=== PATIENT | female | born 1985 | race Caucasian/White ===

== ENCOUNTER 2020-03-23 15:41 | Emergency (ER) | payer MEDICAID ==
[~2020-03-23] VITALS: Ht 167.6 cm; Wt 100.0 kg
[2020-03-23] MEDS ORDERED: ONDANSETRON PF 4 MG/2 ML VIAL. IVP ONE (16:15)
[2020-03-23] MEDS ORDERED: fentaNYL PF VIAL 100 MCG/2 ML VIAL IVP ONE ×2 (16:15→18:30)
[2020-03-23] MEDS ORDERED: IV NORMAL SALINE 1000ML BAG 1,000 ML IV SCH (16:15)
--- NOTE | 2020-03-23 16:20 | PHYS DOC ---
General Adult EDM: Chief Complaint: ABDOMINAL PAIN HPI: HPI: Patient is a 34 year old female who presents with 2 days ago began having bilateral lower abdominal "sharp tearing type pain". She states that she was taking Tylenol for the pain. She rates an 8 out of 10 states is constant. She states an hour ago she got up and began having vaginal bleeding of which she states she felt a gush of blood but the bleeding slowed down and she states she is not bleeding heavily. She rates her pain an 8 out of 10. She states that she does have low bilateral back pain that is aching also. Patient states she has had 3 C-sections, tubal ligation. She states she has not been to a thread grinder tool in quite some time. She states she also has endometriosis. States she is not due for her menstrual period until April 03. Review of Systems: Review of Systems: Constitutional: Denies fever or chills. [] Eyes: Denies change in visual acuity. [] HENT: Denies nasal congestion or sore throat. [] Respiratory: Denies cough or shortness of breath. [] Cardiovascular: Denies chest pain or edema. [] GI: + abdominal pain, +nausea, +vomiting, denies bloody stools or diarrhea. [] : Denies dysuria.+ Vaginal bleeding [] Musculoskeletal: + Bilateral lower back pain or joint pain. [] Integument: Denies rash. [] Neurologic: Denies headache, focal weakness or sensory changes. [] Endocrine: Denies polyuria or polydipsia. [] Lymphatic: Denies swollen glands. [] Psychiatric: Denies depression or anxiety. [] Heart Score: Risk Factors: Risk Factors: DM, Current or recent (<one month) smoker, HTN, HLP, family history of CAD, obesity. Risk Scores: Score 0 - 3: 2.5% MACE over next 6 weeks - Discharge Home Score 4 - 6: 20.3% MACE over next 6 weeks - Admit for Clinical Observation Score 7 - 10: 72.7% MACE over next 6 weeks - Early Invasive Strategies Current Medications: Current Medications Medications (Trade) Dose Ordered Sig/Lexii Start Time Stop Time Status Last Admin Dose Admin Fentanyl Citrate (Fentanyl 2ml Vial) 50 mcg 1X ONCE 03/23/20 16:15 03/23/20 16:16 Ondansetron HCl (Zofran) 4 mg 1X ONCE 03/23/20 16:15 03/23/20 16:16 Sodium Chloride 1,000 ml @ 1,000 mls/hr Q1H 03/23/20 16:15 03/23/20 17:14 Allergies: Allergies: Allergies Coded Allergies Type Severity Reaction Last Updated Verified No Known Drug Allergies 03/23/20 No Physical Exam: PE: Constitutional: Well developed, well nourished, no acute distress, non-toxic appearance. [] HENT: Normocephalic, atraumatic, bilateral external ears normal, oropharynx moist, no oral exudates, nose normal. [] Eyes: PERRLA, EOMI, conjunctiva normal, no discharge. [] Neck: Normal range of motion, no tenderness, supple, no stridor. [] Cardiovascular:Heart rate regular rhythm, no murmur [] Lungs & Thorax: Bilateral breath sounds clear to auscultation [] Abdomen: Bowel sounds normal, soft, bilateral lower tenderness, no masses, no pulsatile masses. [] Skin: Warm, dry, no erythema, no rash. [] Back: No tenderness, no CVA tenderness. [] Extremities: No tenderness, no cyanosis, no clubbing, ROM intact, no edema. [] Neurologic: Alert and oriented X 3, normal motor function, normal sensory function, no focal deficits noted. [] Psychologic: Affect normal, judgement normal, mood normal. [] EKG: EKG: [] Radiology/Procedures: Radiology/Procedures: [] Impression: [facility] [address] [place] [address] IMAGING REPORT Signed PATIENT: ZACH RUIZ ACCOUNT: [id number] : 1985 LOCATION: ER AGE: 34 SEX: F EXAM STATUS: REG ER ORD. PHYSICIAN: SARITA GOLDBERG APRN REASON: vomiting, sharp lower abd pain, tenderness lower PROCEDURE: CT ABD PELV W/ IV CONTRST ONLY INDICATION: Reason: vomiting, sharp lower abd pain, tenderness lower / Spl. Instructions: INJ 75ML OMNI 300 / History: . COMPARISON: July 2012 TECHNIQUE: Axial CT images obtained through the abdomen and pelvis with contrast. One or more of the following individualized dose reduction techniques were utilized for this examination: 1. Automated exposure control; 2. Adjustment of the mA and/or kV according to patient size; 3. Use of iterative reconstruction technique. FINDINGS: The abdominal aorta is not aneurysmal. No intrahepatic bile duct dilation. No peripancreatic fluid collection. Spleen unremarkable. Left adrenal nodule measuring up to 22 mm. Right adrenal nodule measuring up to 25 mm. No hydronephrosis. High density at the right renal pelvis could be from nonobstructive stone. The urinary bladder is decompressed with some prominence the wall but limited assessment secondary to decompression. Uterus is visualized. Colonic diverticulosis. Wall thickening of the sigmoid colon with adjacent edema to the fat. No periappendiceal inflammatory changes. No dilated loops of bowel suggest obstruction. There is some degenerative changes the spine. IMPRESSION: * Wall thickening and inflammatory changes at the sigmoid colon which can be seen with diverticulitis. * Bilateral adrenal nodules are identified and not well characterized on this exam. If more complete characterization is desired either CT or MRI adrenal protocol could further assess. Electronically signed by: Leny Vasquez MD (03/23/2020 5:28 PM) [id number] DICTATED and SIGNED BY: LENY VASQUEZ MD DATE: 03/23/20 [id number] [facility] [address] [place], [place] [id number] IMAGING REPORT Signed PATIENT: ZACH RUIZ ACCOUNT: [id number] : 1985 LOCATION: ER AGE: 34 SEX: F EXAM STATUS: REG ER ORD. PHYSICIAN: SARITA GOLDBERG APRN REASON: pelvic pain, vaginal bleeding PROCEDURE: PELVIS W/TV EXAM: Pelvic sonogram. HISTORY: Pain. Vaginal bleeding. TECHNIQUE: Sonographic imaging of the pelvis was performed. COMPARISON: None. FINDINGS: The uterus is normal in size. The endometrial stripe is normal in thickness. The ovaries are unremarkable. There is no pelvic free fluid. There are prominent air-filled loops of bowel within the pelvis. IMPRESSION: Prominent air-filled loops of bowel within the pelvis. Otherwise, unremarkable pelvic sonogram. Electronically signed by: January Mcguire MD (03/23/2020 6:42 PM) [facility] DICTATED and SIGNED BY: JANUARY MCGUIRE MD DATE: 03/23/20 [id number] 0 Course & Med Decision Making: Course & Med Decision Making Pertinent Labs and Imaging studies reviewed. (See chart for details) See HPI. Bilateral lower abdominal tenderness with palpation. Patient states she feels bloated. Abdomen is soft. Slightly distended. No CVA tenderness. Vital signs within normal notes. Patient denies diarrhea, chest pain, shortness of air, dizziness, headache, focal weakness, numbness or tingling, vision changes, syncope. She denies any concern for sexually transmitted disease. She states she has been keeping water down but had been vomiting for last couple days and has not eaten anything. Patient is p.o. challenge successfully. IMPRESSION: * Wall thickening and inflammatory changes at the sigmoid colon which can be seen with diverticulitis. * Bilateral adrenal nodules are identified and not well characterized on this exam. If more complete characterization is desired either CT or MRI adrenal protocol could further assess. Pelvic ultrasound shows no acute findings. Patient is tolerating p.o. She is afebrile. Patient is stable. Patient's urine is dirty. The ciprofloxacin will cover UTI if present. Being the patient is stable and in no acute distress and she is tolerating p.o. I think that it is appropriate that patient can go home and follow-up as an outpatient. Patient is given dose of Flagyl and ciprofloxacin in the ED. She will be sent home on Cipro and Flagyl and pain and nausea medicine. [] [place] Disclaimer: Dragrafiq Disclaimer: This electronic medical record was generated, in whole or in part, using a voice recognition dictation system. Departure Departure Impression: Primary Impression: Diverticulitis Additional Impression: Vaginal bleeding Disposition: DC HOME SELF CARE/HOMELESS Condition: STABLE Referrals: NON,STAFF (PCP) CATE GONG Jr, MD, SCOTT S MD Patient Instructions: Diverticulitis, Nausea and Vomiting Additional Instructions: Follow-up with a GI doctor I have referred you too, Dr Hitchcock. Also follow-up with a thread grinder tool if needed and we have also referred you to a thread grinder tool Dr Gong. Take medications as prescribed and with food. Do not drink any alcohol with the metronidazole as it will make you very sick to your stomach. If you are unable to hold down fluids or food or the medication return to the emergency room. Scripts Hydrocodone/Apap 5-325 (NORCO 5-325 TABLET) 1 Each Tablet 1 TAB PO PRN Q6HRS PRN for PAIN, #10 TAB 0 Refills Prov: SARITA GOLDBERG [employer] 03/23/20 Metronidazole (FLAGYL) 500 Mg Tablet 1 TAB PO BID, #14 TAB Prov: SARITA GOLDBERG [employer] 03/23/20 Ciprofloxacin Hcl (CIPRO) 500 Mg Tablet 1 TAB PO BID for 7 Days, #14 TAB 0 Refills Prov: SARITA GOLDBERG [employer] 03/23/20 Ondansetron (ONDANSETRON ODT) 4 Mg Tab.rapdis 1 TAB PO PRN Q6-8HRS, #24 TAB Prov: SARITA GOLDBERG [employer]ER 03/23/20 SARITA GOLDBERG APRN Mar 23, 2020 16:20
[2020-03-23 16:27] LABS: BASO # 0.1 x10^3/uL (0.0-0.2); BASO % 1 % (0-3); EOS # 0.3 x10^3/uL (0.0-0.7); EOS % 2 % (0-3); HEMATOCRIT 41.3 % (36.0-47.0); HEMOGLOBIN 13.8 g/dL (12.0-15.5); LYMPH # 3.3 x10^3/uL (1.0-4.8); LYMPH % 20 % (24-48); MEAN CORPUSCULAR HEMOGLOBIN 28 pg (25-35); MEAN CORPUSCULAR HGB CONC 34 g/dL (31-37); MEAN CORPUSCULAR VOLUME 85 fL (79-100); MONO # 1.4 x10^3/uL (0.0-1.1); MONO % 8 % (0-9); NEUT # 11.3 x10^3/uL (1.8-7.7); NEUT % 69 % (31-73); PLATELET COUNT 353 x10^3/uL (140-400); RED BLOOD COUNT 4.86 x10^6/uL (3.50-5.40); RED CELL DISTRIBUTION WIDTH 14.1 % (11.5-14.5); WHITE BLOOD COUNT 16.3 x10^3/uL (4.0-11.0)
[2020-03-23 16:34] LABS: CALCIUM 9.7 mg/dL (8.5-10.1); CREATININE 0.7 mg/dL (0.6-1.0); GFR 95.2; POTASSIUM 4.3 mmol/L (3.5-5.1)
[2020-03-23 16:40] LABS: ALBUMIN 3.6 g/dL (3.4-5.0); ALBUMIN/GLOBULIN RATIO 0.9 (1.0-1.7); TOTAL BILIRUBIN 0.4 mg/dL (0.2-1.0); TOTAL PROTEIN 7.8 g/dL (6.4-8.2)
[2020-03-23] MEDS ORDERED: CONTRAST GIVEN. MC PRN (16:45)
[2020-03-23] MEDS ORDERED: IOHEXOL 300 MG/ML 100ML VIAL. IV ONE (16:45)
--- NOTE | 2020-03-23 17:31 | RAD ---
INDICATION: Reason: vomiting, sharp lower abd pain, tenderness lower / Spl. Instructions: INJ 75ML OMNI 300 / History: . COMPARISON: July 2012 TECHNIQUE: Axial CT images obtained through the abdomen and pelvis with contrast. One or more of the following individualized dose reduction techniques were utilized for this examination: 1. Automated exposure control; 2. Adjustment of the mA and/or kV according to patient size; 3. Use of iterative reconstruction technique. FINDINGS: The abdominal aorta is not aneurysmal. No intrahepatic bile duct dilation. No peripancreatic fluid collection. Spleen unremarkable. Left adrenal nodule measuring up to 22 mm. Right adrenal nodule measuring up to 25 mm. No hydronephrosis. High density at the right renal pelvis could be from nonobstructive stone. The urinary bladder is decompressed with some prominence the wall but limited assessment secondary to decompression. Uterus is visualized. Colonic diverticulosis. Wall thickening of the sigmoid colon with adjacent edema to the fat. No periappendiceal inflammatory changes. No dilated loops of bowel suggest obstruction. There is some degenerative changes the spine. IMPRESSION: * Wall thickening and inflammatory changes at the sigmoid colon which can be seen with diverticulitis. * Bilateral adrenal nodules are identified and not well characterized on this exam. If more complete characterization is desired either CT or MRI adrenal protocol could further assess. Electronically signed by: Maciel Chun MD (03/23/2020 5:28 PM) [id number]
[2020-03-23] MEDS ORDERED: CIPROFLOXACIN 400MG PREMIX 200 ML IV ONE (17:45)
[2020-03-23 18:20] LABS: BILIRUBIN,URINE SMALL (NEG); CLARITY,URINE CLOUDY; NITRITE,URINE NEGATIVE (NEG); PH,URINE 5.5 (<5.0-8.0); PROTEIN,URINE 30 mg/dL (NEG-TRACE)
[2020-03-23 18:30] LABS: COLOR,URINE DK YELLOW
[2020-03-23 18:32] LABS: BACTERIA,URINE MODERATE /HPF (0-FEW)
[2020-03-23 18:33] LABS: RBC,URINE OCC /HPF (0-2)
[2020-03-23 18:40] LABS: BARBITURATES NEG (NEG); BENZODIAZEPINES NEG (NEG); CANNABINOIDS NEG (NEG); COCAINE NEG (NEG); METHADONE NEG (NEG); OPIATES NEG (NEG); PHENCYCLIDINE NEG (NEG)
--- NOTE | 2020-03-23 18:44 | RAD ---
EXAM: Pelvic sonogram. HISTORY: Pain. Vaginal bleeding. TECHNIQUE: Sonographic imaging of the pelvis was performed. COMPARISON: None. FINDINGS: The uterus is normal in size. The endometrial stripe is normal in thickness. The ovaries are unremarkable. There is no pelvic free fluid. There are prominent air-filled loops of bowel within the pelvis. IMPRESSION: Prominent air-filled loops of bowel within the pelvis. Otherwise, unremarkable pelvic sonogram. Electronically signed by: January Pepe MD (03/23/2020 6:42 PM) [facility]
[2020-03-23 18:46] LABS: AMPHETAMINE/METHAMPHETAMINE NEG (NEG)
[2020-03-23] MEDS ORDERED: IV NORMAL SALINE 1000ML BAG 1,000 ML IV ONE (19:00)
[2020-03-23] MEDS ORDERED: CIPR500T94 PO (19:32)
[2020-03-23] MEDS ORDERED: ONDA4TAB12 PO (19:32)
[2020-03-23] MEDS ORDERED: METR500T PO (19:32)
[2020-03-23] MEDS ORDERED: HYDR-3164 PO (19:34)
[2020-03-23 20:33] VITALS: BP 112/68
== END 2020-03-23 20:55 | disposition home or self-care (01) ==
LOC: ER 15:41
DX: K57.32 Diverticulitis of large intestine without perforation or abscess without bleeding (principal); N93.9 Abnormal uterine and vaginal bleeding, unspecified; R10.31 Right lower quadrant pain; R10.32 Left lower quadrant pain; R11.2 Nausea with vomiting, unspecified
CPT/HCPCS: 36415; 74177; 76830; 76856; 80053; 80307; 81001; 81025; 83605; 83690; 85025; 87086; 96361; 96365; 96366; 96368; 96375; 96376; 99285; J0744; J2405; J3010; J3490; J7030; Q9967

== ENCOUNTER 2020-03-30 11:15 | Emergency (ER) | payer MEDICAID ==
[~2020-03-30] VITALS: Ht 167.6 cm; Wt 97.0 kg
[~2020-03-30 11:15] MED LIST: CIPR500T94 PO; HYDR-3164 PO; METR500T PO; ONDA4TAB12 PO
[2020-03-30] MEDS ORDERED: CONTRAST GIVEN. MC PRN (12:15)
--- NOTE | 2020-03-30 12:16 | PHYS DOC ---
Past Medical History Past Medical History: Diverticulitis, Other Additional Past Medical Histor: ENDOMETRIOSIS Past Surgical History: , Tubal ligation Smoking Status: Current Every Day Smoker Alcohol Use: None General Adult EDM: Chief Complaint: FEVER HPI: HPI: Patient is a 34 year old female presents to the emergency room for reevaluation of left lower quadrant abdominal pain. Patient was seen in this emergency room 1 week ago and diagnosed with diverticulitis. She is not having any diarrhea, states unsure when her last bowel movement was. She is nauseated with no vomiting. States this morning had a fever of 103 degrees. She has finished her antibiotics of Cipro and Flagyl. She states increased abdominal pain. States intermittently feeling lightheaded and unwell. She took her hydrocodone early this morning. Review of Systems: Review of Systems: Constitutional: Reports fever and chills. [] Eyes: Denies change in visual acuity. [] HENT: Denies nasal congestion or sore throat. [] Respiratory: Denies cough or shortness of breath. [] Cardiovascular: Denies chest pain or edema. [] GI: Reports abdominal pain, nausea, denies vomiting, bloody stools or diarrhea. [] : Denies dysuria. [] Musculoskeletal: Denies back pain or joint pain. [] Integument: Denies rash. Reports pruritic areas on skin [] Neurologic: Denies headache, focal weakness or sensory changes. [] Endocrine: Denies polyuria or polydipsia. [] Lymphatic: Denies swollen glands. [] Psychiatric: Denies depression or anxiety. [] Heart Score: Risk Factors: Risk Factors: DM, Current or recent (<one month) smoker, HTN, HLP, family history of CAD, obesity. Risk Scores: Score 0 - 3: 2.5% MACE over next 6 weeks - Discharge Home Score 4 - 6: 20.3% MACE over next 6 weeks - Admit for Clinical Observation Score 7 - 10: 72.7% MACE over next 6 weeks - Early Invasive Strategies Current Medications: Current Medications Medications (Trade) Dose Ordered Sig/Lexii Start Time Stop Time Status Last Admin Dose Admin Info (CONTRAST GIVEN -- Rx MONITORING) 1 each PRN DAILY PRN 03/30/20 12:15 04/01/20 12:14 Iohexol (Omnipaque 300 Mg/ml) 75 ml 1X ONCE 03/30/20 12:15 12/9/20 12:16 Morphine Sulfate (Morphine Sulfate) 4 mg PRN Q15MIN PRN 03/30/20 12:00 03/31/20 11:59 Sodium Chloride 1,000 ml @ 1,000 mls/hr Q1H 03/30/20 12:00 03/30/20 12:59 Allergies: Allergies: Allergies Coded Allergies Type Severity Reaction Last Updated Verified No Known Drug Allergies 03/23/20 No Physical Exam: PE: Constitutional: Well developed, well nourished, no acute distress, non-toxic appearance. [] HENT: Normocephalic, atraumatic, bilateral external ears normal, oropharynx moist, no oral exudates, nose normal. [] Eyes: PERRLA, EOMI, conjunctiva normal, no discharge. [] Neck: Normal range of motion, no tenderness, supple, no stridor. [] Cardiovascular:Heart rate regular rhythm, no murmur [] Lungs & Thorax: Bilateral breath sounds clear to auscultation [] Abdomen: Bowel sounds normal, soft, no tenderness, no masses, no pulsatile masses. [] Skin: Warm, dry, no erythema, no rash. [] Back: No tenderness, no CVA tenderness. [] Extremities: No tenderness, no cyanosis, no clubbing, ROM intact, no edema. [] Neurologic: Alert and oriented X 3, normal motor function, normal sensory function, no focal deficits noted. [] Psychologic: Affect normal, judgement normal, mood normal. [] Current Patient Data: Labs: Laboratory Tests Test 03/30/20 12:02 POC Urine HCG, Qualitative Hcg negative (Negative) Vital Signs: Vital Signs Date Time Temp Pulse Resp B/P (MAP) Pulse Ox O2 Delivery O2 Flow Rate FiO2 03/30/20 11:50 99.0 90 18 122/80 (94) 98 Room Air 99.0 EKG: EKG: [] Radiology/Procedures: Radiology/Procedures: []REASON: FEVER, INCR PAIN, RECENT DX DIVERTICULITIS PROCEDURE: CT ABD PELV W/ IV CONTRST ONLY Examination: CT ABD PELV W/ IV CONTRST ONLY History: Reason: FEVER, INCR PAIN, RECENT DX DIVERTICULITIS / Spl. Instructions: [id number] 75ml / History: Comparison/Correlation: 03/23/2020 CT abdomen and pelvis with contrast Findings: Axial images of the abdomen and pelvis were obtained following IV contrast. Sagittal and coronal reformatted images were provided. Visualized lung bases are clear. Liver, spleen, pancreas, and kidneys are normal. Gallbladder fossa is unremarkable. Bilateral adrenal gland nodules are low-attenuation and similar to previous exam likely representing benign adenomatous involvement. No extraluminal gas. Appendix is normal. No bowel obstruction. Diverticulosis is present. Inflammatory findings about the distal sigmoid colon have almost completely resolved. No loculated collections. No acute bony process. Bilateral adnexal follicles which are probably physiologic are again seen. Impression: Significant decrease in diverticulitis or other inflammatory process about the distal sigmoid colon. No loculated collection or extraluminal gas. No new inflammatory process or findings of perforation. Bilateral adrenal gland nodules are stable, representing benign adenomas. MRI to be considered for more conclusive assessment by nonemergent basis if longer term stability is otherwise unknown. PQRS Compliance Statement: One or more of the following individualized dose reduction techniques were utilized for this examination: 1. Automated exposure control 2. Adjustment of the mA and/or kV according to patient size 3. Use of iterative reconstruction technique Electronically signed by: Gilberto Araujo MD (03/30/2020 12:54 PM) [id number] Course & Med Decision Making: Course & Med Decision Making Pertinent Labs and Imaging studies reviewed. (See chart for details) [] Vital signs stable, patient afebrile, nontoxic in appearance. No leukocytosis, labs within normal limits, CT indicates marked resolution of div erticulitis without evidence of perforation or acute pathology, on reevaluation, pain is better, patient tolerated p.o. fluids as well as eating some crackers without nausea or vomiting. She states does have pain medication as well as Zofran still at home. She will advance her diet slowly, starting with clear fluids when she gets home. She has already made a follow-up appointment with GI, this appointment is in April. She requested Covid testing since she had a fever earlier this morning, she is aware these test results are pending at time of discharge and she should quarantine until results received. Return to emergency room for new or worsening symptoms. Angelica Disclaimer: Angelica Disclaimer: This electronic medical record was generated, in whole or in part, using a voice recognition dictation system. Departure Departure Impression: Primary Impression: Vomiting Qualified Codes: R11.2 - Nausea with vomiting, unspecified Additional Impression: Abdominal pain Qualified Codes: R10.32 - Left lower quadrant pain Condition: IMPROVED Referrals: NO PCP (PCP) Patient Instructions: Diverticulosis Additional Instructions: You have been tested for or diagnosed with COVID-19. It is an infection caused by a new type of coronavirus. COVID-19 will cause cold-like or mild flu symptoms in most. It can cause more severe symptoms like problems breathing in some. There is no treatment for COVID-19. The body will clear the infection over time. Self-care will help to ease discomfort. Steps to Take: Self-Care Rest as needed. Healthy habits may help you feel better. Steps include: Choose healthy foods including fruits and vegetables. Drink water throughout the day. Get plenty of sleep each night. If you smoke, try to quit. It may ease breathing. Avoid alcohol. Keep Others Healthy The virus can spread to others. Droplets are released every time you sneeze or cough. The droplets can get into the mouth, nose, or eyes of people near you and lead to infection. To lower the chances of spreading COVID-19 to others: Stay at home until your doctor has said it is safe to leave. If you tested positive this will mean staying isolated until both of the following are true: At least 7 days have passed since the start of illness. You are free of fever for at least 72 hours without the use of medicine. During this time: - Avoid public areas, events, or transportation. Do not return to work or school until your doctor has said it is safe to do so. - Call ahead if you need to go to a medical center. Let them know you may have COVID-19. It will help them guide you where to go. They may also ask you to wear a facemask when you come to the office. - If you call for emergency medical services, let them know you may have COVID- 19. While at home: - Try to avoid close contact with others. Stay about 6 feet away. - If possible, spend most of your time in a separate room from others. - Use a face mask if you will be in close contact with others such as sharing a room or vehicle. - Have someone wipe down common surfaces in the home. Use household mule tender every day on areas like doorknobs, counters, or sinks. - Cough or sneeze into a tissue. Throw the tissue away right after use. If a tissue is not available, cough or sneeze into your elbow. - Wash your hands often. Wash them after sneezing or coughing. Use soap and water and wash for at least 20 seconds. Alcohol based hand connie cleaner can be used if soap and water is not available. - Do not prepare food for others. Avoid sharing personal items like forks, spoons, or toothbrushes. - Avoid close contact with pets while you are sick. There is no evidence of the virus passing to pets. This is a safety step until more is known about this virus. Isolation can be frustrating. Social interaction can help. Keep in touch with friends and family through phone and tech options. You can still interact with others in your home, just keep a safe distance of about 6 feet. Follow-up: Your doctors office will check in with you to see if there are any changes in your health. You may be asked to keep track of symptoms to share with them. They will also let you know when you are clear to be in public again. Problems to Look Out For: Contact your doctor if your recovery is not going as you expect. Get emergency care if you have problems such as: - Trouble breathing - Nonstop chest pain or pressure - Changes in awareness, confusion, or problems waking - Lips or face have bluish color - Worsening of symptoms If you think you have an emergency, call for emergency medical services right aw ay. As taken from [facility] DULCE COPE APRN Mar 30, 2020 12:16
[2020-03-30 12:17] LABS: BASO # 0.1 x10^3/uL (0.0-0.2); BASO % 1 % (0-3); EOS # 0.3 x10^3/uL (0.0-0.7); EOS % 3 % (0-3); HEMATOCRIT 39.7 % (36.0-47.0); HEMOGLOBIN 13.2 g/dL (12.0-15.5); LYMPH # 3.4 x10^3/uL (1.0-4.8); LYMPH % 35 % (24-48); MEAN CORPUSCULAR HEMOGLOBIN 29 pg (25-35); MEAN CORPUSCULAR HGB CONC 33 g/dL (31-37); MEAN CORPUSCULAR VOLUME 86 fL (79-100); MONO # 0.8 x10^3/uL (0.0-1.1); MONO % 8 % (0-9); NEUT % 53 % (31-73); PLATELET COUNT 365 x10^3/uL (140-400); RED BLOOD COUNT 4.64 x10^6/uL (3.50-5.40); RED CELL DISTRIBUTION WIDTH 14.2 % (11.5-14.5); WHITE BLOOD COUNT 9.6 x10^3/uL (4.0-11.0)
[2020-03-30 12:18] LABS: BILIRUBIN,URINE NEGATIVE (NEG); CLARITY,URINE CLEAR; COLOR,URINE YELLOW; NITRITE,URINE NEGATIVE (NEG); PROTEIN,URINE NEGATIVE (NEG-TRACE); UROBILINOGEN,URINE 0.2 mg/dL (0.2 mg/dL)
[2020-03-30] MEDS: IOHEXOL 300 MG/ML 100ML VIAL. IV ONE (12:22)
[2020-03-30 12:26] LABS: CALCIUM 8.6 mg/dL (8.5-10.1); CREATININE 0.7 mg/dL (0.6-1.0); GFR 95.2; POTASSIUM 4.1 mmol/L (3.5-5.1)
[2020-03-30 12:32] LABS: ALBUMIN 3.5 g/dL (3.4-5.0); ALBUMIN/GLOBULIN RATIO 1.1 (1.0-1.7); TOTAL BILIRUBIN 0.1 mg/dL (0.2-1.0); TOTAL PROTEIN 6.8 g/dL (6.4-8.2)
[2020-03-30 12:34] LABS: BACTERIA,URINE FEW /HPF (0-FEW); RBC,URINE OCC /HPF (0-2)
[2020-03-30] MEDS: IV NORMAL SALINE 1000ML BAG 1,000 ML IV SCH (12:41)
[2020-03-30] MEDS: MORPHINE SULFATE 4 MG/ML VIAL. IV/SQ PRN (12:41)
--- NOTE | 2020-03-30 12:57 | RAD ---
Examination: CT ABD PELV W/ IV CONTRST ONLY History: Reason: FEVER, INCR PAIN, RECENT DX DIVERTICULITIS / Spl. Instructions: [id number] 75ml / History: Comparison/Correlation: 03/23/2020 CT abdomen and pelvis with contrast Findings: Axial images of the abdomen and pelvis were obtained following IV contrast. Sagittal and coronal reformatted images were provided. Visualized lung bases are clear. Liver, spleen, pancreas, and kidneys are normal. Gallbladder fossa is unremarkable. Bilateral adrenal gland nodules are low-attenuation and similar to previous exam likely representing benign adenomatous involvement. No extraluminal gas. Appendix is normal. No bowel obstruction. Diverticulosis is present. Inflammatory findings about the distal sigmoid colon have almost completely resolved. No loculated collections. No acute bony process. Bilateral adnexal follicles which are probably physiologic are again seen. Impression: Significant decrease in diverticulitis or other inflammatory process about the distal sigmoid colon. No loculated collection or extraluminal gas. No new inflammatory process or findings of perforation. Bilateral adrenal gland nodules are stable, representing benign adenomas. MRI to be considered for more conclusive assessment by nonemergent basis if longer term stability is otherwise unknown. PQRS Compliance Statement: One or more of the following individualized dose reduction techniques were utilized for this examination: 1. Automated exposure control 2. Adjustment of the mA and/or kV according to patient size 3. Use of iterative reconstruction technique Electronically signed by: Gilberto Araujo MD (03/30/2020 12:54 PM) [id number]
[2020-03-30 14:23] VITALS: BP 124/66
== END 2020-03-30 14:35 | disposition home or self-care (01) ==
LOC: ER 11:15
DX: R10.32 Left lower quadrant pain (principal); R11.2 Nausea with vomiting, unspecified; Z20.828 Contact with and (suspected) exposure to other viral communicable diseases; F17.200 Nicotine dependence, unspecified, uncomplicated; Z98.51 Tubal ligation status
CPT/HCPCS: 36415; 74177; 80053; 81001; 81025; 83690; 85025; 93005; 96361; 96374; 99285; C9803; J2270; J7030; Q9967; U0003

== ENCOUNTER → 2020-04-01 | Outpatient (CLI) | payer MEDICAID, OTHER ==
[2020-03-30 14:23] VITALS: BP 124/66
[2020-04-01 11:03] LABS: BASO # 0.1 x10^3/uL (0.0-0.2); BASO % 1 % (0-3); EOS # 0.2 x10^3/uL (0.0-0.7); EOS % 3 % (0-3); HEMATOCRIT 39.3 % (36.0-47.0); HEMOGLOBIN 13.2 g/dL (12.0-15.5); LYMPH # 2.5 x10^3/uL (1.0-4.8); LYMPH % 28 % (24-48); MEAN CORPUSCULAR HEMOGLOBIN 29 pg (25-35); MEAN CORPUSCULAR HGB CONC 34 g/dL (31-37); MEAN CORPUSCULAR VOLUME 85 fL (79-100); MONO # 0.7 x10^3/uL (0.0-1.1); MONO % 8 % (0-9); NEUT # 5.4 x10^3/uL (1.8-7.7); NEUT % 61 % (31-73); PLATELET COUNT 361 x10^3/uL (140-400); RED BLOOD COUNT 4.61 x10^6/uL (3.50-5.40); RED CELL DISTRIBUTION WIDTH 13.9 % (11.5-14.5)
[2020-04-01 11:36] LABS: FREE T4 1.05 ng/dL (0.76-1.46); THYROID STIM HORMONE (TSH) 1.539 uIU/mL (0.358-3.74)
== END ==
LOC: LAB 10:31
PROVIDERS: ATTEND Obstetrics & Gynecology
DX: N92.0 Excessive and frequent menstruation with regular cycle (principal); N94.6 Dysmenorrhea, unspecified
CPT/HCPCS: 36415; 84146; 84439; 84443; 85025

== ENCOUNTER 2020-04-20 08:48 | Emergency (ER) | payer OTHER ==
[~2020-04-20] VITALS: Ht 167.6 cm; Wt 95.0 kg
[2020-04-20 09:01] VITALS: BP 159/67
[2020-04-20] MEDS ORDERED: NEOM10DR32 LEFT EAR (09:42)
--- NOTE | 2020-04-20 09:43 | ED.ADGEN ---
Past Medical History Past Medical History: Diverticulitis, Other Additional Past Medical Histor: ENDOMETRIOSIS Past Surgical History: , Tubal ligation Smoking Status: Current Every Day Smoker Alcohol Use: None General Adult EDM: Chief Complaint: EARACHE/EAR PAIN HPI: HPI: Patient is a 34 year old female who presents emergency department with complaints of left ear pain with yellow and blood-streaked drainage for the last few days. Patient denies any fever, cough, shortness of breath, sore throat, body aches, fatigue, rash, nausea, vomiting, diarrhea, or abdominal pain. Patient reports that she is having difficulty hearing out of her left ear. She denies any injury. Patient denies any routine use of airbags, she does not routinely put things in her ear. She currently rates her pain a 10 out of 10 on the pain scale, she denies any alleviating factors. Pain is worse with touch. Review of Systems: Review of Systems: Complete ROS is negative unless otherwise noted in HPI. Allergies: Allergies: Allergies Coded Allergies Type Severity Reaction Last Updated Verified No Known Drug Allergies 03/23/20 No Physical Exam: PE: See Above Constitutional: Well developed, well nourished, no acute distress, non-toxic appearance. [] HENT: Normocephalic, atraumatic, right external ear normal, bilateral TMs normal, nose normal; left external ear canal is swollen, red, warm, and tender to touch, concerning for otitis externa, no mastoid TTP or erythema Eyes: PERRLA, EOMI, conjunctiva normal, no discharge. [] Neck: Normal range of motion, no stridor; left anterior cervical chain enlargement, without tenderness Cardiovascular:Heart rate regular rhythm Lungs & Thorax: Respirations even and unlabored, no retractions, no respiratory distress Skin: Warm, dry, no erythema, no rash. [] Extremities: No cyanosis, ROM intact, no edema. [] Neurologic: Alert and oriented X 3, no focal deficits noted. [] Psychologic: Affect normal, judgement normal, mood normal. [] Current Patient Data: Vital Signs: Vital Signs Date Time Temp Pulse Resp B/P (MAP) Pulse Ox O2 Delivery O2 Flow Rate FiO2 04/20/20 09:01 99.5 80 18 159/67 (97) 96 Room Air 99.5 EKG: EKG: [] Heart Score: Risk Factors: Risk Factors: DM, Current or recent (<one month) smoker, HTN, HLP, family history of CAD, obesity. Risk Scores: Score 0 - 3: 2.5% MACE over next 6 weeks - Discharge Home Score 4 - 6: 20.3% MACE over next 6 weeks - Admit for Clinical Observation Score 7 - 10: 72.7% MACE over next 6 weeks - Early Invasive Strategies Radiology/Procedures: Radiology/Procedures: [] Course & Med Decision Making: Course & Med Decision Making Pertinent Labs and Imaging studies reviewed. (See chart for details) Attestation; I was personally available to the midlevel provider for consul tation with respect to patient care. All documentation, lab results and imaging have been reviewed and I am in agreement with the developed plan provided by the midlevel practitioner. Angelica Disclaimer: Angelica Disclaimer: This electronic medical record was generated, in whole or in part, using a voice recognition dictation system. Departure Departure Impression: Primary Impression: Diffuse otitis externa, left ear Disposition: 01 DC HOME SELF CARE/HOMELESS Condition: STABLE Referrals: NO PCP (PCP) Patient Instructions: Otitis Externa, [id number] Additional Instructions: Fill the prescription and use it as directed. You may take Tylenol or ibuprofen as needed for pain. Follow-up with your primary care doctor in 1 to 2 days for reevaluation, return to the ER if symptoms worsen or fever develops. Scripts Neomycin/Polymyxin B Sulf/Hc ([id number]-UT EAR SUSP) 10 Ml Drops.susp 4 DROP LEFT EAR TID for 7 Days, #10 ML 0 Refills Prov: NANCY CULP APRN 04/20/20 Problem Qualifiers Primary Impression: Diffuse otitis externa, left ear Chronicity: acute Qualified Codes: H60.312 - Diffuse otitis externa, left ear NANCY CULP APRN Apr 20, 2020 09:43 NASIM HOLLY DO Apr 20, 2020 16:00
== END 2020-04-20 09:45 | disposition home or self-care (01) ==
LOC: ER 08:48
DX: H60.312 Diffuse otitis externa, left ear (principal); F17.200 Nicotine dependence, unspecified, uncomplicated
CPT/HCPCS: 99283

== ENCOUNTER → 2020-05-09 | Outpatient (CLI) | payer MEDICAID, OTHER ==
[2020-04-20 09:01] VITALS: BP 159/67
[~2020-05-09] MED LIST changes: +ASPI-886 PO; +BUPR100T7 PO; +CEPH500T PO; +DOCU-109 PO; +GABA300C18 PO; +HYDR-2761 PO; +IBUP-1007 PO; +MAGN296S68 PO; +METF500T16 PO; +NEOM10DR32 LEFT EAR; +ORPH100T PO; +OXYC1TAB15 PO; +POLY17PO29 PO
== END ==
LOC: LAB 10:36
PROVIDERS: ATTEND Obstetrics & Gynecology
DX: Z01.812 Encounter for preprocedural laboratory examination (principal); N94.6 Dysmenorrhea, unspecified; Z20.828 Contact with and (suspected) exposure to other viral communicable diseases
CPT/HCPCS: U0003

== ENCOUNTER 2020-05-12 05:46 | Observation (INO) | payer MEDICAID ==
[~2020-05-12] VITALS: Ht 167.6 cm; Wt 99.0 kg
[2020-05-12] VITALS (14 sets, daily range): BP systolic 100–122; BP diastolic 46–76
[~2020-05-12 05:46] MED LIST changes: -ASPI-886 PO; -BUPR100T7 PO; -CEPH500T PO; -DOCU-109 PO; -GABA300C18 PO; -HYDR-2761 PO; -IBUP-1007 PO; -MAGN296S68 PO; -METF500T16 PO; -ORPH100T PO; -OXYC1TAB15 PO; -POLY17PO29 PO
[2020-05-12] MEDS: IV RINGERS,LACTATED 1000ML 1,000 ML IV SCH ×3 (06:28→11:08)
[2020-05-12] MEDS ORDERED: PROPOFOL 10 MG/ML (20ML) VIAL. IV ONE (06:36)
[2020-05-12] MEDS ORDERED: DEXAMETHASONE SOD PHOS 4 MG/ML VIAL ONE (06:37)
[2020-05-12] MEDS ORDERED: ONDANSETRON PF 4 MG/2 ML VIAL. ONE (06:37)
[2020-05-12] MEDS ORDERED: ROCURONIUM 50 MG/5 ML VIAL. ONE ×2 (06:37→07:55)
[2020-05-12] MEDS ORDERED: LIDOCAINE 2% PF 5 ML VIAL. ONE (06:37)
[2020-05-12] MEDS ORDERED: PROCHLORPERAZINE 10 MG/2 ML VIAL. IV PRN ×2 (07:00→09:30)
[2020-05-12] MEDS ORDERED: HYDROmorphone 2 MG/ML VIAL IV PRN (07:00)
[2020-05-12] MEDS ORDERED: fentaNYL PF VIAL 100 MCG/2 ML VIAL IV PRN (07:00)
[2020-05-12] MEDS ORDERED: ONDANSETRON PF 4 MG/2 ML VIAL. IV PRN ×2 (07:00→09:30)
[2020-05-12 07:15] LABS: BASO # 0.1 x10^3/uL (0.0-0.2); BASO % 1 % (0-3); EOS # 0.3 x10^3/uL (0.0-0.7); EOS % 4 % (0-3); HEMATOCRIT 37.5 % (36.0-47.0); HEMOGLOBIN 12.7 g/dL (12.0-15.5); LYMPH # 2.4 x10^3/uL (1.0-4.8); LYMPH % 28 % (24-48); MEAN CORPUSCULAR HEMOGLOBIN 29 pg (25-35); MEAN CORPUSCULAR HGB CONC 34 g/dL (31-37); MEAN CORPUSCULAR VOLUME 85 fL (79-100); MONO # 0.8 x10^3/uL (0.0-1.1); MONO % 9 % (0-9); NEUT # 5.2 x10^3/uL (1.8-7.7); NEUT % 59 % (31-73); PLATELET COUNT 320 x10^3/uL (140-400); RED CELL DISTRIBUTION WIDTH 14.3 % (11.5-14.5); WHITE BLOOD COUNT 8.8 x10^3/uL (4.0-11.0)
[2020-05-12] MEDS ORDERED: SURGICEL HEMOSTAT 4X8 EACH. ONE (07:34)
[2020-05-12] MEDS ORDERED: INDIGOTINDISULFONATE SODIUM 40 MG/5 ML AMPUL. ONE (07:34)
[2020-05-12] MEDS ORDERED: ESTROGENS, CONJ VAGINAL CREAM 30GM TUBE. ONE (07:34)
[2020-05-12] MEDS ORDERED: BUPIVACAINE-EPI 0.25% 30 ML VIAL KIT. ONE (07:35)
[2020-05-12] MEDS ORDERED: LIDOCAINE 2%/EPI 1:100,000 20 ML VIAL. ONE ×2 (07:35→07:57)
[2020-05-12] MEDS ORDERED: MIDAZOLAM HCL/PF 2 MG/2 ML VIAL. ONE (07:38)
[2020-05-12] MEDS ORDERED: SEVOFLURANE 61 TO 120 MINUTES. IH ONE (07:38)
[2020-05-12] MEDS ORDERED: fentaNYL PF VIAL 100 MCG/2 ML VIAL ONE ×2 (07:39→09:51)
[2020-05-12] MEDS ORDERED: ceFAZolin SODIUM IV Push 1 GM VIAL. IVP PRN (08:00)
[2020-05-12] MEDS ORDERED: ALBUTEROL SULFATE 8GM INHALER. INH ONE (08:36)
[2020-05-12] MEDS ORDERED: GLYCOPYRROLATE 1 MG/5 ML VIAL. ONE (08:52)
[2020-05-12] MEDS ORDERED: KETOROLAC 30 MG/ML VIAL. ONE (08:52)
[2020-05-12] MEDS ORDERED: NEOSTIGMINE 10 MG/10 ML VIAL. ONE (08:52)
--- NOTE | 2020-05-12 09:21 | PDOC ---
BRIEF OPERATIVE NOTE Date: May 12, 2020 Pre-Op Diagnosis 1. Menorrhagia 2. Dysmenorrhea 3. Dyspareunia Post-Op Diagnosis Same Procedure Performed [facility] Surgeon Dr. Gong Truck Cleaner Elevator Operator: Darvin Anesthesia Type: General Blood Loss 50 ml Specimens Obtained cervix and uterus Findings enlarged uterus, nml fallopian tubes and ovaries ba. Complications none Operative Note see dictation CATE GONG Jr, MD May 12, 2020 09:21
--- NOTE | 2020-05-12 09:29 | OP ---
DATE OF SURGERY: 05/12/2020 PREOPERATIVE DIAGNOSES: 1. Menorrhagia. 2. Dysmenorrhea. 3. Dyspareunia. POSTOPERATIVE DIAGNOSES: 1. Menorrhagia. 2. Dysmenorrhea. 3. Dyspareunia. PROCEDURE: LAVH. SURGEON: Cate Gong MD BOW MAKER CUSTOM: Darvin. ANESTHESIA: GETA. ESTIMATED BLOOD LOSS: 50 mL. COMPLICATIONS: None. FINDINGS: Enlarged uterus, normal fallopian tubes and ovaries bilaterally. SUMMARY: A 34-year-old with long history of menorrhagia, dysmenorrhea, and dyspareunia, unresponsive to medical treatment, requiring surgical management. The patient was counseled on risks, benefits and expectations of LAVH and voiced clear understanding to proceed. DESCRIPTION OF PROCEDURE: The patient was taken to surgery suite and placed in dorsal lithotomy position. She was prepped with Betadine for vaginal prep and ChloraPrep for abdominal prep. After adequate anesthesia, bivalve speculum was placed vaginally. Anterior lip of the cervix grasped with single tooth tenaculum. The uterine acorn manipulator was then placed. The bivalve speculum was removed. Attention was now placed on abdomen. Small transverse skin incision was made just below the umbilicus with the scalpel. Veress needle was then placed through the infraumbilical incision site. The abdomen was allowed to insufflate up to 1-1/2 liters CO2 gas. The Veress needle was then removed. A 5 mm trocar was placed. Scope was positioned. The uterus was enlarged. There were a few adhesions in the pelvic cul-de-sac. The fallopian tubes and ovaries appeared normal bilaterally. Two additional incisions made in the left lower quadrant, which 5 mm trocars were placed. With aid of graspers and EnSeal device, the right round ligament was coagulated and dissected. The right utero-ovarian pedicle was coagulated and dissected. The right broad ligament was coagulated and dissected down to the uterine artery. Same process took place with left adnexa. Bladder flap was created using sharp dissection with the EnSeal device and hydrodissection. The pedicles all hemostatic. We then proceeded vaginally. Weighted speculum and curved Lamoni placed vaginally. The single tooth tenaculum and uterine acorn manipulator were removed. Shaila clamps were placed on the anterior and posterior lip of the cervix. The cervix was then injected with 2% lidocaine with epinephrine in circumferential manner. Bovie cautery was utilized to circumscribe the cervix. The vaginal mucosa was dissected away from the lower uterine segment using blunt dissection with a moist Ray-Rhoda. Parametrial tissue and cardinal ligaments were clamped bilaterally, cut, and suture ligated. The posterior cul-de-sac was then entered sharply using curved Wilde scissors. Long weighted speculum were placed. Uterosacral ligaments were clamped bilaterally, cut, and suture ligated. Anterior cul-de-sac was entered bluntly. One additional pedicle was taken on the right side of the uterus, which was clamped, cut, and suture ligated. The cervix and uterus were then removed in their entirety. A modified Ott's culdoplasty incorporating the uterosacral ligaments bilaterally was performed using 0 Vicryl suture. The remainder of the vaginal cuff was reapproximated using 2-0 Vicryl suture in [id number] manner. Moist vaginal packing was placed. Attention was once again placed on abdomen. The abdomen was once again insufflated with 1-1/2 liters CO2 gas. The scope was positioned. The posterior vaginal cuff was visualized and was hemostatic and was verified with suction irrigation. Small amount of normal saline was left in posterior cul-de-sac. The trocars were then removed under direct visualization. Abdomen was allowed to deflate as much as possible along with mechanical manipulation. The three skin incisions were reapproximated using 4-0 Vicryl suture in subcuticular manner. A 0.25% Marcaine with epinephrine was injected at each incision site. The patient tolerated the procedure well and was taken to recovery room in stable condition. Sponge and needle count correct x 3. CATE GONG MD DR: RADHA/concepcion JOB#: [id number] / [id number]
[2020-05-12] MEDS ORDERED: ZOLPIDEM 5 MG TABLET. PO PRN (09:30)
[2020-05-12] MEDS ORDERED: SIMETHICONE 80 MG TAB.CHEW PO PRN (09:30)
[2020-05-12] MEDS ORDERED: KETOROLAC 30 MG/ML VIAL. IV PRN (09:30)
[2020-05-12] MEDS ORDERED: CALCIUM CARBONATE 500 MG TAB.CHEW PO PRN (09:30)
[2020-05-12] MEDS ORDERED: OPIUM/BELLADONNA 30/16.2MG SUPP.RECT. PR PRN (09:30)
[2020-05-12] MEDS ORDERED: diphenhydrAMINE HCL 25 MG CAPSULE PO PRN (09:30)
[2020-05-12] MEDS ORDERED: DEXTROSE 50% 25 GM / 50ML DISP.SYRIN. IV PRN (09:30)
[2020-05-12] MEDS ORDERED: 0.9 % SODIUM CHLORIDE 10 ML DISP.SYRIN. IV PRN (09:30)
[2020-05-12] MEDS ORDERED: diphenhydrAMINE 50 MG/ML VIAL IV PRN (09:30)
[2020-05-12] MEDS ORDERED: PROCHLORPERAZINE 10 MG/2 ML VIAL. ONE (09:50)
[2020-05-12] MEDS ORDERED: MORPHINE SULFATE 2 MG/ML VIAL. ONE (09:51)
[2020-05-12] MEDS: fentaNYL PF VIAL 100 MCG/2 ML VIAL IV PRN ×2 (09:55→10:53)
[2020-05-12] MEDS: MORPHINE SULFATE 2 MG/ML VIAL. IV PRN ×2 (09:55→10:54)
[2020-05-12] MEDS: oxyCODONE/APAP 5/325 1 TAB TABLET PO PRN ×3 (12:11→21:29)
[2020-05-12] MEDS: GABAPENTIN 300 MG CAPSULE. PO SCH ×2 (16:45→21:29)
[2020-05-12] MEDS ORDERED: ONDANSETRON ODT 4 MG TAB.RAPDIS. PO PRN (18:45)
[2020-05-13] MEDS: oxyCODONE/APAP 5/325 1 TAB TABLET PO PRN ×4 (01:33→14:18)
[2020-05-13 02:57] VITALS: BP 109/47
[2020-05-13] MEDS: GABAPENTIN 300 MG CAPSULE. PO SCH ×2 (06:09→14:16)
[2020-05-13 06:50] LABS: BASO # 0.1 x10^3/uL (0.0-0.2); BASO % 1 % (0-3); EOS # 0.1 x10^3/uL (0.0-0.7); EOS % 1 % (0-3); HEMATOCRIT 33.7 % (36.0-47.0); HEMOGLOBIN 11.1 g/dL (12.0-15.5); LYMPH # 2.8 x10^3/uL (1.0-4.8); LYMPH % 21 % (24-48); MEAN CORPUSCULAR HEMOGLOBIN 28 pg (25-35); MEAN CORPUSCULAR HGB CONC 33 g/dL (31-37); MEAN CORPUSCULAR VOLUME 86 fL (79-100); MONO # 1.1 x10^3/uL (0.0-1.1); MONO % 9 % (0-9); NEUT % 69 % (31-73); PLATELET COUNT 287 x10^3/uL (140-400); RED BLOOD COUNT 3.91 x10^6/uL (3.50-5.40); RED CELL DISTRIBUTION WIDTH 14.1 % (11.5-14.5); WHITE BLOOD COUNT 13.1 x10^3/uL (4.0-11.0)
[2020-05-13 07:00] VITALS: BP 103/71
[2020-05-13 09:45] VITALS: BP 126/58
--- NOTE | 2020-05-13 10:00 | NUR ---
Patient krause to be removed POD#1 per doctor order as well as her vaginal packing. At 0700 krause removed without any complications noted and around 0715 her vaginal packing was removed with only a small amount of blood present throughout the packing. Packing came out all in one piece. Telfa islands on her lap sites each had some small bloody drainage noted and were removed. Lap sites to the right and lower abdomen both covered back up with some steri strips but lap site near belly button left ASSURANCE SENIOR. Around 0945 patient was transferred to the toilet to try to void. About half way to the toilet she stated she was dizzy and felt as though the room was spinning. She was steady on her feet still and was able to make it to the toilet. She voided 200 mls with some slight burning noted post krause removal this AM. Dizziness started to go away so we were able to walk back to her bed but she complained of dizziness with that as well. Vital signs assessed once in bed and stable at that time. After about five minutes the dizziness went away. Headache now present. Will continue to monitor.
[2020-05-13 10:14] VITALS: BP 101/41
--- NOTE | 2020-05-13 15:38 | PDOC ---
SURGICAL PROGRESS NOTE DATE: 05/13/20 TIME: 15:37 Subjective Pt. feeling well. No complaints. Vital Signs Vital Signs Date Time Temp Pulse Resp B/P (MAP) Pulse Ox O2 Delivery O2 Flow Rate FiO2 05/13/20 14:18 95 Room Air 05/13/20 10:14 98.8 85 18 101/41 (61) 98.8 05/12/20 16:46 2.0 I&O Intake and Output 05/13/20 07:00 Intake Total 4900 ml Output Total 2215 ml Balance 2685 ml Intake Oral 1900 ml IV Total 3000 ml Output Urine Total 1925 ml Emesis 240 ml Estimated Blood Loss 50 ml General: Alert, Oriented X3, Cooperative HEENT: Atraumatic Lungs: Clear to auscultation Heart: Normal S1 Abdomen: Normal bowel sounds, Soft, No masses, Other (mild tenderness) Neuro: Normal gait Psych/Mental Status: Mental status NL Labs Laboratory Tests Test 05/12/20 06:00 05/12/20 06:16 05/13/20 06:26 White Blood Count 8.8 x10^3/uL (4.0-11.0) 13.1 x10^3/uL (4.0-11.0) Red Blood Count 4.40 x10^6/uL (3.50-5.40) 3.91 x10^6/uL (3.50-5.40) Hemoglobin 12.7 g/dL (12.0-15.5) 11.1 g/dL (12.0-15.5) Hematocrit 37.5 % (36.0-47.0) 33.7 % (36.0-47.0) Mean Corpuscular Volume 85 fL (79-100) 86 fL (79-100) Mean Corpuscular Hemoglobin 29 pg (25-35) 28 pg (25-35) Mean Corpuscular Hemoglobin Concent 34 g/dL (31-37) 33 g/dL (31-37) Red Cell Distribution Width 14.3 % (11.5-14.5) 14.1 % (11.5-14.5) Platelet Count 320 x10^3/uL (140-400) 287 x10^3/uL (140-400) Neutrophils (%) (Auto) 59 % (31-73) 69 % (31-73) Lymphocytes (%) (Auto) 28 % (24-48) 21 % (24-48) Monocytes (%) (Auto) 9 % (0-9) 9 % (0-9) Eosinophils (%) (Auto) 4 % (0-3) 1 % (0-3) Basophils (%) (Auto) 1 % (0-3) 1 % (0-3) Neutrophils # (Auto) 5.2 x10^3/uL (1.8-7.7) 9.0 x10^3/uL (1.8-7.7) Lymphocytes # (Auto) 2.4 x10^3/uL (1.0-4.8) 2.8 x10^3/uL (1.0-4.8) Monocytes # (Auto) 0.8 x10^3/uL (0.0-1.1) 1.1 x10^3/uL (0.0-1.1) Eosinophils # (Auto) 0.3 x10^3/uL (0.0-0.7) 0.1 x10^3/uL (0.0-0.7) Basophils # (Auto) 0.1 x10^3/uL (0.0-0.2) 0.1 x10^3/uL (0.0-0.2) Bedside Urine HCG, Qualitative Hcg negative (Negative) Laboratory Tests Test 05/13/20 06:26 White Blood Count 13.1 x10^3/uL (4.0-11.0) Red Blood Count 3.91 x10^6/uL (3.50-5.40) Hemoglobin 11.1 g/dL (12.0-15.5) Hematocrit 33.7 % (36.0-47.0) Mean Corpuscular Volume 86 fL (79-100) Mean Corpuscular Hemoglobin 28 pg (25-35) Mean Corpuscular Hemoglobin Concent 33 g/dL (31-37) Red Cell Distribution Width 14.1 % (11.5-14.5) Platelet Count 287 x10^3/uL (140-400) Neutrophils (%) (Auto) 69 % (31-73) Lymphocytes (%) (Auto) 21 % (24-48) Monocytes (%) (Auto) 9 % (0-9) Eosinophils (%) (Auto) 1 % (0-3) Basophils (%) (Auto) 1 % (0-3) Neutrophils # (Auto) 9.0 x10^3/uL (1.8-7.7) Lymphocytes # (Auto) 2.8 x10^3/uL (1.0-4.8) Monocytes # (Auto) 1.1 x10^3/uL (0.0-1.1) Eosinophils # (Auto) 0.1 x10^3/uL (0.0-0.7) Basophils # (Auto) 0.1 x10^3/uL (0.0-0.2) Assessment/Plan A: POD#1 s/p LAVH P: D/c home. Justicifation of Admission Dx: Justifications for Admission: Justification of Admission Dx: Yes CATE YOUNG Jr, MD May 13, 2020 15:38
[2020-05-13] MEDS ORDERED: DOCU-109 PO (15:40)
[2020-05-13] MEDS ORDERED: OXYC1TAB15 PO (15:40)
[2020-05-13] MEDS ORDERED: GABA300C18 PO (15:40)
--- NOTE | 2020-05-13 15:41 | DISCH ---
DISCHARGE INSTRUCTIONS Condition on Discharge Condition on Discharge: Stable Activity After Discharge Activity Instructions for Disc: Activity as tolerated Lifting Instructions after Dis: No heavy lifting Driving Instructions after Dis: No driving for 2 weeks Diet after Discharge Diet after Discharge: Regular Contacting the DRElissa after DC Call your doctor for: Concerns you may have Follow-Up Follow up with: Dr. Gong in 2 weeks CATE GONG Jr, MD May 13, 2020 15:41
[2020-05-13 16:15] VITALS: BP 118/80
--- NOTE | 2020-05-13 17:54 | NUR ---
Patient left with her son around 1630. Discharge education given to the patient by this nurse and the doctor prior to discharge. Steri strips over incisions are CDI with one fully DEMOLITIONIST. Patient voiding appropriately post krause removal. No more complaints of dizziness were present at discharge with doctor aware of earlier episode. Vital signs stable. No IV present. Scripts given to patient for percocet, gabapentin, and colace. No concerns noted at discharge.
== END 2020-05-13 16:30 | disposition home or self-care (01) ==
LOC: SURG 05:46 → 3 NORTH 09:21
PROVIDERS: ADMIT Obstetrics & Gynecology; ATTEND Obstetrics & Gynecology
DX: N92.0 Excessive and frequent menstruation with regular cycle (principal); N94.6 Dysmenorrhea, unspecified; N94.10 Unspecified dyspareunia; Z79.899 Other long term (current) drug therapy
CPT/HCPCS: 36415; 58550; 81025; 85025; 86850; 86900; 86901; 87086; G0378; G0379; J0690; J0780; J1100; J1885; J2250; J2270; J2405; J2704; J2710; J3010; J3490; J7120; 88307

== ENCOUNTER 2020-05-19 16:19 | Emergency (ER) | payer MEDICAID ==
[~2020-05-19] VITALS: Ht 167.6 cm; Wt 100.0 kg
[~2020-05-19 16:19] MED LIST changes: +DOCU-109 PO; +GABA300C18 PO; +OXYC1TAB15 PO
--- NOTE | 2020-05-19 17:07 | RAD ---
INDICATION: Reason: n/v. post hysterectomy, constipation Pain LLQ / Spl. Instructions: / History: COMPARISON: March 30, 2020 IMPRESSION: Abdomen: 3 views of the chest and abdomen obtained. Cardiac silhouette is near the upper limits of no rmal in size. No definite focal airspace consolidation. Air scattered throughout the large and small bowel in a grossly nonobstructive pattern. Electronically signed by: Maciel Chun MD (05/19/2020 5:05 PM) [id number]
[2020-05-19 17:36] LABS: BILIRUBIN,URINE NEGATIVE (NEG); CLARITY,URINE CLEAR; COLOR,URINE YELLOW; NITRITE,URINE NEGATIVE (NEG); PH,URINE 5.5 (<5.0-8.0); PROTEIN,URINE NEGATIVE (NEG-TRACE); UROBILINOGEN,URINE 0.2 mg/dL (0.2 mg/dL)
[2020-05-19 17:42] LABS: BACTERIA,URINE FEW /HPF (0-FEW)
[2020-05-19 17:43] LABS: RBC,URINE 0 /HPF (0-2)
--- NOTE | 2020-05-19 17:43 | PHYS DOC ---
Past Medical History Past Medical History: Diverticulitis, Other Additional Past Medical Histor: ENDOMETRIOSIS Past Surgical History: , Hysterectomy, Tubal ligation Smoking Status: Current Every Day Smoker Alcohol Use: None General Adult EDM: Chief Complaint: NAUSEA/VOMITING/DIARRHA HPI: HPI: Patient is a 34 year old female who presents to the ED today stating she had a hysterectomy on last week, was released from the hospital on Saturday. She states she has not had a bowel movement since last week when she had a hysterectomy. She states currently she is having some difficulties voiding. Is also complaining of nausea and vomiting. Denies any fever. She st ates she was on oxycodone for pain as well as gabapentin. Denies any fever. Reports abdominal bloating/distention. Review of Systems: Review of Systems: Constitutional: Denies fever or chills. [] Eyes: Denies change in visual acuity. [] HENT: Denies nasal congestion or sore throat. [] Respiratory: Denies cough or shortness of breath. [] Cardiovascular: Denies chest pain or edema. [] GI: Reports abdominal distention, constipation, nausea vomiting. Bloody stools or diarrhea. [] : Reports difficulty voiding. Denies dysuria. [] Musculoskeletal: Denies back pain or joint pain. [] Integument: Denies rash. [] Neurologic: Denies headache, focal weakness or sensory changes. [] Psychiatric: Denies depression or anxiety. [] Heart Score: Risk Factors: Risk Factors: DM, Current or recent (<one month) smoker, HTN, HLP, family histo ry of CAD, obesity. Risk Scores: Score 0 - 3: 2.5% MACE over next 6 weeks - Discharge Home Score 4 - 6: 20.3% MACE over next 6 weeks - Admit for Clinical Observation Score 7 - 10: 72.7% MACE over next 6 weeks - Early Invasive Strategies Allergies: Allergies: Allergies Coded Allergies Type Severity Reaction Last Updated Verified No Known Drug Allergies 05/12/20 No Physical Exam: PE: Constitutional: Well developed, well nourished, no acute distress, non-toxic appearance. [] HENT: Normocephalic, atraumatic, bilateral external ears normal, oropharynx moist, no oral exudates, nose normal. [] Eyes: PERRLA, EOMI, conjunctiva normal, no discharge. [] Neck: Normal range of motion, no tenderness, supple, no stridor. [] Cardiovascular:Heart rate regular rhythm, no murmur [] Lungs & Thorax: Bilateral breath sounds clear to auscultation [] Abdomen: Abdominal incisions noted consistent with laparoscopic hysterectomy, no signs of infection on incision site. Bowel sounds normal, soft, no tenderness, no masses, no pulsatile masses. [] Skin: Warm, dry, no erythema, no rash. [] Back: No tenderness, no CVA tenderness. [] Extremities: No tenderness, no cyanosis, no clubbing, ROM intact, no edema. [] Neurologic: Alert and oriented X 3, normal motor function, normal sensory function, no focal deficits noted. [] Psychologic: Affect normal, judgement normal, mood normal. [] Current Patient Data: Vital Signs: Vital Signs Date Time Temp Pulse Resp B/P (MAP) Pulse Ox O2 Delivery O2 Flow Rate FiO2 05/19/20 16:31 98.5 96 20 137/85 (102) 98 Room Air 98.5 EKG: EKG: [] Radiology/Procedures: Radiology/Procedures: []PROCEDURE: ACUTE ABDOMEN SERIES INDICATION: Reason: n/v. post hysterectomy, constipation Pain LLQ / Spl. Instructions: / History: COMPARISON: March 30, 2020 IMPRESSION: Abdomen: 3 views of the chest and abdomen obtained. Cardiac silhouette is near the upper limits of normal in size. No definite focal airspace consolidation. Air scattered throughout the large and small bowel in a grossly nonobstructive pattern. Electronically signed by: Leny Vasquez MD (05/19/2020 5:05 PM) [id number] DICTATED and SIGNED BY: LENY VASQUEZ MD DATE: 05/19/20 [id number] 0 Course & Med Decision Making: Course & Med Decision Making Pertinent Labs and Imaging studies reviewed. (See chart for details) This is a 34-year-old female patient presenting to the ED today reporting she had a hysterectomy on last week and currently has not had a bowel movement for 1 week. Complaining of nausea and vomiting as well as difficulty voiding. She was on oxycodone for pain which she ran out. Patient was able to void in the ED. urine noted for small amount of leukocytes and many squamous cell epithelium. Acute abdominal series noted for air scattered around the colon. I spoke with Dr. Gong. D/c to home with constipation management protocol. He did get Dulcolax and mag citrate in the ED. Angelica Disclaimer: Angelica Disclaimer: This electronic medical record was generated, in whole or in part, using a voice recognition dictation system. Departure Departure Impression: Primary Impression: Constipation Qualified Codes: K59.03 - Drug induced constipation Additional Impression: Nausea and vomiting Qualified Codes: R11.2 - Nausea with vomiting, unspecified Disposition: 01 DC HOME SELF CARE/HOMELESS Condition: STABLE Referrals: NO PCP (PCP) CATE GONG Jr, MD follow up as scheduled Patient Instructions: Constipation, Adult Additional Instructions: You were evaluated in the emergency room and noted to be constipated. We encourage you to increase your dietary fiber intake and water intake. Avoid taking pain pills, they tend to make people constipated. Take a stool softener twice a day. Take MiraLAX once a day. Please take magnesium citrate 1 more bottle when you get home and any time you feel constipated. If you do not have a bowel movement by midnight perform an enema. Follow-up with your WINDOW SHADE ESTIMATOR as scheduled Scripts Polyethylene Glycol 3350 (MIRALAX) 17 Gm Powd.pack 1 PACKET PO DAILY PRN for CONSTIPATION, #30 PACKET 0 Refills dissolve in water Prov: CARA PATEL APRN 05/19/20 CARA PATEL APRN May 19, 2020 17:43
[2020-05-19] MEDS ORDERED: BISACODYL 5 MG TABLET.DR. PO STA (18:02)
[2020-05-19] MEDS ORDERED: MAGNESIUM CITRATE 296 ML SOLUTION. PO ONE (18:15)
[2020-05-19] MEDS ORDERED: ONDANSETRON ODT 4 MG TAB.RAPDIS. PO ONE (18:15)
[2020-05-19] MEDS ORDERED: POLY17PO29 PO (18:23)
[2020-05-19 18:28] VITALS: BP 121/67
== END 2020-05-19 18:49 | disposition home or self-care (01) ==
LOC: ER 16:19
DX: K59.03 Drug induced constipation (principal); R11.2 Nausea with vomiting, unspecified; R14.0 Abdominal distension (gaseous); F17.200 Nicotine dependence, unspecified, uncomplicated; Z90.710 Acquired absence of both cervix and uterus; Z98.51 Tubal ligation status; Z98.890 Other specified postprocedural states
CPT/HCPCS: 74022; 81001; 87086; 99284

== ENCOUNTER 2020-06-08 13:25 | Emergency (ER) | payer MEDICAID ==
[~2020-06-08] VITALS: Ht 167.6 cm; Wt 90.9 kg
[~2020-06-08 13:25] MED LIST changes: +POLY17PO29 PO
[2020-06-08] MEDS ORDERED: MORPHINE SULFATE 2 MG/ML VIAL. IV/SQ PRN (14:15)
[2020-06-08] MEDS ORDERED: ASPIRIN 325 MG TABLET PO ONE (14:15)
[2020-06-08 14:28] LABS: BARBITURATES NEG (NEG); BENZODIAZEPINES NEG (NEG); CANNABINOIDS NEG (NEG); COCAINE NEG (NEG); METHADONE NEG (NEG); OPIATES NEG (NEG); PHENCYCLIDINE NEG (NEG)
[2020-06-08 14:29] LABS: BILIRUBIN,URINE NEGATIVE (NEG); CLARITY,URINE CLEAR; COLOR,URINE YELLOW; NITRITE,URINE NEGATIVE (NEG); PH,URINE 6.5 (<5.0-8.0); PROTEIN,URINE NEGATIVE (NEG-TRACE); UROBILINOGEN,URINE 0.2 mg/dL (0.2 mg/dL)
[2020-06-08 14:35] LABS: AMPHETAMINE/METHAMPHETAMINE NEG (NEG)
[2020-06-08] MEDS: NITROGLYCERIN SUBLINGUAL 0.4 MG BOTTLE OF 25. SL PRN ×3 (14:37→14:55)
[2020-06-08 14:41] LABS: BASO # 0.1 x10^3/uL (0.0-0.2); BASO % 1 % (0-3); EOS # 0.4 x10^3/uL (0.0-0.7); EOS % 4 % (0-3); LYMPH # 2.9 x10^3/uL (1.0-4.8); LYMPH % 28 % (24-48); MEAN CORPUSCULAR HEMOGLOBIN 28 pg (25-35); MEAN CORPUSCULAR HGB CONC 33 g/dL (31-37); MEAN CORPUSCULAR VOLUME 85 fL (79-100); MONO % 10 % (0-9); NEUT % 58 % (31-73); PLATELET COUNT 297 x10^3/uL (140-400); RED BLOOD COUNT 4.58 x10^6/uL (3.50-5.40); RED CELL DISTRIBUTION WIDTH 14.3 % (11.5-14.5); WHITE BLOOD COUNT 10.5 x10^3/uL (4.0-11.0)
[2020-06-08 14:52] LABS: BACTERIA,URINE MODERATE /HPF (0-FEW)
[2020-06-08 14:52] LABS: CALCIUM 9.5 mg/dL (8.5-10.1); CREATININE 0.6 mg/dL (0.6-1.0); GFR 113.8; POTASSIUM 4.5 mmol/L (3.5-5.1)
--- NOTE | 2020-06-08 14:54 | RAD ---
PROCEDURE: XR ABDOMEN COMP ACUTE STUDY DATE: 06/08/2020 CLINICAL INDICATION / HISTORY: Reason: chest pain / Spl. Instructions: / History: . TECHNIQUE: Upright PA chest, supine and upright films of the abdomen were obtained. COMPARISON: Abdominal x-ray of 05/17/2020 FINDINGS: AP view the chest reveals the lungs to be clear. Cardiac and mediastinal silhouette are u nremarkable. No free air is identified below the diaphragms. Supine and decubitus views of the abdo men reveal no dilated loops of bowel or air-fluid levels. Moderate stool in the large bowel is incide ntally noted. No organomegaly is present. No destructive osseous lesions. IMPRESSION: No radiographic evidence for bowel obstruction. Moderate stool in the large bowel could r eflect constipation in the appropriate clinical context. Electronically signed by: Maine Choudhary MD (06/08/2020 2:51 PM) [id number]
[2020-06-08 14:58] LABS: ALBUMIN 3.4 g/dL (3.4-5.0); MAGNESIUM 1.9 mg/dL (1.8-2.4); TOTAL BILIRUBIN 0.1 mg/dL (0.2-1.0); TOTAL PROTEIN 6.9 g/dL (6.4-8.2)
[2020-06-08 15:23] LABS: PROTHROMBIN TIME PATIENT 12.8 SEC (11.7-14.0)
[2020-06-08 15:27] LABS: D-DIMER < 0.27 ug/mlFEU (0.00-0.50)
[2020-06-08] MEDS ORDERED: CEPH500T PO (16:04)
[2020-06-08] MEDS ORDERED: POLY17PO29 PO (16:04)
[2020-06-08] MEDS ORDERED: MAGN296S68 PO (16:04)
--- NOTE | 2020-06-08 16:04 | PHYS DOC ---
Past Medical History Past Medical History: Diverticulitis, Other Additional Past Medical Histor: ENDOMETRIOSIS Past Surgical History: , Hysterectomy, Tubal ligation Smoking Status: Current Every Day Smoker Alcohol Use: Occasionally General Adult EDM: Chief Complaint: CHEST PAIN HPI: HPI: Patient is a 34 year old female patient with no significant medical history presenting today complaining of 7 out of 10 generalized chest pain that began last night. Patient describes the pain as burning throughout her chest going to her neck and arms. She states she has been taking Tums for this pain with no relief. Denies any shortness of breath. Denies any fever coughing or congestion. States pain is worse after certain meals. Denies anything specifically relieving the pain. Review of Systems: Review of Systems: Constitutional: Denies fever or chills. [] Eyes: Denies change in visual acuity. [] HENT: Denies nasal congestion or sore throat. [] Respiratory: Denies cough or shortness of breath. [] Cardiovascular: Reports chest pain GI: Denies abdominal pain, nausea, vomiting, bloody stools or diarrhea. [] : Denies dysuria. [] Musculoskeletal: Denies back pain or joint pain. [] Integument: Denies rash. [] Neurologic: Denies headache, focal weakness or sensory changes. [] Psychiatric: Denies depression or anxiety. [] Heart Score: HEART Score for Chest Pain: HEART Score for Chest Pain Response (Comments) Value History Slighlty/Non-Suspicious 0 ECG Normal 0 Age < 45 0 Risk Factors No Risk Factors 0 Troponin < Normal Limit 0 Total 0 Risk Factors: Risk Factors: DM, Current or recent (<one month) smoker, HTN, HLP, family history of CAD, obesity. Risk Scores: Score 0 - 3: 2.5% MACE over next 6 weeks - Discharge Home Score 4 - 6: 20.3% MACE over next 6 weeks - Admit for Clinical Observation Score 7 - 10: 72.7% MACE over next 6 weeks - Early Invasive Strategies Current Medications: Current Medications Medications (Trade) Dose Ordered Sig/Leixi Start Time Stop Time Status Last Admin Dose Admin Aspirin (Mamta Aspirin) 325 mg 1X ONCE 06/08/20 14:15 06/08/20 14:16 DC 06/08/20 14:38 325 MG Morphine Sulfate (Morphine Sulfate) 2 mg PRN Q15MIN PRN 06/08/20 14:15 2/18/21 14:14 06/08/20 14:39 2 MG Nitroglycerin (Nitrostat) 0.4 mg PRN Q5MIN PRN 06/08/20 14:15 06/09/20 14:14 06/08/20 14:55 0.4 MG Allergies: Allergies: Allergies Coded Allergies Type Severity Reaction Last Updated Verified No Known Drug Allergies 05/12/20 No Physical Exam: PE: Constitutional: Well developed, well nourished, no acute distress, non-toxic appearance. [] HENT: Normocephalic, atraumatic, bilateral external ears normal, oropharynx moist, no oral exudates, nose normal. [] Eyes: PERRLA, EOMI, conjunctiva normal, no discharge. [] Neck: Normal range of motion, no tenderness, supple, no stridor. [] Cardiovascular:Heart rate regular rhythm, no murmur [] Lungs & Thorax: Bilateral breath sounds clear to auscultation [] Abdomen: Bowel sounds normal, soft, no tenderness, no masses, no pulsatile masses. [] Skin: Warm, dry, no erythema, no rash. [] Back: No tenderness, no CVA tenderness. [] Extremities: No tenderness, no cyanosis, no clubbing, ROM intact, no edema. [] Neurologic: Alert and oriented X 3, normal motor function, normal sensory function, no focal deficits noted. [] Psychologic: Affect normal, judgement normal, mood normal. [] Current Patient Data: Labs: Laboratory Tests Test 06/08/20 14:07 06/08/20 14:15 06/08/20 15:03 Urine Collection Type Unknown Urine Color Yellow Urine Clarity Clear Urine pH 6.5 (<5.0-8.0) Urine Specific Coleman 1.025 (1.000-1.030) Urine Protein Negative mg/dL (NEG-TRACE) Urine Glucose (UA) Negative mg/dL (NEG) Urine Ketones (Stick) Negative mg/dL (NEG) Urine Blood Small (NEG) Urine Nitrite Negative (NEG) Urine Bilirubin Negative (NEG) Urine Urobilinogen Dipstick 0.2 mg/dL (0.2 mg/dL) Urine Leukocyte Esterase Moderate (NEG) Urine RBC 1-2 /HPF (0-2) Urine WBC 1-4 /HPF (0-4) Urine Squamous Epithelial Cells Many /LPF Urine Bacteria Moderate /HPF (0-FEW) Urine Mucus Slight /LPF Urine Opiates Screen Neg (NEG) Urine Methadone Screen Neg (NEG) Urine Barbiturates Neg (NEG) Urine Phencyclidine Screen Neg (NEG) Urine Amphetamine/Methamphetamine Neg (NEG) Urine Benzodiazepines Screen Neg (NEG) Urine Cocaine Screen Neg (NEG) Urine Cannabinoids Screen Neg (NEG) Urine Ethyl Alcohol Neg (NEG) White Blood Count 10.5 x10^3/uL (4.0-11.0) Red Blood Count 4.58 x10^6/uL (3.50-5.40) Hemoglobin 13.0 g/dL (12.0-15.5) Hematocrit 39.0 % (36.0-47.0) Mean Corpuscular Volume 85 fL (79-100) Mean Corpuscular Hemoglobin 28 pg (25-35) Mean Corpuscular Hemoglobin Concent 33 g/dL (31-37) Red Cell Distribution Width 14.3 % (11.5-14.5) Platelet Count 297 x10^3/uL (140-400) Neutrophils (%) (Auto) 58 % (31-73) Lymphocytes (%) (Auto) 28 % (24-48) Monocytes (%) (Auto) 10 % (0-9) H Eosinophils (%) (Auto) 4 % (0-3) H Basophils (%) (Auto) 1 % (0-3) Neutrophils # (Auto) 6.0 x10^3/uL (1.8-7.7) Lymphocytes # (Auto) 2.9 x10^3/uL (1.0-4.8) Monocytes # (Auto) 1.0 x10^3/uL (0.0-1.1) Eosinophils # (Auto) 0.4 x10^3/uL (0.0-0.7) Basophils # (Auto) 0.1 x10^3/uL (0.0-0.2) Sodium Level 141 mmol/L (136-145) Potassium Level 4.5 mmol/L (3.5-5.1) Chloride Level 104 mmol/L (98-107) Carbon Dioxide Level 27 mmol/L (21-32) Anion Gap 10 (6-14) Blood Urea Nitrogen 10 mg/dL (7-20) Creatinine 0.6 mg/dL (0.6-1.0) Estimated GFR (Cockcroft-Gault) 113.8 BUN/Creatinine Ratio 17 (6-20) Glucose Level 81 mg/dL (70-99) Calcium Level 9.5 mg/dL (8.5-10.1) Magnesium Level 1.9 mg/dL (1.8-2.4) Total Bilirubin 0.1 mg/dL (0.2-1.0) L Aspartate Amino Transferase (AST) 16 U/L (15-37) Alanine Aminotransferase (ALT) 35 U/L (14-59) Alkaline Phosphatase 115 U/L (46-116) Troponin I Quantitative < 0.017 ng/mL (0.000-0.055) RY-Kmj-L-Type Natriuretic Peptide 17 pg/mL (0-124) Total Protein 6.9 g/dL (6.4-8.2) Albumin 3.4 g/dL (3.4-5.0) Albumin/Globulin Ratio 1.0 (1.0-1.7) Lipase 117 U/L (73-393) Prothrombin Time 12.8 SEC (11.7-14.0) Prothrombin Time INR 1.0 (0.8-1.1) D-Dimer (Ujdith) < 0.27 ug/mlFEU Laboratory Tests 06/08/20 14:15 Laboratory Tests 06/08/20 14:15 Vital Signs: Vital Signs Date Time Temp Pulse Resp B/P (MAP) Pulse Ox O2 Delivery O2 Flow Rate FiO2 06/08/20 14:55 97 134/59 06/08/20 14:39 18 99 Room Air 06/08/20 14:04 98.4 98.4 EKG: EK interpreted by Dr. Barajas sinus rhythm HR 98 no STEMI[] Radiology/Procedures: Radiology/Procedures: []PROCEDURE: ACUTE ABDOMEN SERIES PROCEDURE: XR ABDOMEN COMP ACUTE STUDY DATE: 06/08/2020 CLINICAL INDICATION / HISTORY: Reason: chest pain / Spl. Instructions: / History: . TECHNIQUE: Upright PA chest, supine and upright films of the abdomen were obtained. COMPARISON: Abdominal x-ray of 05/17/2020 FINDINGS: AP view the chest reveals the lungs to be clear. Cardiac and mediastinal silhouette are unremarkable. No free air is identified below the diaphragms. Supine and decubitus views of the abdomen reveal no dilated loops of bowel or air-fluid levels. Moderate stool in the large bowel is incidentally noted. No organomegaly is present. No destructive osseous lesions. IMPRESSION: No radiographic evidence for bowel obstruction. Moderate stool in the large bowel could reflect constipation in the appropriate clinical context. Electronically signed by: Tsering Choudhary MD (06/08/2020 2:51 PM) [id number] DICTATED and SIGNED BY: TSERING CHOUDHARY MD DATE: 06/08/20 [id number] 0 Course & Med Decision Making: Course & Med Decision Making Pertinent Labs and Imaging studies reviewed. (See chart for details) This a 34-year-old female patient presenting to the ED today complaining of chest pain, EKG is negative, troponin is normal, CBC CMP with no acute findings, acute abdominal series noted for moderate constipation. UA noted for large amount of leukocytes. Discharged on cephalexin. Discussed ways of managing con stipation including OTC medications as well as dietary changes. Angelica Disclaimer: Angelica Disclaimer: This electronic medical record was generated, in whole or in part, using a voice recognition dictation system. Departure Departure Impression: Primary Impression: Constipation Qualified Codes: K59.00 - Constipation, unspecified Additional Impressions: UTI (urinary tract infection) Qualified Codes: N39.0 - Urinary tract infection, site not specified Chest pain Qualified Codes: R07.9 - Chest pain, unspecified Disposition: 01 DC HOME SELF CARE/HOMELESS Condition: STABLE Referrals: NO PCP (PCP) follow up with your doctor in 1 week Patient Instructions: Chest Pain (Nonspecific), Constipation, Adult, Urinary Tract Infection Additional Instructions: You were evaluated in the emergency room and noted to be constipated. Please increase your dietary fiber intake as well as water intake. Please take MiraLAX every day. Please take magnesium citrate today. follow up with your doctor in1 week Scripts Polyethylene Glycol 3350 (MIRALAX) 17 Gm Powd.pack 1 PACKET PO DAILY for constipation, #30 PACKET 0 Refills dissolve in water Prov: CARA PATEL [employer] 06/08/20 Magnesium Citrate (MAGNESIUM CITRATE) 296 Ml Solution 296 ML PO ONCE, #296 ML Prov: JORDIACARA [employer] 06/08/20 Cephalexin (CEPHALEXIN) 500 Mg Tablet 1 TAB PO BID, #14 TAB Prov: CARA PATEL APRN 06/08/20 CARA PATEL APRN Jun 08, 2020 16:04
[2020-06-08 16:30] VITALS: BP 118/75
--- NOTE | 2020-06-09 03:08 | EKG ---
[facility] [address] [place] [address] Test Date: 2020-06-08 Test Time: 13:37:19 Pat Name: ZACH RUIZ Department: Room: Gender: F Book Editor: : 1985 Requested By: CARA PATEL Order Number: [id number] Reading MD: Measurements Intervals [place] Rate: 98 P: 15 GA: 152 QRS: 62 QRSD: 76 T: 33 QT: 316 QTc: 405 Interpretive Statements SINUS RHYTHM NORMAL ECG RI6.02 No previous ECG available for comparison
== END 2020-06-08 16:37 | disposition home or self-care (01) ==
LOC: ER 13:25
DX: N39.0 Urinary tract infection, site not specified (principal); K59.00 Constipation, unspecified; R07.89 Other chest pain; F17.200 Nicotine dependence, unspecified, uncomplicated; Z90.710 Acquired absence of both cervix and uterus; Z98.51 Tubal ligation status; Z98.890 Other specified postprocedural states
CPT/HCPCS: 36415; 74022; 80053; 80307; 81001; 83690; 83735; 83880; 84484; 85025; 85379; 85610; 87086; 93005; 96374; 99285; J2270

== ENCOUNTER 2020-07-01 13:27 | Emergency (ER) | payer MEDICAID ==
[~2020-07-01] VITALS: Ht 167.6 cm; Wt 102.7 kg
[~2020-07-01 13:27] MED LIST changes: +CEPH500T PO; +MAGN296S68 PO
[2020-07-01] MEDS: IV NORMAL SALINE 1000ML BAG 1,000 ML IV ONE (14:00)
[2020-07-01 14:13] LABS: BASO # 0.1 x10^3/uL (0.0-0.2); BASO % 1 % (0-3); EOS # 0.3 x10^3/uL (0.0-0.7); EOS % 3 % (0-3); HEMATOCRIT 40.5 % (36.0-47.0); HEMOGLOBIN 13.4 g/dL (12.0-15.5); LYMPH # 3.1 x10^3/uL (1.0-4.8); LYMPH % 28 % (24-48); MEAN CORPUSCULAR HEMOGLOBIN 28 pg (25-35); MEAN CORPUSCULAR HGB CONC 33 g/dL (31-37); MEAN CORPUSCULAR VOLUME 85 fL (79-100); MONO # 0.8 x10^3/uL (0.0-1.1); MONO % 7 % (0-9); NEUT # 6.9 x10^3/uL (1.8-7.7); NEUT % 62 % (31-73); PLATELET COUNT 302 x10^3/uL (140-400); RED BLOOD COUNT 4.76 x10^6/uL (3.50-5.40); RED CELL DISTRIBUTION WIDTH 14.7 % (11.5-14.5); WHITE BLOOD COUNT 11.2 x10^3/uL (4.0-11.0)
--- NOTE | 2020-07-01 14:13 | EKG ---
[facility] [address] [place] [address] Test Date: 2020-07-01 Test Time: 14:10:18 Pat Name: ZACH RUIZ Department: Room: Gender: F Center Lead Consultant: : 1985 Requested By: NANCY CULP Order Number: [id number] Reading MD: Measurements Intervals [place] Rate: 105 P: 12 HI: 150 QRS: 62 QRSD: 70 T: 33 QT: 304 QTc: 405 Interpretive Statements SINUS TACHYCARDIA OTHERWISE NORMAL ECG RI6.01 No previous ECG available for comparison
[2020-07-01] MEDS: ONDANSETRON PF 4 MG/2 ML VIAL. IV ONE (14:18)
[2020-07-01 14:22] LABS: CALCIUM 8.9 mg/dL (8.5-10.1); CREATININE 0.6 mg/dL (0.6-1.0); GFR 113.8; POTASSIUM 3.9 mmol/L (3.5-5.1)
[2020-07-01 14:30] LABS: ALBUMIN 3.5 g/dL (3.4-5.0); ALBUMIN/GLOBULIN RATIO 0.9 (1.0-1.7); MAGNESIUM 1.9 mg/dL (1.8-2.4); TOTAL BILIRUBIN 0.2 mg/dL (0.2-1.0); TOTAL PROTEIN 7.4 g/dL (6.4-8.2)
[2020-07-01 14:32] LABS: BILIRUBIN,URINE NEGATIVE (NEG); CLARITY,URINE CLEAR; COLOR,URINE YELLOW; NITRITE,URINE NEGATIVE (NEG); PH,URINE 5.5 (<5.0-8.0); PROTEIN,URINE NEGATIVE (NEG-TRACE); UROBILINOGEN,URINE 0.2 mg/dL (0.2 mg/dL)
[2020-07-01 14:38] LABS: CREATINE KINASE 42 U/L (26-192)
[2020-07-01] MEDS: IOHEXOL 350 MG/ML 100 ML VIAL. IV ONE (14:42)
[2020-07-01 14:44] LABS: BACTERIA,URINE FEW /HPF (0-FEW)
[2020-07-01] MEDS ORDERED: CONTRAST GIVEN. MC PRN (14:45)
--- NOTE | 2020-07-01 15:01 | RAD ---
EXAM: CT angiography of the chest, abdomen and pelvis with intravenous contrast. HISTORY: Chest pain. Lower abdominal pain. TECHNIQUE: Computed tomographic images of the chest, abdomen and pelvis were obtained following the a dministration of intravenous contrast according to angiography protocol. Multiplanar reformatting was performed and three dimensional maximum intensity projection images were obtained. *One or more of the following individualized dose reduction techniques were utilized for this examina tion: 1. Automated exposure control. 2. Adjustment of the mA and/or kV according to patient size. 3. Use of iterative reconstruction technique. COMPARISON: 03/30/2020. FINDINGS: Chest: Evaluation for distal pulmonary emboli is limited due to suboptimal contrast opacifi cation of the distal pulmonary arteries and mild respiratory motion. No convincing embolism is seen. The heart is normal in size. The aorta is normal in caliber. There is no aortic dissection. There are prominent bilateral hilar lymph nodes. These are nonspecific. There is no pneumothorax or pleural ef fusion. There is a 3 mm nodule along the right minor pleural fissure, likely a benign fissural lymph node. There is minimal posterior dependent and lower lobe atelectasis. There is no infiltrate. Abdomen and pelvis: No hepatic lesion is seen. The gallbladder, pancreas and stomach are unremarkable . There are bilateral adrenal nodules, measuring 2.4 cm on the right and 1.8 cm and 2.1 cm on the lef t. There is a splenule adjacent to an otherwise unremarkable spleen. The kidneys are unremarkable. Th ere is no appendicitis. There is no bowel obstruction. There is segmental colonic wall thickening lik leslie due to relative underdistention or the sequela of prior inflammation. There is no significant julian rounding pericolonic stranding to suggest acute colitis. There is sigmoid diverticulosis. The bladder is unremarkable. The uterus is absent. There is a 1.7 cm dominant follicle or follicular cyst within the right ovary. The right ovary is positioned adjacent to the appendix within the right lower quadr ant. There is also a 1.2 cm dominant left ovarian follicle. There is no suspicious osseous lesion. IMPRESSION: 1. No evidence of pulmonary embolism. Evaluation of the distal pulmonary arteries is suboptimal. Ther e is no alternative acute thoracic finding. 2. Colonic diverticulosis. 3. Mild colonic wall thickening likely due to underdistention or the sequela of prior inflammation. T here is no convincing acute colitis. 4. Bilateral adrenal nodules, the largest of which measures 2.4 cm on the right. The attenuation of t hese nodules is slightly greater than expected for adrenal adenomas. Adrenal protocol CT or MRI can b e performed to confirm benignity. 5. 1.7 cm right and 1.2 cm left physiologic ovarian follicles/follicular cysts. Electronically signed by: January Pepe MD (07/01/2020 2:59 PM) [id number]
[2020-07-01 16:00] VITALS: BP 122/75
[2020-07-01] MEDS: KETOROLAC 30 MG/ML VIAL. IV ONE (16:00)
[2020-07-01] MEDS: PROCHLORPERAZINE 10 MG/2 ML VIAL. IV ONE (16:02)
[2020-07-01] MEDS: methylPREDNISolone SOD SUCC PF 125 MG/2 ML VIAL. IV ONE (16:05)
--- NOTE | 2020-07-01 16:25 | ED.ADGEN ---
Past Medical History Past Medical History: Diverticulitis, Other Additional Past Medical Histor: ENDOMETRIOSIS Past Surgical History: , Hysterectomy, Tubal ligation Smoking Status: Current Every Day Smoker Alcohol Use: Occasionally General Adult EDM: Chief Complaint: ALLERGIC REACTION HPI: HPI: Patient is a 34 year old female who presents the emergency department with concerns of a possible allergic reaction to the Levaquin that she has been taking for the last 5 days after being diagnosed with a urinary tract infection. Patient states she has been suffering from urinary tract infections ever since she had a vaginal hysterectomy by Dr. Gong on May 122020. She states she has taken multiple rounds of antibiotics since that time. Patient reports that 2 weeks ago she was seen at this ER for dizziness with position changes and frequent headaches. She states at that time she also had chest pain but never passed out. Today she presents to the ER because she suffered 2 syncopal episodes this morning. Patient reports that she stood up to get off the couch and passed out twice this morning. She states that the loss of consciousness was very short. She denies any current nausea, vomiting, or diarrhea. Patient states that she has lower abdominal pain bilaterally, she denies any irregular vaginal discharge, dysuria, hematuria, increased urinary frequency, low back pain, fever, cough, numbness, tingling, vision change just, or ear pain. She reports that she has had some shortness of breath with palpitations and intermittent chest tightness. She also complains of ringing in her left ear. She currently rates her abdominal discomfort 8 out of 10 on the pain scale, she denies any alleviating factors, pain is worse with palpation. Review of Systems: Review of Systems: Complete ROS is negative unless otherwise noted in HPI. Current Medications: Current Medications Medications (Trade) Dose Ordered Sig/Lexii Start Time Stop Time Status Last Admin Dose Admin Info (CONTRAST GIVEN -- Rx MONITORING) 1 each PRN DAILY PRN 07/01/20 14:45 07/01/20 16:42 DC Iohexol (Omnipaque 350 Mg/ml) 100 ml 1X ONCE 07/01/20 14:45 07/01/20 14:46 DC 07/01/20 14:42 100 ML Ketorolac Tromethamine (Toradol 30mg Vial) 30 mg 1X ONCE 07/01/20 16:00 07/01/20 16:01 DC Methylprednisolone Sodium Succinate (SOLU-Medrol 125MG VIAL) 125 mg 1X ONCE 07/01/20 16:00 07/01/20 16:01 DC 07/01/20 16:05 125 MG Ondansetron HCl (Zofran) 4 mg 1X ONCE 07/01/20 14:00 07/01/20 14:01 DC 07/01/20 14:18 4 MG Prochlorperazine Edisylate (Compazine) 10 mg 1X ONCE 07/01/20 16:00 07/01/20 16:01 DC 07/01/20 16:02 10 MG Sodium Chloride 1,000 ml @ 1,000 mls/hr 1X ONCE 07/01/20 14:00 07/01/20 14:59 DC 07/01/20 14:00 1,000 MLS/HR Allergies: Allergies: Allergies Coded Allergies Type Severity Reaction Last Updated Verified No Known Drug Allergies 05/12/20 No Physical Exam: PE: See Above Constitutional: Well developed, well nourished, no acute distress, non-toxic appearance. [] HENT: Normocephalic, atraumatic, bilateral external ears normal, nose normal. [] Eyes: PERRLA, EOMI, conjunctiva normal, no discharge, no nystagmus. [] Neck: Normal range of motion, no stridor. [] Cardiovascular:Heart rate regular tachycardic rhythm, no edema Lungs & Thorax: Respirations even and unlabored, no retractions, no respiratory distress Abdomen: soft, bilateral lower abdominal tenderness to palpation, no rebound tenderness, no guarding, no palpable mass, no pulsatile masses Back: No CVA tenderness, nontender palpation Skin: Warm, dry, no erythema, no rash. [] Extremities: No cyanosis, ROM intact, no edema. [] Neurologic: Alert and oriented X 3, normal motor, normal sensory, no focal deficits noted. [] Psychologic: Affect normal, judgement normal, mood normal. [] Current Patient Data: Labs: Laboratory Tests Test 07/01/20 14:00 07/01/20 14:15 White Blood Count 11.2 x10^3/uL (4.0-11.0) H Red Blood Count 4.76 x10^6/uL (3.50-5.40) Hemoglobin 13.4 g/dL (12.0-15.5) Hematocrit 40.5 % (36.0-47.0) Mean Corpuscular Volume 85 fL (79-100) Mean Corpuscular Hemoglobin 28 pg (25-35) Mean Corpuscular Hemoglobin Concent 33 g/dL (31-37) Red Cell Distribution Width 14.7 % (11.5-14.5) H Platelet Count 302 x10^3/uL (140-400) Neutrophils (%) (Auto) 62 % (31-73) Lymphocytes (%) (Auto) 28 % (24-48) Monocytes (%) (Auto) 7 % (0-9) Eosinophils (%) (Auto) 3 % (0-3) Basophils (%) (Auto) 1 % (0-3) Neutrophils # (Auto) 6.9 x10^3/uL (1.8-7.7) Lymphocytes # (Auto) 3.1 x10^3/uL (1.0-4.8) Monocytes # (Auto) 0.8 x10^3/uL (0.0-1.1) Eosinophils # (Auto) 0.3 x10^3/uL (0.0-0.7) Basophils # (Auto) 0.1 x10^3/uL (0.0-0.2) Sodium Level 137 mmol/L (136-145) Potassium Level 3.9 mmol/L (3.5-5.1) Chloride Level 102 mmol/L (98-107) Carbon Dioxide Level 23 mmol/L (21-32) Anion Gap 12 (6-14) Blood Urea Nitrogen 11 mg/dL (7-20) Creatinine 0.6 mg/dL (0.6-1.0) Estimated GFR (Cockcroft-Gault) 113.8 BUN/Creatinine Ratio 18 (6-20) Glucose Level 105 mg/dL (70-99) H Calcium Level 8.9 mg/dL (8.5-10.1) Magnesium Level 1.9 mg/dL (1.8-2.4) Total Bilirubin 0.2 mg/dL (0.2-1.0) Aspartate Amino Transferase (AST) 11 U/L (15-37) L Alanine Aminotransferase (ALT) 29 U/L (14-59) Alkaline Phosphatase 103 U/L (46-116) Creatine Kinase 42 U/L (26-192) Creatine Kinase MB (Mass) < 0.5 ng/mL (0.0-3.6) Creatine Kinase MB Relative Index % (0-4) Troponin I Quantitative < 0.017 ng/mL (0.000-0.055) MP-Yka-A-Type Natriuretic Peptide 43 pg/mL (0-124) Total Protein 7.4 g/dL (6.4-8.2) Albumin 3.5 g/dL (3.4-5.0) Albumin/Globulin Ratio 0.9 (1.0-1.7) L Lipase 93 U/L (73-393) Urine Collection Type Void Urine Color Yellow Urine Clarity Clear Urine pH 5.5 (<5.0-8.0) Urine Specific [place] 1.025 (1.000-1.030) Urine Protein Negative mg/dL (NEG-TRACE) Urine Glucose (UA) Negative mg/dL (NEG) Urine Ketones (Stick) Negative mg/dL (NEG) Urine Blood Moderate (NEG) Urine Nitrite Negative (NEG) Urine Bilirubin Negative (NEG) Urine Urobilinogen Dipstick 0.2 mg/dL (0.2 mg/dL) Urine Leukocyte Esterase Negative (NEG) Urine RBC 3-5 /HPF (0-2) Urine WBC 1-4 /HPF (0-4) Urine Squamous Epithelial Cells Many /LPF Urine Bacteria Few /HPF (0-FEW) Urine Mucus Marked /LPF Laboratory Tests 07/01/20 14:00 Laboratory Tests 07/01/20 14:00 Vital Signs: Vital Signs Date Time Temp Pulse Resp B/P (MAP) Pulse Ox O2 Delivery O2 Flow Rate FiO2 07/01/20 16:00 90 122/75 (91) 99 Room Air 07/01/20 13:37 98.1 20 98.1 EKG: EK-sinus tachycardia, rate of 105, otherwise unremarkable, no STEMI read by Dr. Hinton [] Heart Score: C/O Chest Pain: Yes HEART Score for Chest Pain: HEART Score for Chest Pain Response (Comments) Value History Slighlty/Non-Suspicious 0 ECG Normal 0 Age < 45 0 Risk Factors 1 or 2 Risk Factors 1 Troponin < Normal Limit 0 Total 1 Risk Factors: Risk Factors: family history of CAD, obesity. Risk Scores: Score 0 - 3: 2.5% MACE over next 6 weeks - Discharge Home Score 4 - 6: 20.3% MACE over next 6 weeks - Admit for Clinical Observation Score 7 - 10: 72.7% MACE over next 6 weeks - Early Invasive Strategies Radiology/Procedures: Radiology/Procedures: PROCEDURE: CT ANGIO CHEST W ABD PEL W/ EXAM: CT angiography of the chest, abdomen and pelvis with intravenous contrast. HISTORY: Chest pain. Lower abdominal pain. TECHNIQUE: Computed tomographic images of the chest, abdomen and pelvis were obtained following the administration of intravenous contrast according to angiography protocol. Multiplanar reformatting was performed and three dimensional maximum intensity projection images were obtained. *One or more of the following individualized dose reduction techniques were utilized for this examination: 1. Automated exposure control. 2. Adjustment of the mA and/or kV according to patient size. 3. Use of iterative reconstruction technique. COMPARISON: 03/30/2020. FINDINGS: Chest: Evaluation for distal pulmonary emboli is limited due to suboptimal contrast opacification of the distal pulmonary arteries and mild respiratory motion. No convincing embolism is seen. The heart is normal in size. The aorta is normal in caliber. There is no aortic dissection. There are prominent bilateral hilar lymph nodes. These are nonspecific. There is no pneumothorax or pleural effusion. There is a 3 mm nodule along the right minor pleural fissure, likely a benign fissural lymph node. There is minimal posterior dependent and lower lobe atelectasis. There is no infiltrate. Abdomen and pelvis: No hepatic lesion is seen. The gallbladder, pancreas and stomach are unremarkable. There are bilateral adrenal nodules, measuring 2.4 cm on the right and 1.8 cm and 2.1 cm on the left. There is a splenule adjacent to an otherwise unremarkable spleen. The kidneys are unremarkable. There is no appendicitis. There is no bowel obstruction. There is segmental colonic wall thickening likely due to relative underdistention or the sequela of prior inflammation. There is no significant surrounding pericolonic stranding to suggest acute colitis. There is sigmoid diverticulosis. The bladder is unremarkable. The uterus is absent. There is a 1.7 cm dominant follicle or follicular cyst within the right ovary. The right ovary is positioned adjacent to the appendix within the right lower quadrant. There is also a 1.2 cm dominant left ovarian follicle. There is no suspicious osseous lesion. IMPRESSION: 1. No evidence of pulmonary embolism. Evaluation of the distal pulmonary arteries is suboptimal. There is no alternative acute thoracic finding. 2. Colonic diverticulosis. 3. Mild colonic wall thickening likely due to underdistention or the sequela of prior inflammation. There is no convincing acute colitis. 4. Bilateral adrenal nodules, the largest of which measures 2.4 cm on the right. The attenuation of these nodules is slightly greater than expected for adrenal adenomas. Adrenal protocol CT or MRI can be performed to confirm benignity. 5. 1.7 cm right and 1.2 cm left physiologic ovarian follicles/follicular cysts. Electronically signed by: January Pepe MD (07/01/2020 2:59 PM) [id number][] Course & Med Decision Making: Course & Med Decision Making Pertinent Labs and Imaging studies reviewed. (See chart for details) 34-year-old female presents emergency department after having 2 syncopal episodes this morning, she reported concerns of it being an adverse reaction to Levaquin that she was taking for urinary tract infection. [place] head CT rule was applied, was unnecessary to CT the patient's head for head trauma as does not meet any exclusion criteria CT of the patient's chest, abdomen, and pelvis did not reveal any acute findings, there is no evidence of a pulmonary embolism, or diverticulitis, there is no convincing evidence of colitis. CBC revealed elevated white blood cell count of 11.2 otherwise unremarkable; CMP revealed glucose of 100, otherwise unremarkable, patient's CK index and troponin were not elevated; UA showed few bacteria and 1-4 white blood cells, no nitrites I discussed the results with the patient I encouraged her to finish taking the Levaquin as prescribed, increase clear fluids. She was provided with head injury precautions and encouraged to follow them as instructed. Patient to take Tylenol ibuprofen as needed for pain, follow-up with her primary care doctor next week return to the ER if symptoms worsen. Patient verbalized an understanding of home care, medications, follow-up, and return to ED instructions and was in agreement with the plan of care. Angelica Disclaimer: Angelica Disclaimer: This electronic medical record was generated, in whole or in part, using a voice recognition dictation system. Departure Departure Impression: Primary Impression: Syncopal episodes Additional Impressions: Chest pain of uncertain etiology Palpitations Closed head injury with brief loss of consciousness Disposition: 01 DC HOME SELF CARE/HOMELESS Condition: STABLE Referrals: CURTIS MORRIS MD (PCP) Patient Instructions: Chest Pain (Nonspecific), [id number], Head Injury, Adult, [id number], Syncope, [id number] Additional Instructions: Tylenol or ibuprofen as needed for pain. Follow the head injury precautions provided. Increase clear fluids, change positions slowly. Follow up with your primary care doctor in 1-2 days. Return to the ER if symptoms worsen or fever de velops.. Problem Qualifiers Primary Impression: Syncopal episodes Syncope type: unspecified Qualified Codes: R55 - Syncope and collapse NACNY CULP APRN Jul 01, 2020 16:25
== END 2020-07-01 16:26 | disposition home or self-care (01) ==
LOC: ER 13:27
DX: S06.9X9A Unspecified intracranial injury with loss of consciousness of unspecified duration, initial encounter (principal); R55 Syncope and collapse; R07.89 Other chest pain; R00.2 Palpitations; F17.200 Nicotine dependence, unspecified, uncomplicated; R10.31 Right lower quadrant pain; R10.32 Left lower quadrant pain; H93.12 Tinnitus, left ear; K57.30 Diverticulosis of large intestine without perforation or abscess without bleeding; N83.02 Follicular cyst of left ovary; N83.01 Follicular cyst of right ovary; X58.XXXA Exposure to other specified factors, initial encounter; Y93.89 Activity, other specified; Y92.89 Other specified places as the place of occurrence of the external cause; Y99.8 Other external cause status
CPT/HCPCS: 36415; 71275; 74177; 80053; 81001; 82553; 83690; 83735; 83880; 84484; 85025; 93005; 96361; 96374; 96375; 99285; J0780; J2405; J2930; J7030; Q9967

== ENCOUNTER 2020-07-21 10:59 | Emergency (ER) | payer MEDICAID ==
[~2020-07-21] VITALS: Ht 167.6 cm; Wt 93.6 kg
--- NOTE | 2020-07-21 11:39 | PHYS DOC ---
Past Medical History Past Medical History: Diverticulitis, Other Additional Past Medical Histor: ENDOMETRIOSIS Past Surgical History: , Hysterectomy, Tubal ligation Smoking Status: Current Every Day Smoker Alcohol Use: Occasionally General Adult EDM: Chief Complaint: EARACHE/EAR PAIN HPI: HPI: Patient is a 34 year old female who presents with states for the last couple of months she has had left ear infections and otitis externa. She states the last couple days her ear has been draining, swollen and tender and now she is having left-sided facial swelling and fever of 101. She states she took Tylenol this morning. Patient states that she was trying to get into an ENT but no one will take her insurance. She states that she has an appointment with her primary care on July 29. She states that she did vomit this morning but has not vomited since. She denies any other symptoms. She denies nasal congestion, cough, shortness of breath, chest pain, abdominal pain, diarrhea, constipation, headache, dizziness. She rates her pain an left ear aching 8 out of 10. Review of Systems: Review of Systems: Constitutional: + fever or chills. [] Eyes: Denies change in visual acuity. [] HENT: Denies nasal congestion or sore throat. + Left ear pain [] Respiratory: Denies cough or shortness of breath. [] Cardiovascular: Denies chest pain or edema. [] GI: Denies abdominal pain, nausea. +vomiting x1, denies bloody stools or diarrhea. [] : Denies dysuria. [] Musculoskeletal: Denies back pain or joint pain. [] Integument: Denies rash. [] Neurologic: Denies headache, focal weakness or sensory changes. [] Endocrine: Denies polyuria or polydipsia. [] Lymphatic: Denies swollen glands. [] Psychiatric: Denies depression or anxiety. [] Heart Score: C/O Chest Pain: No Risk Factors: Risk Factors: DM, Current or recent (<one month) smoker, HTN, HLP, family history of CAD, obesity. Risk Scores: Score 0 - 3: 2.5% MACE over next 6 weeks - Discharge Home Score 4 - 6: 20.3% MACE over next 6 weeks - Admit for Clinical Observation Score 7 - 10: 72.7% MACE over next 6 weeks - Early Invasive Strategies Allergies: Allergies: Allergies Coded Allergies Type Severity Reaction Last Updated Verified No Known Drug Allergies 05/12/20 No Physical Exam: PE: Constitutional: Well developed, well nourished, no acute distress, non-toxic appearance. [] HENT: Normocephalic, atraumatic, bilateral external ears normal, oropharynx moist, no oral exudates, nose normal. Tenderness to posterior auricle but there is no swelling or redness. Sandoval externa present. Cannot see membrane. [] Eyes: PERRLA, EOMI, conjunctiva normal, no discharge. [] Neck: Normal range of motion, no tenderness, supple, no stridor. [] Cardiovascular:Heart rate regular rhythm, no murmur [] Lungs & Thorax: Bilateral breath sounds clear to auscultation [] Abdomen: Bowel sounds normal, soft, no tenderness, no masses, no pulsatile masses. [] Skin: Warm, dry, no erythema, no rash. [] Back: No tenderness, no CVA tenderness. [] Extremities: No tenderness, no cyanosis, no clubbing, ROM intact, no edema. [] Neurologic: Alert and oriented X 3, normal motor function, normal sensory function, no focal deficits noted. [] Psychologic: Affect normal, judgement normal, mood normal. [] EKG: EKG: [] Radiology/Procedures: Radiology/Procedures: [] Impression: [facility] [address] [place], [place] [id number] IMAGING REPORT Signed PATIENT: ZACH RUIZ ACCOUNT: [id number] : 1985 LOCATION: ER AGE: 34 SEX: F EXAM STATUS: REG ER ORD. PHYSICIAN: SARITA GOLDBERG APRN REASON: OTITIS EXTERNA WITH FEVER AND POSTERIOR EAR TENDERNESS-L SIDED PROCEDURE: CT HEAD WO CONTRAST CT HEAD/BRAIN WO Clinical indications: Reason: OTITIS EXTERNA WITH FEVER AND POSTERIOR EAR TENDERNESS-LEFT SIDED COMPARISON: None available. Technique: Noncontrast axial cross sectional scanning of the head was performed. PQRS compliance Statement One or more of the following individualized dose reduction techniques were utilized for this study: 1. Automated exposure control 2. Adjustment of the mA and/or kV according to patient size 3. Use of iterative reconstruction technique Findings: No acute intracranial hemorrhage or midline shift or mass-effect or hydrocephalus or extra-axial fluid collection is seen. No focal hypodense area or sulci effacement is seen to indicate an acute infarct or edema radiographically. No skull fracture or pneumocephalus is seen. There is opacification of the left mastoid sinus including the epitympanic recess around the middle ear ossicles. There is opacification of the left external auditory canal. There is opacification of a solitary posterior left ethmoid air cell. Frontal sinuses are aplastic. The maxillary sinuses are not completely seen in this study. IMPRESSION: No acute intracranial abnormality is seen. Left mastoiditis and otitis media. The opacification of the epitympanic recess could be related to cholesteatoma as well. There is opacification of the left external auditory canal. Electronically signed by: Kath Mohr MD (07/21/2020 12:33 PM) [id number] DICTATED and SIGNED BY: KATH MOHR MD DATE: 07/21/20 [id number] 0 Course & Med Decision Making: Course & Med Decision Making Pertinent Labs and Imaging studies reviewed. (See chart for details) See HPI. Alert and oriented x4. Abdomen is soft and nontender. I am unable to see the tympanic membrane as her ear canal is very swollen and tender. There is white to yellowish drainage in the ear. She does have trace swelling to the left side of her face also. There is no cellulitis. She is currently afebrile and her vital signs are within normal limits. There is no auricle swelling or redness posteriorly but there is tenderness. She states her fever yesterday was 103.4. This is all concerning for mastoiditis. CT will be done. CT does show mastoiditis. I have spoken to our hospitalist who states that because the CT does look so bad that the patient really does need an ENT involved. We do not have ENT currently here. I have started a IV and some Zosyn with a 1 L bag of normal saline. I have spoken to the patient about this and she states to try to see if she can get transferred to . I have spoken to ENT Dr Freed and he has accepted the patient to go to the ED. [] Angelica Disclaimer: Angelica Disclaimer: This electronic medical record was generated, in whole or in part, using a voice recognition dictation system. Departure Departure Impression: Primary Impression: Mastoiditis of left side Additional Impression: Otitis externa Qualified Codes: H60.312 - Diffuse otitis externa, left ear Disposition: 05 DC/TRF OTHER TYPE INSTITUTI Condition: STABLE Referrals: CURTIS MORRIS MD (PCP) SARITA GOLDBERG APRN Jul 21, 2020 11:39
--- NOTE | 2020-07-21 12:36 | RAD ---
CT HEAD/BRAIN WO Clinical indications: Reason: OTITIS EXTERNA WITH FEVER AND POSTERIOR EAR TENDERNESS-LEFT SIDED COMPARISON: None available. Technique: Noncontrast axial cross sectional scanning of the head was performed. PQRS compliance Statement One or more of the following individualized dose reduction techniques were utilized for this study: 1. Automated exposure control 2. Adjustment of the mA and/or kV according to patient size 3. Use of iterative reconstruction technique Findings: No acute intracranial hemorrhage or midline shift or mass-effect or hydrocephalus or extra- axial fluid collection is seen. No focal hypodense area or sulci effacement is seen to indicate an ac marvin infarct or edema radiographically. No skull fracture or pneumocephalus is seen. There is opacifi cation of the left mastoid sinus including the epitympanic recess around the middle ear ossicles. The re is opacification of the left external auditory canal. There is opacification of a solitary posteri or left ethmoid air cell. Frontal sinuses are aplastic. The maxillary sinuses are not completely seen in this study. IMPRESSION: No acute intracranial abnormality is seen. Left mastoiditis and otitis media. The opacification of the epitympanic recess could be related to ch olesteatoma as well. There is opacification of the left external auditory canal. Electronically signed by: Papo Mohr MD (07/21/2020 12:33 PM) [id number]
[2020-07-21] MEDS ORDERED: IV NORMAL SALINE 1000ML BAG 1,000 ML IV ONE (13:15)
[2020-07-21] MEDS ORDERED: PIPERACILLIN/TAZOBACTAM 3.375 GM in IV NORMAL SALINE 50ML 50 ML IV ONE (13:15)
[2020-07-21] MEDS ORDERED: fentaNYL PF VIAL 100 MCG/2 ML VIAL IVP ONE ×3 (13:45→18:00)
[2020-07-21 13:51] LABS: BASO # 0.1 x10^3/uL (0.0-0.2); BASO % 1 % (0-3); EOS # 0.3 x10^3/uL (0.0-0.7); EOS % 3 % (0-3); HEMATOCRIT 38.6 % (36.0-47.0); HEMOGLOBIN 12.9 g/dL (12.0-15.5); LYMPH # 2.5 x10^3/uL (1.0-4.8); LYMPH % 24 % (24-48); MEAN CORPUSCULAR HEMOGLOBIN 28 pg (25-35); MEAN CORPUSCULAR HGB CONC 33 g/dL (31-37); MEAN CORPUSCULAR VOLUME 85 fL (79-100); MONO # 0.9 x10^3/uL (0.0-1.1); MONO % 8 % (0-9); NEUT # 6.6 x10^3/uL (1.8-7.7); NEUT % 64 % (31-73); PLATELET COUNT 314 x10^3/uL (140-400); RED BLOOD COUNT 4.52 x10^6/uL (3.50-5.40); RED CELL DISTRIBUTION WIDTH 14.3 % (11.5-14.5); WHITE BLOOD COUNT 10.2 x10^3/uL (4.0-11.0)
[2020-07-21 14:01] LABS: CALCIUM 8.9 mg/dL (8.5-10.1); CREATININE 0.8 mg/dL (0.6-1.0); GFR 81.6; POTASSIUM 4.2 mmol/L (3.5-5.1)
[2020-07-21 14:15] LABS: ALBUMIN 3.2 g/dL (3.4-5.0); ALBUMIN/GLOBULIN RATIO 0.8 (1.0-1.7); TOTAL BILIRUBIN 0.1 mg/dL (0.2-1.0); TOTAL PROTEIN 7.3 g/dL (6.4-8.2)
[2020-07-21 17:04] VITALS: BP 140/63
== END 2020-07-21 17:30 | disposition short-term general hospital (02) ==
LOC: ER 10:59
DX: H70.92 Unspecified mastoiditis, left ear (principal); F17.200 Nicotine dependence, unspecified, uncomplicated
CPT/HCPCS: 36415; 70450; 80053; 83605; 85025; 87040; 96365; 96375; 96376; 99285; J2543; J3010; J7030

== ENCOUNTER 2020-08-31 13:45 | Emergency (ER) | payer MEDICAID ==
[~2020-08-31] VITALS: Ht 167.6 cm; Wt 104.0 kg
[2020-08-31 14:58] VITALS: BP 125/72
[2020-08-31] MEDS ORDERED: IBUP-1007 PO (15:08)
[2020-08-31] MEDS ORDERED: HYDR-2761 PO (15:08)
[2020-08-31] MEDS ORDERED: ORPH100T PO (15:08)
--- NOTE | 2020-08-31 15:09 | PHYS DOC ---
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 She states that she strained her back during this. She denies any numbness or tingling, loss of bowel or bladder, focal weakness, abdominal pain, urinary symptoms, focal bony spinal tenderness. She rates her pain an aching 8 out of 10. Review of Systems: Review of Systems: Constitutional: Denies fever or chills. [] Eyes: Denies change in visual acuity. [] HENT: Denies nasal congestion or sore throat. [] Respiratory: Denies cough or shortness of breath. [] Cardiovascular: Denies chest pain or edema. [] GI: Denies abdominal pain, nausea, vomiting, bloody stools or diarrhea. [] : Denies dysuria. [] Musculoskeletal: +Right mid to lower back pain or denies joint pain. [] Integument: Denies rash. [] Neurologic: Denies headache, focal weakness or sensory changes. [] Endocrine: Denies polyuria or polydipsia. [] Lymphatic: Denies swollen glands. [] Psychiatric: Denies depression or anxiety. [] Heart Score: C/O Chest Pain: No Risk Factors: Risk Factors: DM, Current or recent (<one month) smoker, HTN, HLP, family history of CAD, obesity. Risk Scores: Score 0 - 3: 2.5% MACE over next 6 weeks - Discharge Home Score 4 - 6: 20.3% MACE over next 6 weeks - Admit for Clinical Observation Score 7 - 10: 72.7% MACE over next 6 weeks - Early Invasive Strategies Allergies: Allergies: Allergies Coded Allergies Type Severity Reaction Last Updated Verified No Known Drug Allergies 05/12/20 No Physical Exam: PE: Constitutional: Well developed, well nourished, no acute distress, non-toxic appearance. [] HENT: Normocephalic, atraumatic, bilateral external ears normal, oropharynx vick [address], no oral exudates, nose normal. [] Eyes: PERRLA, EOMI, conjunctiva normal, no discharge. [] Neck: Normal range of motion, no tenderness, supple, no stridor. [] Cardiovascular:Heart rate regular rhythm, no murmur [] Lungs & Thorax: Bilateral breath sounds clear to auscultation [] Abdomen: Bowel sounds normal, soft, no tenderness, no masses, no pulsatile masses. [] Skin: Warm, dry, no erythema, no rash. [] Back: Mid to lower right paraspinal tenderness, no CVA tenderness. [] Extremities: No tenderness, no cyanosis, no clubbing, ROM intact, no edema. [] Neurologic: Alert and oriented X 3, normal motor function, normal sensory function, no focal deficits noted. [] Psychologic: Affect normal, judgement normal, mood normal. [] Current Patient Data: Vital Signs: Vital Signs Date Time Temp Pulse Resp B/P (MAP) Pulse Ox O2 Delivery O2 Flow Rate FiO2 08/31/20 14:58 98.0 79 16 125/72 (89) 100 98.0 EKG: EKG: [] Radiology/Procedures: Radiology/Procedures: [] Course & Med Decision Making: Course & Med Decision Making Pertinent Labs and Imaging studies reviewed. (See chart for details) See HPI. Alert and oriented x4. Ambulatory with steady gait. Speaks in full clear sentences. Patient has right-sided mid to lower back paraspinal tenderness with palpation. There is no bruising or signs of injury. Patient has a hard time going from sitting to standing or bending. No focal weakness. No focal bony spinal tenderness. Skin is pink warm and dry. [] Dragon Disclaimer: Dragon Disclaimer: This electronic medical record was generated, in whole or in part, using a voice recognition dictation system. Departure Departure Impression: Primary Impression: Back pain Qualified Codes: M54.40 - Lumbago with sciatica, unspecified side Disposition: HOME / SELF CARE / HOMELESS Condition: STABLE Referrals: CURTIS MORRIS MD (PCP) Patient Instructions: Low Back Strain with [facility] Additional Instructions: Follow-up with primary care provider if needed. Use a heating pad. Rest. Take medication as prescribed and with food. Never this medication will make you sleepy do not drive, work or drink any alcohol on top of this medication. Scripts Ibuprofen (IBUPROFEN) 600 Mg Tablet 600 MG PO PRN Q6HRS PRN for INFLAMMATION, #26 TAB Prov: SARITA GOLDBERG RADIOISOTOPE TECHNOLOGIST 08/31/20 Hydrocodone Bit/Acetaminophen (HYDROCODONE-APAP 5-325 ) 1 Tab Tablet 1 TAB PO PRN Q6HRS PRN for PAIN, #10 TAB 0 Refills Prov: SARITA GOLDBERG RADIOISOTOPE TECHNOLOGIST 08/31/20 Orphenadrine Citrate (ORPHENADRINE CITRATE) 100 Mg Tablet.er 1 TAB PO BID, #14 TAB Prov: SARITA GOLDBERG RADIOISOTOPE TECHNOLOGIST 08/31/20 SARITA GOLDBERG APRN August 31, 2020 15:08
== END 2020-08-31 16:09 | disposition home or self-care (01) ==
LOC: ER 13:45
DX: M54.40 Lumbago with sciatica, unspecified side (principal); M54.6 Pain in thoracic spine; F17.200 Nicotine dependence, unspecified, uncomplicated; Z98.51 Tubal ligation status
CPT/HCPCS: 99283

== ENCOUNTER → 2020-09-06 | Outpatient (CLI) | payer MEDICAID ==
[2020-08-31 14:58] VITALS: BP 125/72
[~2020-09-06] MED LIST changes: +HYDR-2761 PO; +IBUP-1007 PO; +ORPH100T PO
--- NOTE | 2020-09-06 08:11 | RAD ---
EXAM: Bilateral screening mammogram. HISTORY: 35-year-old female with a strong family history of breast cancer presents for baseline mammo graphy. TECHNIQUE: Full-field digital craniocaudal and mediolateral oblique views of both breasts are obtaine d for evaluation. Computer aided detection was applied. COMPARISON: None. This is a baseline mammogram. BREAST PARENCHYMAL DENSITY: Level B - Scattered fibroglandular densities. FINDINGS: There is no suspicious mass, microcalcification or region of architectural distortion. IMPRESSION: BI-RADS Category 2: Benign finding(s). RECOMMENDATION: Annual mammography is recommended. If your mammogram demonstrates that you have dense breast tissue, which could hide abnormalities, and if you have other risk factors for breast cancer that have been identified, you might benefit from s upplemental screening tests that may be suggested by your ordering physician. Dense breast tissue, i n and of itself, is a relatively common condition. This information is not provided to cause undue c oncern, but rather to raise your awareness and to promote discussion with your physician regarding th e presence of other risk factors, in addition to dense breast tissue. A report of your mammography re sults will be sent to you and your physician. You should contact your physician if you have any ques tions or concerns regarding this report. Mammography is a sensitive method for finding small breast cancers, but it does not detect them all a nd is not a substitute for careful clinical examination. A negative mammogram does not negate a clin ically suspicious finding and should not result in delay in biopsying a clinically suspicious abnorma lity. PQRS compliance statement - Patient information was entered into a reminder system with a target due date for the next mammogram. "Our facility is accredited by the [employer] Mammography Program." Electronically signed by: January Pepe MD (09/06/2020 8:08 AM) [id number]
== END ==
LOC: MAMMO 09:25
PROVIDERS: ATTEND Family Medicine
DX: Z12.31 Encounter for screening mammogram for malignant neoplasm of breast (principal)
CPT/HCPCS: 77067

== ENCOUNTER 2020-09-26 16:06 | Observation (INO) | payer MEDICAID ==
[~2020-09-26] VITALS: Ht 167.6 cm; Wt 107.6 kg
[2020-09-26] MEDS ORDERED: IV NORMAL SALINE 1000ML BAG 1,000 ML IV ONE (16:45)
[2020-09-26] MEDS ORDERED: FAMOTIDINE 20 MG/2 ML VIAL IVP ONE (17:00)
[2020-09-26] MEDS ORDERED: ASPIRIN CHEWABLE 81 MG TABLET. PO ONE (17:00)
[2020-09-26] MEDS ORDERED: ONDANSETRON PF 4 MG/2 ML VIAL. IVP ONE (17:00)
--- NOTE | 2020-09-26 17:04 | PHYS DOC ---
Past Medical History Past Medical History: Diverticulitis, Other Additional Past Medical Histor: ENDOMETRIOSIS Past Surgical History: , Hysterectomy, Tubal ligation Smoking Status: Current Every Day Smoker Alcohol Use: None General Adult EDM: Chief Complaint: NEAR SYNCOPE HPI: HPI: Patient is a 35 year old female who presents with states on Saturday was leaving work when she said that her "heart felt funny and like it jumped up into her throat that she became dizzy with blurred vision and lightheaded and passed out". Patient states that it happened again once today when she is having right-sided chest tightness and a burning type pain and vomited 4 times. She states she has had one episode of her heart feeling funny. She states that she called her "primary care doctor who seemed to not care." She rates her chest discomfort at a 7 out of 10. She also states that at times when this happens she will get bilateral to temporal throbbing headache. She states the headache is only there for couple seconds and then goes away. She also states that she has tingling in her right shoulder. She states that her father in his 30s from heart disease. She has a history of Metformin, smoking, endometriosis, diverticulitis, hysterectomy, and a tubal ligation. Denies abdominal pain, fever, neck pain or stiffness, back pain, diarrhea, cough, anxiety or depression, focal weakness. Review of Systems: Review of Systems: Constitutional: Denies fever or chills. [] Eyes: Denies change in visual acuity. [] HENT: Denies nasal congestion or sore throat. [] Respiratory: Denies cough or shortness of breath. [] Cardiovascular: + chest pain or edema. + Heart feels funny [] GI: Denies abdominal pain, +nausea, +vomiting, denies bloody stools or diarrhea. [] : Denies dysuria. [] Musculoskeletal: Denies back pain or joint pain. [] Integument: Denies rash. [] Neurologic: + headache, denies focal weakness or + right shoulder sensory changes.+ Dizziness. + Syncope [] Endocrine: Denies polyuria or polydipsia. [] Lymphatic: Denies swollen glands. [] Psychiatric: Denies depression or anxiety. [] Heart Score: C/O Chest Pain: Yes HEART Score for Chest Pain: HEART Score for Chest Pain Response (Comments) Value History Slighlty/Non-Suspicious 0 ECG Normal 0 Age < 45 0 Risk Factors >3 Risk Factors or Hx CAD 2 Troponin < Normal Limit 0 Total 2 Risk Factors: Risk Factors: DM, Current or recent (<one month) smoker, HTN, HLP, family history of CAD, obesity. Risk Scores: Score 0 - 3: 2.5% MACE over next 6 weeks - Discharge Home Score 4 - 6: 20.3% MACE over next 6 weeks - Admit for Clinical Observation Score 7 - 10: 72.7% MACE over next 6 weeks - Early Invasive Strategies Current Medications: Current Medications Medications (Trade) Dose Ordered Sig/Lexii Start Time Stop Time Status Last Admin Dose Admin Sodium Chloride 1,000 ml @ 1,000 mls/hr 1X ONCE 09/26/20 16:45 09/26/20 17:44 Allergies: Allergies: Allergies Coded Allergies Type Severity Reaction Last Updated Verified No Known Drug Allergies 05/12/20 No Physical Exam: PE: Constitutional: Well developed, well nourished, no acute distress, non-toxic appearance. [] HENT: Normocephalic, atraumatic, bilateral external ears normal, oropharynx moist, no oral exudates, nose normal. [] Eyes: PERRLA, EOMI, conjunctiva normal, no discharge. [] Neck: Normal range of motion, no tenderness, supple, no stridor. [] Cardiovascular:Heart rate regular rhythm, no murmur [] Lungs & Thorax: Bilateral breath sounds clear to auscultation [] Abdomen: Bowel sounds normal, soft, no tenderness, no masses, no pulsatile masses. [] Skin: Warm, dry, no erythema, no rash. [] Back: No tenderness, no CVA tenderness. [] Extremities: No tenderness, no cyanosis, no clubbing, ROM intact, no edema. [] Neurologic: Alert and oriented X 3, normal motor function, left shoulder less sensory function, no focal deficits noted. [] Psychologic: Affect normal, judgement normal, mood normal. [] EKG: EK and read by Dr. Servin is sinus rhythm and no STEMI Radiology/Procedures: Radiology/Procedures: [] Impression: [facility] [address] [place] [address] IMAGING REPORT Signed PATIENT: ZACH RUIZ ACCOUNT: [id number] : 1985 LOCATION: ER AGE: 35 SEX: F EXAM STATUS: REG ER ORD. PHYSICIAN: SARITA GOLDBERG APRN REASON: syncope PROCEDURE: PORTABLE CHEST 1V Exam: Chest one view INDICATION: Syncope TECHNIQUE: Frontal view of the chest Comparisons: None FINDINGS: The cardiomediastinal silhouette and pulmonary vessels are within normal limits. The lung and pleural spaces are clear. IMPRESSION: No acute cardiopulmonary process. Electronically signed by: Benny Banda MD (09/26/2020 5:17 PM) [facility] DICTATED and SIGNED BY: BENNY BANDA MD DATE: 09/26/20 [id number] 0 [facility] [address] [place] [address] IMAGING REPORT Signed PATIENT: ZACH RUIZ ACCOUNT: [id number] : 1985 LOCATION: ER AGE: 35 SEX: F EXAM STATUS: REG ER ORD. PHYSICIAN: SARITA GOLDBERG APRN REASON: headache, dizziness, syncope PROCEDURE: CT HEAD WO CONTRAST Exam: CT head INDICATION: Headache, dizziness, syncope TECHNIQUE: Sequential axial images through the head were obtained without the administration of IV contrast. Exposure: One or more of the following in the visualized dose reduction techniques were utilized for this examination: 1. Automated exposure control 2. Adjustment of the MA and/or KV according to patient size 3. Use of iterative of reconstructive technique Comparisons: None FINDINGS: No focal parenchymal lesion or hemorrhage is identified. There is no midline shift or sulcal effacement. No acute vascular territory infarction is identified. Avila-white distinction is preserved. The ventricular system is within normal limits without compression hydrocephalus. The basal cisterns are well maintained. The visualized portions of the paranasal sinuses and mastoid air cells are well- pneumatized. No acute fractures. IMPRESSION: No acute intracranial abnormality. Electronically signed by: Benny Banda MD (09/26/2020 5:32 PM) [facility] DICTATED and SIGNED BY: BENNY BANDA MD DATE: 09/26/20 [id number] 0 Course & Med Decision Making: Course & Med Decision Making Pertinent Labs and Imaging studies reviewed. (See chart for details) See HPI. Alert and oriented x4. Ambulatory with steady gait. Speaks in full clear sentences. Left shoulder has less sensation than the right shoulder. No nystagmus. Bilateral tympanic's are intact and white. Abdomen is soft and nontender. Afebrile. Moving all extremities equally. Denies hitting her head. No blood thinners. Chest x-ray and CT head showed no acute findings. The statics are normal. Blood work unremarkable. She will be admitted for observation. [] Dragon Disclaimer: Dragon Disclaimer: This electronic medical record was generated, in whole or in part, using a voice recognition dictation system. Departure Departure Impression: Primary Impression: Chest pain Qualified Codes: R07.9 - Chest pain, unspecified Additional Impressions: Syncopal episodes Qualified Codes: R55 - Syncope and collapse Dizziness Disposition: ADMITTED INPATIENT Admitting Physician: ALESIA Condition: STABLE Referrals: CURTIS MORRIS MD (PCP) SARITA GOLDBERG IMAGING SCHEDULER Sep 26, 2020 17:03
--- NOTE | 2020-09-26 17:20 | RAD ---
Exam: Chest one view INDICATION: Syncope TECHNIQUE: Frontal view of the chest Comparisons: None FINDINGS: The cardiomediastinal silhouette and pulmonary vessels are within normal limits. The lung and pleural spaces are clear. IMPRESSION: No acute cardiopulmonary process. Electronically signed by: Benny Moody MD (09/26/2020 5:17 PM) [facility]
--- NOTE | 2020-09-26 17:35 | RAD ---
Exam: CT head INDICATION: Headache, dizziness, syncope TECHNIQUE: Sequential axial images through the head were obtained without the administration of IV co ntrast. Exposure: One or more of the following in the visualized dose reduction techniques were utilized for this examination: 1. Automated exposure control 2. Adjustment of the MA and/or KV according to patient size 3. Use of iterative of reconstructive technique Comparisons: None FINDINGS: No focal parenchymal lesion or hemorrhage is identified. There is no midline shift or sulcal effaceme nt. No acute vascular territory infarction is identified. Avila-white distinction is preserved. The ventricular system is within normal limits without compression hydrocephalus. The basal cisterns are well maintained. The visualized portions of the paranasal sinuses and mastoid air cells are well-pneumatized. No acute fractures. IMPRESSION: No acute intracranial abnormality. Electronically signed by: Benny Moody MD (09/26/2020 5:32 PM) [facility]
[2020-09-26 17:36] LABS: BASO # 0.1 x10^3/uL (0.0-0.2); BASO % 1 % (0-3); EOS # 0.3 x10^3/uL (0.0-0.7); EOS % 2 % (0-3); HEMATOCRIT 39.3 % (36.0-47.0); HEMOGLOBIN 13.4 g/dL (12.0-15.5); LYMPH # 2.5 x10^3/uL (1.0-4.8); LYMPH % 21 % (24-48); MEAN CORPUSCULAR HEMOGLOBIN 29 pg (25-35); MEAN CORPUSCULAR HGB CONC 34 g/dL (31-37); MEAN CORPUSCULAR VOLUME 85 fL (79-100); MONO # 0.9 x10^3/uL (0.0-1.1); MONO % 8 % (0-9); NEUT # 8.2 x10^3/uL (1.8-7.7); NEUT % 69 % (31-73); PLATELET COUNT 318 x10^3/uL (140-400); RED BLOOD COUNT 4.63 x10^6/uL (3.50-5.40); RED CELL DISTRIBUTION WIDTH 14.2 % (11.5-14.5)
[2020-09-26 17:36] LABS: ISTAT BE VENOUS 0 mmol/L (0-3); ISTAT HCO3 VEN 25 mmol/L (24-28); ISTAT PCO2 VEN 41 mmHg (41-51); ISTAT PO2 VEN 106 mmHg (20-40); ISTAT SAT O2 VEN 98 %; ISTAT TCO2 VEN 26 mmol/L (21-32)
[2020-09-26 17:44] LABS: MAGNESIUM 2.2 mg/dL (1.8-2.4); PREG TEST PT QUAL NEGATIVE (NEG)
[2020-09-26 17:47] LABS: CALCIUM 9.8 mg/dL (8.5-10.1); CREATININE 0.7 mg/dL (0.6-1.0); GFR 94.7; POTASSIUM 4.1 mmol/L (3.5-5.1)
[2020-09-26 17:52] LABS: ALBUMIN 3.9 g/dL (3.4-5.0); ALBUMIN/GLOBULIN RATIO 1.1 (1.0-1.7); TOTAL BILIRUBIN 0.2 mg/dL (0.2-1.0); TOTAL PROTEIN 7.6 g/dL (6.4-8.2)
--- NOTE | 2020-09-26 18:11 | EKG ---
[facility] [address] [place] [address] Test Date: 2020-09-26 Test Time: 16:52:09 Pat Name: ZACH RUIZ Department: Room: Gender: F Landscape Contractor: : 1985 Requested By: SARITA GOLDBERG Order Number: [id number] Reading MD: Measurements Intervals [place] Rate: 93 P: 41 NE: 158 QRS: 45 QRSD: 74 T: 34 QT: 310 QTc: 388 Interpretive Statements SINUS RHYTHM OTHERWISE NORMAL ECG RI6.02 No previous ECG available for comparison
[2020-09-26 21:15] VITALS: BP 131/79
[2020-09-26] MEDS ORDERED: ACETAMINOPHEN 325 MG TABLET. PO PRN (21:15)
[2020-09-26] MEDS ORDERED: ZOLPIDEM 5 MG TABLET. PO PRN (21:15)
[2020-09-26] MEDS ORDERED: ONDANSETRON PF 4 MG/2 ML VIAL. IV PRN (21:15)
[2020-09-26 23:15] VITALS: BP 110/44
[2020-09-27] VITALS (8 sets, daily range): BP systolic 106–120; BP diastolic 45–66
[2020-09-27] MEDS ORDERED: DEXTROSE 50% 25 GM / 50ML DISP.SYRIN. IV PRN (01:00)
--- NOTE | 2020-09-27 02:53 | RAD ---
US DPLX CAROTID BILAT History: Reason: Recurrent syncope / Spl. Instructions: / History: COMPARISON: None Technique: Duplex sonography of the cervical portion of both carotid arteries was performed. Real-smiley e grayscale, color flow Doppler, and Doppler spectral waveform analysis is performed. PQRS Compliance Statement - Stenosis calculations for CT, MR and conventional angiography are based u jose measurement of the distal ICA diameter in accordance with the NASCET methodology. Stenosis calcu lations for carotid ultrasound studies are derived from validated velocity criteria which are known t o correlate with the NASCET methodology. Findings: Right side: Peak systolic flow velocity of the CCA is 86 cm/sec. Peak systolic flow velocity of the ICA is 93 cm/sec. The ICA/CCA ratio is 1.1. Peak end diastolic flow velocity of the ICA is 44 cm/sec. The peak systolic velocity of the ECA is 96 cm/sec. No significant plaque formation is identified. Left side: Peak systolic flow velocity of the CCA is 105 cm/sec. Peak systolic flow velocity of the ICA is 114 cm/sec. The ICA/CCA ratio is 1.08. Peak end diastolic flow velocity of the ICA is 50 cm/sec. Peak systolic flow velocity of the ECA is 87 cm/sec. No significant plaque formation is identified. Vertebral arteries: Bilateral vertebral arteries demonstrate antegrade flow. IMPRESSION: 1. No hemodynamically significant internal carotid artery stenosis. Electronically signed by: Brandon Ramirez DO (09/27/2020 2:50 AM) [facility]
--- NOTE | 2020-09-27 06:32 | NUR ---
The patient, ZACH RUIZ, 35 y/o, F admitted by JUN GARAY MD, was given written information regarding hospital policies, unit procedures and contact persons. Valuables were checked and documented. Pt is resting comfortably. Will continue to monitor
[2020-09-27 07:48] LABS: CALCIUM 8.9 mg/dL (8.5-10.1); CREATININE 0.7 mg/dL (0.6-1.0); GFR 94.7; POTASSIUM 4.6 mmol/L (3.5-5.1)
[2020-09-27] MEDS: INSULIN LISPRO 300 UNITS/3 ML VIAL. SQ SCH ×3 (08:00→17:00)
[2020-09-27] MEDS ORDERED: HYDROcodone/APAP 5/325MG 1 TAB TABLET PO PRN (09:00)
[2020-09-27] MEDS ORDERED: buPROPion 100 MG TABLET. PO SCH (09:00)
[2020-09-27] MEDS ORDERED: oxyCODONE/APAP 5/325 1 TAB TABLET PO PRN (09:00)
--- NOTE | 2020-09-27 09:26 | PDOC1 ---
History and Physical Date of Admission Date of Admission DATE: 09/27/20 TIME: 08:59 Identification/Chief Complaint Chief Complaint Chest pain Source Source: Chart review, Patient History of Present Illness History of Present Illness This is a 35-year-old female past medical history DM2, presents to the ED with complaints of right-sided chest tightness that began yesterday. She rates the severity of her symptoms as 7/10, with associated burning epigastric pain and vomiting x4. She has history of similar symptoms 4 days ago when she was leaving for work, stating that her heart "felt funny" with some associated dizzi ness, blurred vision, and syncopal episode. She also reports intermittent headaches with her symptoms. Patient has reportedly discussed her symptoms with her PCP who did not appear concerned. She does state that her father passed of coronary artery disease in his 30s. Labs on admission showed WBC 12.0 and troponin <0.017x2. Will admit patient for further medical management. Past Medical History Past Medical History DM2, diverticulosis, endometriosis Past Surgical History Past Surgical History: Tubal Ligation, Hysterectomy Family History Family History [place] Family History: Coronary Artery Disease Social History Smoke: <1 pack per day ALCOHOL: none Drugs: None Current Problem List Problem List Problems Medical Problems: (1) Chest pain Status: Acute (2) Dizziness Status: Acute (3) Syncopal episodes Status: Acute Current Medications Current Medications Current Medications Sodium Chloride 1,000 ml @ 1,000 mls/hr 1X ONCE IV Last administered on 09/26/20at 17:19; Start 09/26/20 at 16:45; Stop 09/26/20 at 17:44; Status DC Aspirin (Aspirin Chewable) 324 mg 1X ONCE PO Last administered on 09/26/20at 17:19; Start 09/26/20 at 17:00; Stop 09/26/20 at 17:06; Status DC Ondansetron HCl (Zofran) 4 mg 1X ONCE IVP Last administered on 09/26/20at 17:19; Start 09/26/20 at 17:00; Stop 09/26/20 at 17:06; Status DC Famotidine (Pepcid Vial) 20 mg 1X ONCE IVP Last administered on 09/26/20at 17:19; Start 09/26/20 at 17:00; Stop 09/26/20 at 17:06; Status DC Ondansetron HCl (Zofran) 4 mg PRN Q4HRS PRN IV NAUSEA/VOMITING 1ST CHOICE; Start 09/26/20 at 21:15 Zolpidem Tartrate (Ambien) 5 mg PRN QHS PRN PO INSOMNIA Last administered on 09/26/20at 22:43; Start 09/26/20 at 21:15 Acetaminophen (Tylenol) 650 mg PRN Q4HRS PRN PO TEMP OVER 100.4F OR MILD PAIN Last administered on 09/26/20at 21:43; Start 09/26/20 at 21:15 Bupropion HCl (Wellbutrin) 100 mg BID PO ; Start 09/27/20 at 09:00 Metformin HCl (Glucophage) 500 mg DAILYBFRSUP PO ; Start 09/27/20 at 17:00 Insulin Human Lispro (HumaLOG) 0-5 UNITS TIDWMEALS SQ ; Start 09/27/20 at 08:00 Dextrose (Dextrose 50%-Water Syringe) 12.5 gm PRN Q15MIN PRN IV SEE COMMENTS; Start 09/27/20 at 01:00 Active Scripts Active Ibuprofen 600 Mg Tablet 600 Mg PO PRN Q6HRS PRN Hydrocodone-Apap 5-325 (Hydrocodone Bit/Acetaminophen) 1 Tab Tablet 1 Tab PO PRN Q6HRS PRN Orphenadrine Citrate 100 Mg Tablet.er 1 Tab PO BID Miralax (Polyethylene Glycol 3350) 17 Gm Powd.pack 1 Packet PO DAILY dissolve in water Magnesium Citrate 296 Ml Solution 296 Ml PO ONCE Cephalexin 500 Mg Tablet 1 Tab PO BID Miralax (Polyethylene Glycol 3350) 17 Gm Powd.pack 1 Packet PO DAILY PRN dissolve in water Colace (Docusate Sodium) 100 Mg Capsule 100 Mg PO BID 30 Days Gabapentin 300 Mg Capsule 600 Mg PO Q8HRS Percocet 5-325 Mg Tablet (Oxycodone/Acetaminophen) 1 Each Tablet 2 Tab PO PRN Q6HRS PRN Reported No Known Medications Prior To Admisstion (Info) Each 1 Each MC 1X Allergies Allergies: Coded Allergies: No Known Drug Allergies (Unverified , 05/12/20) ROS Review of System GENERAL: No history of weight change, weakness or fevers. SKIN: No bruising, hair changes or rashes. EYES: No blurred, double or loss of vision. NOSE AND THROAT: No history of nosebleeds, hoarseness or sore throat. HEART: Chest pain. Syncope. Denies palpitations. LUNGS: Denies cough, hemoptysis, wheezing or shortness of breath. GASTROINTESTINAL: Nausea and vomiting. Denies abdominal pain. GENITOURINARY: Denies dysuria, frequency, urgency, hematuria. NEUROLOGIC: Denies history of numbness, tingling, tremor or weakness. PSYCHIATRIC: Denies anxiety, denies depression. ENDOCRINE: No history of heat or cold intolerance, polyuria or polydipsia. EXTREMITIES: Denies muscle weakness, joint pain, pain on walking or stiffness. Physical Exam Physical Exam General: Alert, Oriented X3, Cooperative, No acute distress HEENT: PERRLA, EOMI Lungs: Clear to auscultation, Normal air movement Heart: RRR, no murmurs Cardiovascular: S1, S2 Abdomen: Normal bowel sounds, Soft, No tenderness Extremities: No clubbing, No cyanosis Skin: No rashes, No significant lesion Neuro: Normal speech, Normal tone, Sensation intact Psych/Mental Status: Mental status NL, Mood NL Vitals Vitals Vital Signs Date Time Temp Pulse Resp B/P (MAP) Pulse Ox O2 Delivery O2 Flow Rate FiO2 09/27/20 07:00 97.8 74 18 111/50 (70) 97 Room Air 97.8 Labs Labs Laboratory Tests Test 09/26/20 17:21 09/26/20 17:34 09/27/20 06:25 09/27/20 07:58 White Blood Count 12.0 x10^3/uL (4.0-11.0) Red Blood Count 4.63 x10^6/uL (3.50-5.40) Hemoglobin 13.4 g/dL (12.0-15.5) Hematocrit 39.3 % (36.0-47.0) Mean Corpuscular Volume 85 fL (79-100) Mean Corpuscular Hemoglobin 29 pg (25-35) Mean Corpuscular Hemoglobin Concent 34 g/dL (31-37) Red Cell Distribution Width 14.2 % (11.5-14.5) Platelet Count 318 x10^3/uL (140-400) Neutrophils (%) (Auto) 69 % (31-73) Lymphocytes (%) (Auto) 21 % (24-48) Monocytes (%) (Auto) 8 % (0-9) Eosinophils (%) (Auto) 2 % (0-3) Basophils (%) (Auto) 1 % (0-3) Neutrophils # (Auto) 8.2 x10^3/uL (1.8-7.7) Lymphocytes # (Auto) 2.5 x10^3/uL (1.0-4.8) Monocytes # (Auto) 0.9 x10^3/uL (0.0-1.1) Eosinophils # (Auto) 0.3 x10^3/uL (0.0-0.7) Basophils # (Auto) 0.1 x10^3/uL (0.0-0.2) D-Dimer (Judith) < 0.27 ug/mlFEU Sodium Level 139 mmol/L (136-145) 142 mmol/L (136-145) Potassium Level 4.1 mmol/L (3.5-5.1) 4.6 mmol/L (3.5-5.1) Chloride Level 104 mmol/L (98-107) 107 mmol/L (98-107) Carbon Dioxide Level 23 mmol/L (21-32) 25 mmol/L (21-32) Anion Gap 12 (6-14) 10 (6-14) Blood Urea Nitrogen 12 mg/dL (7-20) 9 mg/dL (7-20) Creatinine 0.7 mg/dL (0.6-1.0) 0.7 mg/dL (0.6-1.0) Estimated GFR (Cockcroft-Gault) 94.7 94.7 BUN/Creatinine Ratio 17 (6-20) Glucose Level 108 mg/dL (70-99) 94 mg/dL (70-99) Calcium Level 9.8 mg/dL (8.5-10.1) 8.9 mg/dL (8.5-10.1) Magnesium Level 2.2 mg/dL (1.8-2.4) Total Bilirubin 0.2 mg/dL (0.2-1.0) Aspartate Amino Transf (AST/SGOT) 18 U/L (15-37) Alanine Aminotransferase (ALT/SGPT) 38 U/L (14-59) Alkaline Phosphatase 103 U/L (46-116) Troponin I Quantitative < 0.017 ng/mL (0.000-0.055) < 0.017 ng/mL (0.000-0.055) AH-Jdw-S-Type Natriuretic Peptide 28 pg/mL (0-124) Total Protein 7.6 g/dL (6.4-8.2) Albumin 3.9 g/dL (3.4-5.0) Albumin/Globulin Ratio 1.1 (1.0-1.7) Lipase 75 U/L (73-393) Thyroid Stimulating Hormone (TSH) 1.753 uIU/mL (0.358-3.74) Serum Test, Qualitative Negative (NEG) Bedside Venous pH 7.40 (7.32-7.42) Bedside Venous pCO2 41 mmHg (41-51) Bedside Venous pO2 106 mmHg (20-40) Venous Blood HCO3 25 mmol/L (24-28) POC Venous O2 Saturation (Chris) 98 % Bedside FiO2 21.0 Glucose (Fingerstick) 97 mg/dL (70-99) Laboratory Tests Test 09/26/20 17:21 09/26/20 17:34 09/27/20 06:25 09/27/20 07:58 White Blood Count 12.0 x10^3/uL (4.0-11.0) Red Blood Count 4.63 x10^6/uL (3.50-5.40) Hemoglobin 13.4 g/dL (12.0-15.5) Hematocrit 39.3 % (36.0-47.0) Mean Corpuscular Volume 85 fL (79-100) Mean Corpuscular Hemoglobin 29 pg (25-35) Mean Corpuscular Hemoglobin Concent 34 g/dL (31-37) Red Cell Distribution Width 14.2 % (11.5-14.5) Platelet Count 318 x10^3/uL (140-400) Neutrophils (%) (Auto) 69 % (31-73) Lymphocytes (%) (Auto) 21 % (24-48) Monocytes (%) (Auto) 8 % (0-9) Eosinophils (%) (Auto) 2 % (0-3) Basophils (%) (Auto) 1 % (0-3) Neutrophils # (Auto) 8.2 x10^3/uL (1.8-7.7) Lymphocytes # (Auto) 2.5 x10^3/uL (1.0-4.8) Monocytes # (Auto) 0.9 x10^3/uL (0.0-1.1) Eosinophils # (Auto) 0.3 x10^3/uL (0.0-0.7) Basophils # (Auto) 0.1 x10^3/uL (0.0-0.2) D-Dimer (Judith) < 0.27 ug/mlFEU Sodium Level 139 mmol/L (136-145) 142 mmol/L (136-145) Potassium Level 4.1 mmol/L (3.5-5.1) 4.6 mmol/L (3.5-5.1) Chloride Level 104 mmol/L (98-107) 107 mmol/L (98-107) Carbon Dioxide Level 23 mmol/L (21-32) 25 mmol/L (21-32) Anion Gap 12 (6-14) 10 (6-14) Blood Urea Nitrogen 12 mg/dL (7-20) 9 mg/dL (7-20) Creatinine 0.7 mg/dL (0.6-1.0) 0.7 mg/dL (0.6-1.0) Estimated GFR (Cockcroft-Gault) 94.7 94.7 BUN/Creatinine Ratio 17 (6-20) Glucose Level 108 mg/dL (70-99) 94 mg/dL (70-99) Calcium Level 9.8 mg/dL (8.5-10.1) 8.9 mg/dL (8.5-10.1) Magnesium Level 2.2 mg/dL (1.8-2.4) Total Bilirubin 0.2 mg/dL (0.2-1.0) Aspartate Amino Transf (AST/SGOT) 18 U/L (15-37) Alanine Aminotransferase (ALT/SGPT) 38 U/L (14-59) Alkaline Phosphatase 103 U/L (46-116) Troponin I Quantitative < 0.017 ng/mL (0.000-0.055) < 0.017 ng/mL (0.000-0.055) FA-Zmr-L-Type Natriuretic Peptide 28 pg/mL (0-124) Total Protein 7.6 g/dL (6.4-8.2) Albumin 3.9 g/dL (3.4-5.0) Albumin/Globulin Ratio 1.1 (1.0-1.7) Lipase 75 U/L (73-393) Thyroid Stimulating Hormone (TSH) 1.753 uIU/mL (0.358-3.74) Serum Test, Qualitative Negative (NEG) Bedside Venous pH 7.40 (7.32-7.42) Bedside Venous pCO2 41 mmHg (41-51) Bedside Venous pO2 106 mmHg (20-40) Venous Blood HCO3 25 mmol/L (24-28) POC Venous O2 Saturation (Chris) 98 % Bedside FiO2 21.0 Glucose (Fingerstick) 97 mg/dL (70-99) Images Images PORTABLE CHEST 1V Exam: Chest one view INDICATION: Syncope TECHNIQUE: Frontal view of the chest Comparisons: None FINDINGS: The cardiomediastinal silhouette and pulmonary vessels are within normal limits. The lung and pleural spaces are clear. IMPRESSION: No acute cardiopulmonary process. CT HEAD WO CONTRAST Exam: CT head INDICATION: Headache, dizziness, syncope TECHNIQUE: Sequential axial images through the head were obtained without the administration of IV contrast. Exposure: One or more of the following in the visualized dose reduction techniques were utilized for this examination: 1. Automated exposure control 2. Adjustment of the MA and/or KV according to patient size 3. Use of iterative of reconstructive technique Comparisons: None FINDINGS: No focal parenchymal lesion or hemorrhage is identified. There is no midline shift or sulcal effacement. No acute vascular territory infarction is identified. Avila-white distinction is preserved. The ventricular system is within normal limits without compression hydrocephalus. The basal cisterns are well maintained. The visualized portions of the paranasal sinuses and mastoid air cells are well-pneumatized. No acute fractures. IMPRESSION: No acute intracranial abnormality. DOPPLER CAROTID BILAT US DPLX CAROTID BILAT History: Reason: Recurrent syncope / Spl. Instructions: / History: COMPARISON: None Technique: Duplex sonography of the cervical portion of both carotid arteries was performed. Real-time grayscale, color flow Doppler, and Doppler spectral waveform analysis is performed. PQRS Compliance Statement - Stenosis calculations for CT, MR and conventional angiography are based upon measurement of the distal ICA diameter in accordance with the NASCET methodology. Stenosis calculations for carotid ultrasound studies are derived from validated velocity criteria which are known to correlate with the NASCET methodology. Findings: Right side: Peak systolic flow velocity of the CCA is 86 cm/sec. Peak systolic flow velocity of the ICA is 93 cm/sec. The ICA/CCA ratio is 1.1. Peak end diastolic flow velocity of the ICA is 44 cm/sec. The peak systolic velocity of the ECA is 96 cm/sec. No significant plaque formation is identified. Left side: Peak systolic flow velocity of the CCA is 105 cm/sec. Peak systolic flow velocity of the ICA is 114 cm/sec. The ICA/CCA ratio is 1.08. Peak end diastolic flow velocity of the ICA is 50 cm/sec. Peak systolic flow velocity of the ECA is 87 cm/sec. No significant plaque formation is identified. Vertebral arteries: Bilateral vertebral arteries demonstrate antegrade flow. IMPRESSION: 1. No hemodynamically significant internal carotid artery stenosis. VTE Prophylaxis Ordered VTE Prophylaxis Devices: Yes VTE Pharmacological Prophylaxi: No Assessment/Plan Assessment/Plan Chest pain Syncope DM2 Plan: Consultation placed to cardiology Troponins <0.017x2; will continue to trend. Echocardiogram pending Carotid Doppler showed no hemodynamically significant internal carotid artery stenosis. Resume home medications FEN - Cardiac diet PPX - SCDs FULL CODE Dispo - inpatient for above Justifications for Admission Other Justification PARISH MACE MD Sep 27, 2020 09:26
[2020-09-27] MEDS ORDERED: METF500T16 PO (09:40)
[2020-09-27] MEDS ORDERED: BUPR100T7 PO (09:41)
[2020-09-27] MEDS ORDERED: CYCLOBENZAPRINE 10 MG TABLET. PO SCH (10:00)
[2020-09-27] MEDS ORDERED: POLYETHYLENE GLYCOL 3350 17 GM PACKET. PO SCH (10:00)
--- NOTE | 2020-09-27 11:00 | PDOC2 ---
CLAY AVILA ENVIRONMENTAL MARKETING REPRESENTATIVE 09/27/20 1100: CARDIAC CONSULT DATE OF CONSULT Date of Consult DATE: 09/27/20 TIME: 10:45 REASON FOR CONSULT Reason for Consult: Chest pain, palpitations REFERRING PHYSICIAN Referring Physician: Becca SOURCE Source: Chart review, Patient HISTORY OF PRESENT ILLNESS HISTORY OF PRESENT ILLNESS This is a pleasant 35 yo female admitted for complains of chest pain and passing out. Reports that his occurred Shai and again yesterday. Reports that she felt palpitations on both times and felt diaphoretic and was having chest tightness. No significnat SOA but did have some nausea and vomiting and felt flushed. NO hx of CAD, VTE or any past arrhythmia. She was standing and the next thing she remembered was getting up on the floor. Presently she denies any symptoms. No injuries and no recent infection. 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 PAST MEDICAL HISTORY Cardiovascular: No pertinent hx Pulmonary: No pertinent hx CENTRAL NERVOUS SYSTEM: Other (No pertinent history) GI: No pertinent hx Heme/Onc: Anemia NOS Hepatobiliary: No pertinent hx Psych: No pertinent hx Musculoskeletal: Other (no pertinenthistory) Rheumatologic: No pertinent hx Infectious disease: No pertinent hx ENT: No pertinent hx Renal/: No pertinent hx Endocrine: Diabetes (pre) Dermatology: No pertinent hx PAST SURGICAL HISTORY Past Surgical History: (x3), Hysterectomy FAMILY HISTORY Family History: Coronary Artery Disease (father) SOCIAL HISTORY Smoke: No ALCOHOL: none Drugs: None Lives: with Family CURRENT MEDICATIONS CURRENT MEDICATIONS Current Medications Medications (Trade) Dose Ordered Sig/Lexii Route PRN Reason Start Time Stop Time Status Last Admin Dose Admin Sodium Chloride 1,000 ml @ 1,000 mls/hr 1X ONCE IV 09/26/20 16:45 09/26/20 17:44 DC 09/26/20 17:19 Aspirin (Aspirin Chewable) 324 mg 1X ONCE PO 09/26/20 17:00 09/26/20 17:06 DC 09/26/20 17:19 Ondansetron HCl (Zofran) 4 mg 1X ONCE IVP 09/26/20 17:00 09/26/20 17:06 DC 09/26/20 17:19 Famotidine (Pepcid Vial) 20 mg 1X ONCE IVP 09/26/20 17:00 09/26/20 17:06 DC 09/26/20 17:19 Zolpidem Tartrate (Ambien) 5 mg PRN QHS PRN PO INSOMNIA 09/26/20 21:15 09/26/20 22:43 Acetaminophen (Tylenol) 650 mg PRN Q4HRS PRN PO TEMP OVER 100.4F OR MILD PAIN 09/26/20 21:15 09/26/20 21:43 Bupropion HCl (Wellbutrin) 100 mg BID PO 09/27/20 09:00 09/27/20 09:41 ALLERGIES ALLERGIES: Coded Allergies: No Known Drug Allergies (Unverified , 05/12/20) ROS Review of System 14 point ROS evaluated with pertinent positives noted per HPI PHYSICAL EXAM General: Alert, Oriented X3, Cooperative, No acute distress HEENT: Atraumatic, Mucous membr. moist/pink Lungs: Clear to auscultation, Normal air movement Heart: Regular rate (SR), Normal S1, Normal S2, No murmurs Abdomen: Soft, No tenderness Extremities: No cyanosis, No edema Skin: No breakdown, No significant lesion Neuro: Normal speech, Sensation intact Psych/Mental Status: Mental status NL, Mood NL MUSCULOSKELETAL: Full range of motion without pain VITALS/I&O VITALS/I&O: Vital Signs Date Time Temp Pulse Resp B/P (MAP) Pulse Ox O2 Delivery O2 Flow Rate FiO2 09/27/20 07:00 97.8 74 18 111/50 (70) 97 Room Air 97.8 I & O 09/26/20 09/26/20 09/27/20 15:00 23:00 07:00 Intake Total 1000 ml 0 ml Balance 1000 ml 0 ml LABS Lab: Laboratory Tests Test 09/26/20 17:21 09/26/20 17:34 09/27/20 06:25 09/27/20 07:58 White Blood Count 12.0 x10^3/uL (4.0-11.0) H Red Blood Count 4.63 x10^6/uL (3.50-5.40) Hemoglobin 13.4 g/dL (12.0-15.5) Hematocrit 39.3 % (36.0-47.0) Mean Corpuscular Volume 85 fL (79-100) Mean Corpuscular Hemoglobin 29 pg (25-35) Mean Corpuscular Hemoglobin Concent 34 g/dL (31-37) Red Cell Distribution Width 14.2 % (11.5-14.5) Platelet Count 318 x10^3/uL (140-400) Neutrophils (%) (Auto) 69 % (31-73) Lymphocytes (%) (Auto) 21 % (24-48) L Monocytes (%) (Auto) 8 % (0-9) Eosinophils (%) (Auto) 2 % (0-3) Basophils (%) (Auto) 1 % (0-3) Neutrophils # (Auto) 8.2 x10^3/uL (1.8-7.7) H Lymphocytes # (Auto) 2.5 x10^3/uL (1.0-4.8) Monocytes # (Auto) 0.9 x10^3/uL (0.0-1.1) Eosinophils # (Auto) 0.3 x10^3/uL (0.0-0.7) Basophils # (Auto) 0.1 x10^3/uL (0.0-0.2) D-Dimer (Judith) < 0.27 ug/mlFEU Sodium Level 139 mmol/L (136-145) 142 mmol/L (136-145) Potassium Level 4.1 mmol/L (3.5-5.1) 4.6 mmol/L (3.5-5.1) Chloride Level 104 mmol/L (98-107) 107 mmol/L (98-107) Carbon Dioxide Level 23 mmol/L (21-32) 25 mmol/L (21-32) Anion Gap 12 (6-14) 10 (6-14) Blood Urea Nitrogen 12 mg/dL (7-20) 9 mg/dL (7-20) Creatinine 0.7 mg/dL (0.6-1.0) 0.7 mg/dL (0.6-1.0) Estimated GFR (Cockcroft-Gault) 94.7 94.7 BUN/Creatinine Ratio 17 (6-20) Glucose Level 108 mg/dL (70-99) H 94 mg/dL (70-99) Calcium Level 9.8 mg/dL (8.5-10.1) 8.9 mg/dL (8.5-10.1) Magnesium Level 2.2 mg/dL (1.8-2.4) Total Bilirubin 0.2 mg/dL (0.2-1.0) Aspartate Amino Transferase (AST) 18 U/L (15-37) Alanine Aminotransferase (ALT) 38 U/L (14-59) Alkaline Phosphatase 103 U/L (46-116) Troponin I Quantitative < 0.017 ng/mL (0.000-0.055) < 0.017 ng/mL (0.000-0.055) IZ-Twc-X-Type Natriuretic Peptide 28 pg/mL (0-124) Total Protein 7.6 g/dL (6.4-8.2) Albumin 3.9 g/dL (3.4-5.0) Albumin/Globulin Ratio 1.1 (1.0-1.7) Lipase 75 U/L (73-393) Thyroid Stimulating Hormone (TSH) 1.753 uIU/mL (0.358-3.74) Serum Test, Qualitative Negative (NEG) POC Venous pH 7.40 (7.32-7.42) POC Venous pCO2 41 mmHg (41-51) POC Venous pO2 106 mmHg (20-40) H Venous Blood HCO3 25 mmol/L (24-28) POC Venous O2 Saturation (Chris) 98 % POC FiO2 21.0 Glucose (Fingerstick) 97 mg/dL (70-99) Laboratory Tests 09/26/20 17:21 Laboratory Tests 09/26/20 17:21 09/27/20 06:25 ASSESSMENT/PLAN ASSESSMENT/PLAN 1. Chest pain: possibly from arrhythmia 2. Palpitations: possible SVT, none noted on tele 3. Nontraumatic fall with syncope: likely related to arrhythmia 4. Metabolic syndrome. 5. Obesity 6. Family hx of premature CAD Recommendations 1. MCOT prior to DC. Check orthostatic readings 2. TTE today. 3. Outpt stress test. ASA 4. avoid stimulants, will obtain UDS ALONZO STEELE MD 09/27/202114: CARDIAC CONSULT ASSESSMENT/PLAN ASSESSMENT/PLAN Patient seen and examined. Agree with ELECTRICAL DEVELOPMENT ENGINEER's assessment and plan. CP with atypical features WA ruled out 2D echo showed normal LVF without any WMA Plan outpatient ischemic evaluation and event monitor recording Thank you for your consultation CLAY AVILA APRN Sep 27, 2020 11:00 ALONZO STEELE MD Sep 27, 2020 21:15
[2020-09-27 11:08] LABS: BILIRUBIN,URINE NEGATIVE (NEG); CLARITY,URINE CLEAR; COLOR,URINE YELLOW; NITRITE,URINE NEGATIVE (NEG); PROTEIN,URINE NEGATIVE (NEG-TRACE); UROBILINOGEN,URINE 0.2 mg/dL (0.2 mg/dL)
[2020-09-27 11:15] LABS: BARBITURATES NEG (NEG); BENZODIAZEPINES NEG (NEG); CANNABINOIDS NEG (NEG); COCAINE NEG (NEG); METHADONE NEG (NEG); OPIATES NEG (NEG); PHENCYCLIDINE NEG (NEG)
[2020-09-27 11:16] LABS: BACTERIA,URINE 0 /HPF (0-FEW); RBC,URINE 0 /HPF (0-2); WBC,URINE 0 /HPF (0-4)
[2020-09-27 11:18] LABS: CHOLESTEROL/HDL RATIO 3.5
[2020-09-27 11:19] LABS: AMPHETAMINE/METHAMPHETAMINE NEG (NEG)
[2020-09-27] MEDS ORDERED: ASPIRIN ENTERIC COATED 81 MG TABLET.DR. PO SCH (12:00)
--- NOTE | 2020-09-27 12:04 | NUR ---
SS following for discharge planning. SS reviewed pt chart and discussed with pt RN. Pt is from home and is currently on room air. Cardiology consulted. SS will continue to follow for discharge planning .
[2020-09-27] MEDS ORDERED: GABAPENTIN 300 MG CAPSULE. PO SCH (14:00)
[2020-09-27] MEDS ORDERED: ASPI-886 PO (16:55)
[2020-09-27] MEDS ORDERED: metFORMIN 500 MG TABLET PO SCH (17:00)
--- NOTE | 2020-09-27 17:00 | PDOC3 ---
Discharge Summary Visit Information Date of Admission: Sep 27, 2020 Date of Discharge: Sep 27, 2020 Final Diagnosis Problems Medical Problems: (1) Chest pain Status: Acute (2) Dizziness Status: Acute (3) Syncopal episodes Status: Acute Brief Hospital Course Allergies Allergies Coded Allergies Type Severity Reaction Last Updated Verified No Known Drug Allergies 05/12/20 No Vital Signs Vital Signs Date Time Temp Pulse Resp B/P (MAP) Pulse Ox O2 Delivery O2 Flow Rate FiO2 09/27/20 12:01 82 119/63 (81) 09/27/20 11:00 98.1 18 98 Room Air 98.1 Lab Results Laboratory Tests Test 09/26/20 17:21 09/26/20 17:34 09/27/20 06:25 09/27/20 07:58 White Blood Count 12.0 x10^3/uL (4.0-11.0) Red Blood Count 4.63 x10^6/uL (3.50-5.40) Hemoglobin 13.4 g/dL (12.0-15.5) Hematocrit 39.3 % (36.0-47.0) Mean Corpuscular Volume 85 fL (79-100) Mean Corpuscular Hemoglobin 29 pg (25-35) Mean Corpuscular Hemoglobin Concent 34 g/dL (31-37) Red Cell Distribution Width 14.2 % (11.5-14.5) Platelet Count 318 x10^3/uL (140-400) Neutrophils (%) (Auto) 69 % (31-73) Lymphocytes (%) (Auto) 21 % (24-48) Monocytes (%) (Auto) 8 % (0-9) Eosinophils (%) (Auto) 2 % (0-3) Basophils (%) (Auto) 1 % (0-3) Neutrophils # (Auto) 8.2 x10^3/uL (1.8-7.7) Lymphocytes # (Auto) 2.5 x10^3/uL (1.0-4.8) Monocytes # (Auto) 0.9 x10^3/uL (0.0-1.1) Eosinophils # (Auto) 0.3 x10^3/uL (0.0-0.7) Basophils # (Auto) 0.1 x10^3/uL (0.0-0.2) D-Dimer (Judith) < 0.27 ug/mlFEU Sodium Level 139 mmol/L (136-145) 142 mmol/L (136-145) Potassium Level 4.1 mmol/L (3.5-5.1) 4.6 mmol/L (3.5-5.1) Chloride Level 104 mmol/L (98-107) 107 mmol/L (98-107) Carbon Dioxide Level 23 mmol/L (21-32) 25 mmol/L (21-32) Anion Gap 12 (6-14) 10 (6-14) Blood Urea Nitrogen 12 mg/dL (7-20) 9 mg/dL (7-20) Creatinine 0.7 mg/dL (0.6-1.0) 0.7 mg/dL (0.6-1.0) Estimated GFR (Cockcroft-Gault) 94.7 94.7 BUN/Creatinine Ratio 17 (6-20) Glucose Level 108 mg/dL (70-99) 94 mg/dL (70-99) Calcium Level 9.8 mg/dL (8.5-10.1) 8.9 mg/dL (8.5-10.1) Magnesium Level 2.2 mg/dL (1.8-2.4) Total Bilirubin 0.2 mg/dL (0.2-1.0) Aspartate Amino Transf (AST/SGOT) 18 U/L (15-37) Alanine Aminotransferase (ALT/SGPT) 38 U/L (14-59) Alkaline Phosphatase 103 U/L (46-116) Troponin I Quantitative < 0.017 ng/mL (0.000-0.055) < 0.017 ng/mL (0.000-0.055) IN-Zmi-T-Type Natriuretic Peptide 28 pg/mL (0-124) Total Protein 7.6 g/dL (6.4-8.2) Albumin 3.9 g/dL (3.4-5.0) Albumin/Globulin Ratio 1.1 (1.0-1.7) Lipase 75 U/L (73-393) Thyroid Stimulating Hormone (TSH) 1.753 uIU/mL (0.358-3.74) Serum Test, Qualitative Negative (NEG) Bedside Venous pH 7.40 (7.32-7.42) Bedside Venous pCO2 41 mmHg (41-51) Bedside Venous pO2 106 mmHg (20-40) Venous Blood HCO3 25 mmol/L (24-28) POC Venous O2 Saturation (Chris) 98 % Bedside FiO2 21.0 Triglycerides Level 132 mg/dL (0-150) Cholesterol Level 161 mg/dL (0-200) LDL Cholesterol, Calculated 89 mg/dL (0-100) VLDL Cholesterol, Calculated 26 mg/dL (0-40) Non-HDL Cholesterol Calculated 115 mg/dL (0-129) HDL Cholesterol 46 mg/dL (40-60) Cholesterol/HDL Ratio 3.5 Glucose (Fingerstick) 97 mg/dL (70-99) Test 09/27/20 11:00 09/27/20 11:50 09/27/20 12:21 Urine Collection Type Unknown Urine Color Yellow Urine Clarity Clear Urine pH 6.0 (<5.0-8.0) Urine Specific [place] 1.015 (1.000-1.030) Urine Protein Negative mg/dL (NEG-TRACE) Urine Glucose (UA) Negative mg/dL (NEG) Urine Ketones (Stick) Negative mg/dL (NEG) Urine Blood Negative (NEG) Urine Nitrite Negative (NEG) Urine Bilirubin Negative (NEG) Urine Urobilinogen Dipstick 0.2 mg/dL (0.2 mg/dL) Urine Leukocyte Esterase Negative (NEG) Urine RBC 0 /HPF (0-2) Urine WBC 0 /HPF (0-4) Urine Squamous Epithelial Cells Occ /LPF Urine Bacteria 0 /HPF (0-FEW) Urine Opiates Screen Neg (NEG) Urine Methadone Screen Neg (NEG) Urine Barbiturates Neg (NEG) Urine Phencyclidine Screen Neg (NEG) Urine Amphetamine/Methamphetamine Neg (NEG) Urine Benzodiazepines Screen Neg (NEG) Urine Cocaine Screen Neg (NEG) Urine Cannabinoids Screen Neg (NEG) Urine Ethyl Alcohol Neg (NEG) Troponin I Quantitative < 0.017 ng/mL (0.000-0.055) Glucose (Fingerstick) 146 mg/dL (70-99) Laboratory Tests Test 09/26/20 17:21 09/26/20 17:34 09/27/20 06:25 09/27/20 07:58 White Blood Count 12.0 x10^3/uL (4.0-11.0) Red Blood Count 4.63 x10^6/uL (3.50-5.40) Hemoglobin 13.4 g/dL (12.0-15.5) Hematocrit 39.3 % (36.0-47.0) Mean Corpuscular Volume 85 fL (79-100) Mean Corpuscular Hemoglobin 29 pg (25-35) Mean Corpuscular Hemoglobin Concent 34 g/dL (31-37) Red Cell Distribution Width 14.2 % (11.5-14.5) Platelet Count 318 x10^3/uL (140-400) Neutrophils (%) (Auto) 69 % (31-73) Lymphocytes (%) (Auto) 21 % (24-48) Monocytes (%) (Auto) 8 % (0-9) Eosinophils (%) (Auto) 2 % (0-3) Basophils (%) (Auto) 1 % (0-3) Neutrophils # (Auto) 8.2 x10^3/uL (1.8-7.7) Lymphocytes # (Auto) 2.5 x10^3/uL (1.0-4.8) Monocytes # (Auto) 0.9 x10^3/uL (0.0-1.1) Eosinophils # (Auto) 0.3 x10^3/uL (0.0-0.7) Basophils # (Auto) 0.1 x10^3/uL (0.0-0.2) D-Dimer (Judith) < 0.27 ug/mlFEU Sodium Level 139 mmol/L (136-145) 142 mmol/L (136-145) Potassium Level 4.1 mmol/L (3.5-5.1) 4.6 mmol/L (3.5-5.1) Chloride Level 104 mmol/L (98-107) 107 mmol/L (98-107) Carbon Dioxide Level 23 mmol/L (21-32) 25 mmol/L (21-32) Anion Gap 12 (6-14) 10 (6-14) Blood Urea Nitrogen 12 mg/dL (7-20) 9 mg/dL (7-20) Creatinine 0.7 mg/dL (0.6-1.0) 0.7 mg/dL (0.6-1.0) Estimated GFR (Cockcroft-Gault) 94.7 94.7 BUN/Creatinine Ratio 17 (6-20) Glucose Level 108 mg/dL (70-99) 94 mg/dL (70-99) Calcium Level 9.8 mg/dL (8.5-10.1) 8.9 mg/dL (8.5-10.1) Magnesium Level 2.2 mg/dL (1.8-2.4) Total Bilirubin 0.2 mg/dL (0.2-1.0) Aspartate Amino Transf (AST/SGOT) 18 U/L (15-37) Alanine Aminotransferase (ALT/SGPT) 38 U/L (14-59) Alkaline Phosphatase 103 U/L (46-116) Troponin I Quantitative < 0.017 ng/mL (0.000-0.055) < 0.017 ng/mL (0.000-0.055) YE-Oji-S-Type Natriuretic Peptide 28 pg/mL (0-124) Total Protein 7.6 g/dL (6.4-8.2) Albumin 3.9 g/dL (3.4-5.0) Albumin/Globulin Ratio 1.1 (1.0-1.7) Lipase 75 U/L (73-393) Thyroid Stimulating Hormone (TSH) 1.753 uIU/mL (0.358-3.74) Serum Test, Qualitative Negative (NEG) Bedside Venous pH 7.40 (7.32-7.42) Bedside Venous pCO2 41 mmHg (41-51) Bedside Venous pO2 106 mmHg (20-40) Venous Blood HCO3 25 mmol/L (24-28) POC Venous O2 Saturation (Chris) 98 % Bedside FiO2 21.0 Triglycerides Level 132 mg/dL (0-150) Cholesterol Level 161 mg/dL (0-200) LDL Cholesterol, Calculated 89 mg/dL (0-100) VLDL Cholesterol, Calculated 26 mg/dL (0-40) Non-HDL Cholesterol Calculated 115 mg/dL (0-129) HDL Cholesterol 46 mg/dL (40-60) Cholesterol/HDL Ratio 3.5 Glucose (Fingerstick) 97 mg/dL (70-99) Test 09/27/20 11:00 09/27/20 11:50 09/27/20 12:21 Urine Collection Type Unknown Urine Color Yellow Urine Clarity Clear Urine pH 6.0 (<5.0-8.0) Urine Specific [place] 1.015 (1.000-1.030) Urine Protein Negative mg/dL (NEG-TRACE) Urine Glucose (UA) Negative mg/dL (NEG) Urine Ketones (Stick) Negative mg/dL (NEG) Urine Blood Negative (NEG) Urine Nitrite Negative (NEG) Urine Bilirubin Negative (NEG) Urine Urobilinogen Dipstick 0.2 mg/dL (0.2 mg/dL) Urine Leukocyte Esterase Negative (NEG) Urine RBC 0 /HPF (0-2) Urine WBC 0 /HPF (0-4) Urine Squamous Epithelial Cells Occ /LPF Urine Bacteria 0 /HPF (0-FEW) Urine Opiates Screen Neg (NEG) Urine Methadone Screen Neg (NEG) Urine Barbiturates Neg (NEG) Urine Phencyclidine Screen Neg (NEG) Urine Amphetamine/Methamphetamine Neg (NEG) Urine Benzodiazepines Screen Neg (NEG) Urine Cocaine Screen Neg (NEG) Urine Cannabinoids Screen Neg (NEG) Urine Ethyl Alcohol Neg (NEG) Troponin I Quantitative < 0.017 ng/mL (0.000-0.055) Glucose (Fingerstick) 146 mg/dL (70-99) Brief Hospital Course Ms. Frank is a 35 old female who presented with chest pain and history of syncope x 2. She has significant family history of coronary artery disease. Troponins were trended and <0/017 x 3. Consultation was placed to cardiology. She had echocardiogram with normal findings. Orthostatic vitals were normal. She was recommended outpatient stress test in Holter monitor. Discharge Information Condition at Discharge: Stable Follow Up: Weeks Disposition/Orders: D/C to Home Scheduled Aspirin (Aspirin Ec) 81 Mg Tablet.dr, 81 MG PO DAILYWBKFT for CAD risk, #30 Ref 1 Prescribed by: PARISH MACE MD on 09/27/20 1655 Bupropion Hcl (Wellbutrin Sr) 100 Mg Tablet.er, 1 TAB PO DAILY for depression , #60 (Reported) Entered as Reported by: PILI ANDERSON on 09/27/20940 Last Action: New Order on 09/27/20940 by PILI ANDERSON Metformin Hcl (Metformin Hcl) 500 Mg Tablet, 500 MG PO DAILYWSUP for ANTI- DIABETIC, Ref 0 (Reported) Entered as Reported by: PILI ANDERSON on 09/27/20939 Last Action: New Order on 09/27/20939 by PILI ANDERSON Justicifation of Admission Dx: Justifications for Admission: Justification of Admission Dx: Yes PARIHS MACE MD Sep 27, 2020 17:00
--- NOTE | 2020-09-27 18:31 | NUR ---
Discharge Note: ZACH RUIZ Discharge instructions and discharge home medications reviewed with Patient and a copy given. All questions have been answered and understanding verbalized. The following instructions and handouts were given: Syncope Discontinued lines and drains: Peripheral IV intact. Patient discharged to Home or Self Care with Self via Ambulated
== END 2020-09-27 18:32 | disposition home or self-care (01) ==
LOC: ER 16:06 → 2 NORTH 18:30
PROVIDERS: ADMIT Internal Medicine; ATTEND Internal Medicine
DX: R07.89 Other chest pain (principal); R55 Syncope and collapse; R42 Dizziness and giddiness; E11.9 Type 2 diabetes mellitus without complications; E66.9 Obesity, unspecified; E88.81 Metabolic syndrome and other insulin resistance; D64.9 Anemia, unspecified; F17.210 Nicotine dependence, cigarettes, uncomplicated; R00.2 Palpitations; Z90.710 Acquired absence of both cervix and uterus; Z98.891 History of uterine scar from previous surgery; Z98.51 Tubal ligation status; Z79.82 Long term (current) use of aspirin; Z79.4 Long term (current) use of insulin; Z79.899 Other long term (current) drug therapy; Z68.38 Body mass index [BMI] 38.0-38.9, adult
CPT/HCPCS: 36415; 70450; 71045; 80048; 80053; 80061; 80307; 81001; 82803; 82962; 83690; 83735; 83880; 84443; 84484; 84703; 85025; 85379; 93005; 93308; 93321; 93880; 96361; 96374; 96375; 99285; G0378; J1815; J2405; J3490; J7030; G0379

== ENCOUNTER 2020-10-17 18:06 | Observation (INO) | payer MEDICAID ==
[~2020-10-17] VITALS: Ht 167.6 cm; Wt 105.7 kg
[~2020-10-17 18:06] MED LIST changes: +ASPI-886 PO; +BUPR100T7 PO; +METF500T16 PO
[2020-10-17 18:24] LABS: BASO # 0.1 x10^3/uL (0.0-0.2); BASO % 1 % (0-3); EOS # 0.2 x10^3/uL (0.0-0.7); EOS % 1 % (0-3); HEMATOCRIT 38.5 % (36.0-47.0); HEMOGLOBIN 12.8 g/dL (12.0-15.5); LYMPH # 2.9 x10^3/uL (1.0-4.8); LYMPH % 24 % (24-48); MEAN CORPUSCULAR HEMOGLOBIN 28 pg (25-35); MEAN CORPUSCULAR HGB CONC 33 g/dL (31-37); MEAN CORPUSCULAR VOLUME 84 fL (79-100); MONO # 0.9 x10^3/uL (0.0-1.1); MONO % 7 % (0-9); NEUT # 8.2 x10^3/uL (1.8-7.7); NEUT % 67 % (31-73); PLATELET COUNT 327 x10^3/uL (140-400); RED BLOOD COUNT 4.57 x10^6/uL (3.50-5.40); RED CELL DISTRIBUTION WIDTH 14.2 % (11.5-14.5); WHITE BLOOD COUNT 12.3 x10^3/uL (4.0-11.0)
--- NOTE | 2020-10-17 18:24 | PHYS DOC ---
Past Medical History Past Medical History: Diabetes-Type II, Diverticulitis, Other Additional Past Medical Histor: ENDOMETRIOSIS Past Surgical History: , Hysterectomy, Tubal ligation Smoking Status: Former Smoker Alcohol Use: None General Adult EDM: Chief Complaint: CHEST PAIN HPI: HPI: Patient is a 35 year old female who presented to ER due to substernal chest pain that radiated to her neck started this morning. Patient denies any cough or fever. Patient denies abdominal pain, no nausea vomiting. Patient denies any recent travel or operation. Patient was vaccinated for COVID-19 already. Patient says she had the same chest pain earlier this month, she was admitted to hospital, her cardiac enzymes were normal. Patient was seen by cardiology, recommended outpatient stress test. Patient was discharged home, had stress test done at an outpatient setting, she could not tolerate the treadmill test. Patient then had a nuclear stress test done, it showed some area of abnormality. Explosives Detonator recommended for outpatient cardiac catheterization procedure, scheduled on October 25. Patient was advised to come to ER if she start having chest pain again. Review of Systems: Review of Systems: Constitutional: Denies fever or chills. [] Eyes: Denies change in visual acuity. [] HENT: Denies nasal congestion or sore throat. [] Respiratory: Denies cough or shortness of breath. [] Cardiovascular: Positive for chest GI: Denies abdominal pain, nausea, vomiting, bloody stools or diarrhea. [] : Denies dysuria. [] Musculoskeletal: Denies back pain or joint pain. [] Integument: Denies rash. [] Neurologic: Denies headache, focal weakness or sensory changes. [] Endocrine: Denies polyuria or polydipsia. [] Lymphatic: Denies swollen glands. [] Psychiatric: Denies depression or anxiety. [] Heart Score: C/O Chest Pain: Yes HEART Score for Chest Pain: HEART Score for Chest Pain Response (Comments) Value History Moderately Suspicious 1 ECG Normal 0 Age < 45 0 Risk Factors 1 or 2 Risk Factors 1 Troponin < Normal Limit 0 Total 2 Risk Factors: Risk Factors: DM, Current or recent (<one month) smoker, HTN, HLP, family history of CAD, obesity. Risk Scores: Score 0 - 3: 2.5% MACE over next 6 weeks - Discharge Home Score 4 - 6: 20.3% MACE over next 6 weeks - Admit for Clinical Observation Score 7 - 10: 72.7% MACE over next 6 weeks - Early Invasive Strategies Allergies: Allergies: Allergies Coded Allergies Type Severity Reaction Last Updated Verified No Known Drug Allergies 05/12/20 No Physical Exam: PE: Constitutional: Well developed, well nourished, no acute distress, non-toxic appearance. [] HENT: Normocephalic, atraumatic, bilateral external ears normal, oropharynx moist, no oral exudates, nose normal. [] Eyes: PERRLA, EOMI, conjunctiva normal, no discharge. [] Neck: Normal range of motion, no tenderness, supple, no stridor. [] Cardiovascular:Heart rate regular rhythm, no murmur [] Lungs & Thorax: Bilateral breath sounds clear to auscultation [] Abdomen: Bowel sounds normal, soft, no tenderness, no masses, no pulsatile masses. [] Skin: Warm, dry, no erythema, no rash. [] Back: No tenderness, no CVA tenderness. [] Extremities: No tenderness, no cyanosis, no clubbing, ROM intact, no edema. [] Neurologic: Alert and oriented X 3, normal motor function, normal sensory function, no focal deficits noted. [] Psychologic: Affect normal, judgement normal, mood normal. [] Current Patient Data: Labs: Laboratory Tests Test 10/17/20 18:15 White Blood Count 12.3 x10^3/uL Red Blood Count 4.57 x10^6/uL Hemoglobin 12.8 g/dL Hematocrit 38.5 % Mean Corpuscular Volume 84 fL Mean Corpuscular Hemoglobin 28 pg Mean Corpuscular Hemoglobin Concent 33 g/dL Red Cell Distribution Width 14.2 % Platelet Count 327 x10^3/uL Neutrophils (%) (Auto) 67 % Lymphocytes (%) (Auto) 24 % Monocytes (%) (Auto) 7 % Eosinophils (%) (Auto) 1 % Basophils (%) (Auto) 1 % Neutrophils # (Auto) 8.2 x10^3/uL Lymphocytes # (Auto) 2.9 x10^3/uL Monocytes # (Auto) 0.9 x10^3/uL Eosinophils # (Auto) 0.2 x10^3/uL Basophils # (Auto) 0.1 x10^3/uL Sodium Level 140 mmol/L Potassium Level 3.9 mmol/L Chloride Level 104 mmol/L Carbon Dioxide Level 22 mmol/L Anion Gap 14 Blood Urea Nitrogen 7 mg/dL Creatinine 0.7 mg/dL Estimated GFR (Cockcroft-Gault) 94.7 BUN/Creatinine Ratio 10 Glucose Level 106 mg/dL Calcium Level 9.2 mg/dL Magnesium Level 1.8 mg/dL Total Bilirubin 0.3 mg/dL Aspartate Amino Transf (AST/SGOT) 13 U/L Alanine Aminotransferase (ALT/SGPT) 24 U/L Alkaline Phosphatase 108 U/L Troponin I Quantitative < 0.017 ng/mL HI-Zru-X-Type Natriuretic Peptide 30 pg/mL Total Protein 7.4 g/dL Albumin 4.0 g/dL Albumin/Globulin Ratio 1.2 Lipase 42 U/L Current Medications Medications (Trade) Dose Ordered Sig/Lexii Route PRN Reason Start Time Stop Time Status Last Admin Dose Admin Aspirin (Aspirin Chewable) 324 mg 1X ONCE PO 10/17/20 19:00 10/17/20 19:01 DC 10/17/20 18:35 Nitroglycerin (Nitrostat) 0.4 mg PRN Q5MIN PRN SL CHEST PAIN 10/17/20 18:30 10/17/20 18:34 Nitroglycerin (Nitrostat) 0.4 mg STK-MED ONCE SL 10/17/20 18:30 10/17/20 18:31 DC Iohexol (Omnipaque 350 Mg/ml) 100 ml 1X ONCE IV 10/17/20 19:00 10/17/20 19:01 DC Info (CONTRAST GIVEN -- Rx MONITORING) 1 each PRN DAILY PRN MC SEE COMMENTS 10/17/20 19:00 10/19/20 18:59 Ondansetron HCl (Zofran) 4 mg PRN Q8HRS PRN IV NAUSEA/VOMITING 10/17/20 19:00 10/18/20 18:59 Nitroglycerin (Nitrostat) 0.4 mg PRN Q5MIN PRN SL CHEST PAIN 10/17/20 19:00 10/18/20 18:59 EKG: EKG: EKG was done at 1814, heart rate of 95 bpm, normal sinus rhythm, no ST segment elevation. Normal axis. Radiology/Procedures: Radiology/Procedures: [facility] [address] [place] [address] IMAGING REPORT Signed PATIENT: ZACH RUIZ ACCOUNT: [id number] : 1985 LOCATION: ER AGE: 35 SEX: F EXAM STATUS: REG ER ORD. PHYSICIAN: BRITTNEY COLLINS DO REASON: chest pain, soa PROCEDURE: CT ANGIOGRAPHY CHEST Exam: CT of chest with contrast INDICATION: Chest pain, short of air TECHNIQUE: Sequential axial images through the chest obtained following the administration 100 mL of Omni 350 IV contrast. Sagittal and coronal reformatted images were reconstructed from the axial data and reviewed. 3-D reformatted images were reconstructed from the axial data and reviewed. Exposure: One or more of the following in the visualized dose reduction tech niques were utilized for this examination: 1. Automated exposure control 2. Adjustment of the MA and/or KV according to patient size 3. Use of iterative of reconstructive technique Comparisons: Chest x-ray same day FINDINGS: No enlarged mediastinal lymph nodes are identified. Heart size is normal. No pericardial effusion. Thoracic aorta has a normal course and caliber. Pulmonary artery is not enlarged. Airways are patent. No consolidation or pneumothorax. No suspicious lung nodules. No pleural effusion or thickening. Visualized upper abdomen is unremarkable. No suspicious osseous lesions or acute fractures. IMPRESSION: No pulmonary embolus identified within the main, lobar or segmental pulmonary arteries. Electronically signed by: Benny Banda MD (10/17/2020 7:41 PM) [facility] DICTATED and SIGNED BY: BENNY BANDA MD DATE: 10/17/20 [id number] 0 Course & Med Decision Making: Course & Med Decision Making Pertinent Labs and Imaging studies reviewed. (See chart for details) Patient is a 35-year-old female who presented to ER due to chest pain, she was scheduled for cardiac catheterization on October 25, work-up today includes lab EKG and CT scan of the chest did not show any acute problem. Patient will be admitted to hospital for further evaluation and treatment. Discussed with Dr. Vasquez who agreed admit the patient Angelica Disclaimer: Dragon Disclaimer: This electronic medical record was generated, in whole or in part, using a voice recognition dictation system. Departure Departure Impression: Primary Impression: Chest pain Disposition: ADMITTED INPATIENT Admitting Physician: ALESIA (Dr. Vasquez) Condition: STABLE Referrals: CURTIS MORRIS MD (PCP) BRITNTEY COLLINS DO Oct 17, 2020 18:24
[2020-10-17] MEDS ORDERED: NITROGLYCERIN SUBLINGUAL 0.4 MG BOTTLE OF 25. SL ONE (18:30)
[2020-10-17] MEDS ORDERED: NITROGLYCERIN SUBLINGUAL 0.4 MG BOTTLE OF 25. SL PRN ×2 (18:30→19:00)
--- NOTE | 2020-10-17 18:30 | EKG ---
[facility] [address] [place] [address] Test Date: 2020-10-17 Test Time: 18:13:15 Pat Name: ZACH RUIZ Department: Room: Gender: F [employer]uarant Crew Worker: : 1985 Requested By: BRITTNEY COLLINS Order Number: [id number] Reading MD: Measurements Intervals [place] Rate: 95 P: 58 UT: 168 QRS: 82 QRSD: 76 T: 79 QT: 332 QTc: 420 Interpretive Statements SINUS RHYTHM NORMAL ECG RI6.01 No previous ECG available for comparison
[2020-10-17 18:34] LABS: CALCIUM 9.2 mg/dL (8.5-10.1); CREATININE 0.7 mg/dL (0.6-1.0); GFR 94.7; POTASSIUM 3.9 mmol/L (3.5-5.1)
[2020-10-17 18:40] LABS: ALBUMIN/GLOBULIN RATIO 1.2 (1.0-1.7); MAGNESIUM 1.8 mg/dL (1.8-2.4); TOTAL BILIRUBIN 0.3 mg/dL (0.2-1.0); TOTAL PROTEIN 7.4 g/dL (6.4-8.2)
[2020-10-17] MEDS ORDERED: ASPIRIN CHEWABLE 81 MG TABLET. PO ONE (19:00)
[2020-10-17] MEDS ORDERED: CONTRAST GIVEN. MC PRN (19:00)
[2020-10-17] MEDS ORDERED: IOHEXOL 350 MG/ML 100 ML VIAL. IV ONE (19:00)
[2020-10-17] MEDS ORDERED: ONDANSETRON PF 4 MG/2 ML VIAL. IV PRN (19:00)
--- NOTE | 2020-10-17 19:04 | RAD ---
XR CHEST 1V History: Reason: chest pain / Spl. Instructions: / History: Comparison: September 26, 2020 Findings: No consolidation or pleural effusion. Normal heart size. No pneumothorax. Impression: 1. No acute cardiopulmonary process. Electronically signed by: Brandon Ramirez DO (10/17/2020 7:02 PM) [facility]
--- NOTE | 2020-10-17 19:44 | RAD ---
Exam: CT of chest with contrast INDICATION: Chest pain, short of air TECHNIQUE: Sequential axial images through the chest obtained following the administration 100 mL of Omni 350 IV contrast. Sagittal and coronal reformatted images were reconstructed from the axial data and reviewed. 3-D reformatted images were reconstructed from the axial data and reviewed. Exposure: One or more of the following in the visualized dose reduction techniques were utilized for this examination: 1. Automated exposure control 2. Adjustment of the MA and/or KV according to patient size 3. Use of iterative of reconstructive technique Comparisons: Chest x-ray same day FINDINGS: No enlarged mediastinal lymph nodes are identified. Heart size is normal. No pericardial effusion. Thoracic aorta has a normal course and caliber. Pulmon dung artery is not enlarged. Airways are patent. No consolidation or pneumothorax. No suspicious lung nodules. No pleural effusion or thickening. Visualized upper abdomen is unremarkable. No suspicious osseous lesions or acute fractures. IMPRESSION: No pulmonary embolus identified within the main, lobar or segmental pulmonary arteries. Electronically signed by: Benny Moody MD (10/17/2020 7:41 PM) [facility]
--- NOTE | 2020-10-17 20:34 | EKG ---
[facility] [address] [place] [address] Test Date: 2020-10-17 Test Time: 18:44:47 Pat Name: ZACH RUIZ Department: Room: Gender: F Order Builder: : 1985 Requested By: BRITTNEY COLLINS Order Number: [id number] Reading MD: Measurements Intervals [place] Rate: 89 P: 54 NC: 174 QRS: 84 QRSD: 74 T: 62 QT: 342 QTc: 422 Interpretive Statements SINUS RHYTHM NO SPECIFIC ECG ABNORMALITIES RI6.01 No previous ECG available for comparison
[2020-10-17] MEDS ORDERED: ASPI-886 PO (21:08)
[2020-10-17 22:01] VITALS: BP 151/97
--- NOTE | 2020-10-17 22:06 | PDOC1 ---
History and Physical Date of Service: DOS: DATE: 10/17/20 TIME: 22:02 Chief Complaint: Chief Complain: Chest pain. History of Present Illness: HPI: Patient is a 35-year-old female with past medical history of diabetes mellitus type 2, endometriosis and diverticulitis who presents with chest pain that started this morning that felt like heartburn and she had some associated shortness of breath. She also complained of some dizziness nausea. There was also pressure-like sensation and it did radiate to her right shoulder. She endorses some tingling in her both of her arms. Patient denies any recent travel or operation. Patient was vaccinated for COVID-19 already. Patient says she had the same chest pain earlier this month, she was admitted to hospital, her cardiac enzymes were normal. Patient was seen by cardiology, recommended outpatient stress test. Patient was discharged home, had stress test done at an outpatient setting, she could not tolerate the treadmill test. Patient then had a nuclear stress test done, it showed some area of abnormality. Consumer Lender recommended for outpatient cardiac catheterization procedure, scheduled on October 25. Patient was advised to come to ER if she start having chest pain again. Past Medical/Surgical History: PMH/PSH: Past Medical History: Diabetes-Type II, Diverticulitis, ENDOMETRIOSIS Past Surgical History: , Hysterectomy, Tubal ligation Allergies: Allergies: Coded Allergies: No Known Drug Allergies (Unverified , 05/12/20) Family History: Family History: Strong family history of CAD. Her father of a heart attack at the age of 36 and her mom who is still living has heart disease. Social History: Social History: Smoking Status: Former Smoker Alcohol Use: None Current Medications: Current Medications Current Medications Aspirin (Aspirin Chewable) 324 mg 1X ONCE PO Last administered on 10/17/20at 18:35; Start 10/17/20 at 19:00; Stop 10/17/20 at 19:01; Status DC Nitroglycerin (Nitrostat) 0.4 mg PRN Q5MIN PRN SL CHEST PAIN Last administered on 10/17/20at 18:34; Start 10/17/20 at 18:30 Nitroglycerin (Nitrostat) 0.4 mg STK-MED ONCE SL ; Start 10/17/20 at 18:30; Stop 10/17/20 at 18:31; Status DC Iohexol (Omnipaque 350 Mg/ml) 100 ml 1X ONCE IV ; Start 10/17/20 at 19:00; Stop 10/17/20 at 19:01; Status DC Info (CONTRAST GIVEN -- Rx MONITORING) 1 each PRN DAILY PRN MC SEE COMMENTS; Start 10/17/20 at 19:00; Stop 10/19/20 at 18:59 Ondansetron HCl (Zofran) 4 mg PRN Q8HRS PRN IV NAUSEA/VOMITING; Start 10/17/20 at 19:00; Stop 10/18/20 at 18:59 Nitroglycerin (Nitrostat) 0.4 mg PRN Q5MIN PRN SL CHEST PAIN; Start 10/17/20 at 19:00; Stop 10/18/20 at 18:59 Active Scripts Active Reported Aspirin Ec (Aspirin) 81 Mg Tablet.dr 1 Tab PO DAILYWSUP Wellbutrin Sr (Bupropion Hcl) 100 Mg Tablet.er 1 Tab PO DAILY Metformin Hcl 500 Mg Tablet 500 Mg PO DAILYWSUP ROS: Review of Systems Review of System REVIEW OF SYSTEMS: GENERAL: Denies weakness SKIN: No bruising, hair changes or rashes. EYES: No blurred, double or loss of vision. NOSE AND THROAT: No history of nosebleeds, hoarseness or sore throat. HEART: No history of palpitations, chest pain or shortness of breath on exertion. LUNGS: Denies cough, hemoptysis, wheezing or shortness of breath. GASTROINTESTINAL: Denies changes in appetite, nausea, vomiting, diarrhea or constipation. GENITOURINARY: No history of frequency, urgency, hesitancy or nocturia. NEUROLOGIC: Denies history of numbness, tingling, or tremor. PSYCHIATRIC: No history of panic, anxiety or depression. ENDOCRINE: No history of heat or cold intolerance, polyuria or polydipsia. EXTREMITIES: Denies joint pain, pain on walking or stiffness. Physical Exam: Vital Signs: Vital Signs Date Time Temp Pulse Resp B/P (MAP) Pulse Ox O2 Delivery O2 Flow Rate FiO2 10/17/20 20:10 Room Air 10/17/20 19:30 94 18 98 10/17/20 19:09 145/82 (103) 10/17/20 18:15 98.4 98.4 Physcial Exam: GEN: No apparent distress. Alert and oriented HEENT: Normal cephalic, atraumatic, external auditory canals are patent EYES: Extraocular muscles are intact, pupil are equally round and reactive to light and accommodation MUSCULOSKELETAL: Well developed , well nourished, good range of motion ENDOCRINE: No thyromegaly was palpated LYMPHATICS: No cervical chain or axillary nodes were noted HEMATOPOIETIC: No bruising NECK: Supple, no JVD, no thyromegaly was noted LUNGS: Clear to auscultation in all lung peterson without rhonchi or wheezing HEART: RRR, S!, S2 present. Peripheral pulses intact, no obvious murmurs noted ABDOMEN: Soft, nontender. Positive bowel sounds, no organomegaly, normal bowel sounds EXTREMITIES: Without clubbing, cyanosis, or edema. Pedal pulses intact. Negative Homans sign NEUROLOGIC: Normal speech and tone. A&O x 3, moves all extremities, no obvious focal deficits PSYCHIATRIC: Normal affect, normal mood. Stable SKIN: No ulcerations or rashes, good skin turgor, no jaundice VASCULAR: Good capillary refill, neurovascular bundle appears to be intact Labs: Labs: Laboratory Tests Test 10/17/20 18:15 White Blood Count 12.3 x10^3/uL (4.0-11.0) Red Blood Count 4.57 x10^6/uL (3.50-5.40) Hemoglobin 12.8 g/dL (12.0-15.5) Hematocrit 38.5 % (36.0-47.0) Mean Corpuscular Volume 84 fL (79-100) Mean Corpuscular Hemoglobin 28 pg (25-35) Mean Corpuscular Hemoglobin Concent 33 g/dL (31-37) Red Cell Distribution Width 14.2 % (11.5-14.5) Platelet Count 327 x10^3/uL (140-400) Neutrophils (%) (Auto) 67 % (31-73) Lymphocytes (%) (Auto) 24 % (24-48) Monocytes (%) (Auto) 7 % (0-9) Eosinophils (%) (Auto) 1 % (0-3) Basophils (%) (Auto) 1 % (0-3) Neutrophils # (Auto) 8.2 x10^3/uL (1.8-7.7) Lymphocytes # (Auto) 2.9 x10^3/uL (1.0-4.8) Monocytes # (Auto) 0.9 x10^3/uL (0.0-1.1) Eosinophils # (Auto) 0.2 x10^3/uL (0.0-0.7) Basophils # (Auto) 0.1 x10^3/uL (0.0-0.2) Sodium Level 140 mmol/L (136-145) Potassium Level 3.9 mmol/L (3.5-5.1) Chloride Level 104 mmol/L (98-107) Carbon Dioxide Level 22 mmol/L (21-32) Anion Gap 14 (6-14) Blood Urea Nitrogen 7 mg/dL (7-20) Creatinine 0.7 mg/dL (0.6-1.0) Estimated GFR (Cockcroft-Gault) 94.7 BUN/Creatinine Ratio 10 (6-20) Glucose Level 106 mg/dL (70-99) Calcium Level 9.2 mg/dL (8.5-10.1) Magnesium Level 1.8 mg/dL (1.8-2.4) Total Bilirubin 0.3 mg/dL (0.2-1.0) Aspartate Amino Transf (AST/SGOT) 13 U/L (15-37) Alanine Aminotransferase (ALT/SGPT) 24 U/L (14-59) Alkaline Phosphatase 108 U/L (46-116) Troponin I Quantitative < 0.017 ng/mL (0.000-0.055) QB-Uyj-M-Type Natriuretic Peptide 30 pg/mL (0-124) Total Protein 7.4 g/dL (6.4-8.2) Albumin 4.0 g/dL (3.4-5.0) Albumin/Globulin Ratio 1.2 (1.0-1.7) Lipase 42 U/L (73-393) Laboratory Tests Test 10/17/20 18:15 White Blood Count 12.3 x10^3/uL (4.0-11.0) Red Blood Count 4.57 x10^6/uL (3.50-5.40) Hemoglobin 12.8 g/dL (12.0-15.5) Hematocrit 38.5 % (36.0-47.0) Mean Corpuscular Volume 84 fL (79-100) Mean Corpuscular Hemoglobin 28 pg (25-35) Mean Corpuscular Hemoglobin Concent 33 g/dL (31-37) Red Cell Distribution Width 14.2 % (11.5-14.5) Platelet Count 327 x10^3/uL (140-400) Neutrophils (%) (Auto) 67 % (31-73) Lymphocytes (%) (Auto) 24 % (24-48) Monocytes (%) (Auto) 7 % (0-9) Eosinophils (%) (Auto) 1 % (0-3) Basophils (%) (Auto) 1 % (0-3) Neutrophils # (Auto) 8.2 x10^3/uL (1.8-7.7) Lymphocytes # (Auto) 2.9 x10^3/uL (1.0-4.8) Monocytes # (Auto) 0.9 x10^3/uL (0.0-1.1) Eosinophils # (Auto) 0.2 x10^3/uL (0.0-0.7) Basophils # (Auto) 0.1 x10^3/uL (0.0-0.2) Sodium Level 140 mmol/L (136-145) Potassium Level 3.9 mmol/L (3.5-5.1) Chloride Level 104 mmol/L (98-107) Carbon Dioxide Level 22 mmol/L (21-32) Anion Gap 14 (6-14) Blood Urea Nitrogen 7 mg/dL (7-20) Creatinine 0.7 mg/dL (0.6-1.0) Estimated GFR (Cockcroft-Gault) 94.7 BUN/Creatinine Ratio 10 (6-20) Glucose Level 106 mg/dL (70-99) Calcium Level 9.2 mg/dL (8.5-10.1) Magnesium Level 1.8 mg/dL (1.8-2.4) Total Bilirubin 0.3 mg/dL (0.2-1.0) Aspartate Amino Transf (AST/SGOT) 13 U/L (15-37) Alanine Aminotransferase (ALT/SGPT) 24 U/L (14-59) Alkaline Phosphatase 108 U/L (46-116) Troponin I Quantitative < 0.017 ng/mL (0.000-0.055) IJ-Nay-Y-Type Natriuretic Peptide 30 pg/mL (0-124) Total Protein 7.4 g/dL (6.4-8.2) Albumin 4.0 g/dL (3.4-5.0) Albumin/Globulin Ratio 1.2 (1.0-1.7) Lipase 42 U/L (73-393) Images: Images CXR Impression: 1. No acute cardiopulmonary process. Negative CTA of the chest Assessment/Plan Assessment/Plan Chest pain concerning for unstable angina/NSTEMI History of diabetes mellitus type 2 Morbid obesity History of diverticulitis Strong family history of heart disease EKG showing no acute ST elevations Troponin negative x1 Continue aspirin, consider Plavix if intermediate risk will defer this to cardiology Cardiology consulted for predischarge stress testing or left heart cath Continue nitroglycerin as needed for pain Continue beta-nato if blood pressures allow Continue high intensity statins IV morphine as needed Consider Lovenox Maintain O2 sats between 88 to 95% Trend troponins Repeat EKG in the a.m. Continue telemetry monitoring Monitor for electrolyte abnormalities Avoid NSAIDs Justifications for Admission Other Justification MADELINE VIRGEN MD Oct 17, 2020 22:06
[2020-10-17] MEDS ORDERED: MORPHINE SULFATE 2 MG/ML INJ. IV PRN (22:15)
[2020-10-17] MEDS ORDERED: MORPHINE SULFATE 2 MG/ML INJ. IVP PRN (22:15)
[2020-10-17] MEDS ORDERED: ONDANSETRON PF 4 MG/2 ML VIAL. IVP PRN (22:15)
[2020-10-17] MEDS ORDERED: ACETAMINOPHEN 325 MG TABLET. PO PRN (22:15)
[2020-10-17] MEDS ORDERED: SENNOSIDES 8.6 MG TABLET PO PRN (22:15)
[2020-10-17] MEDS ORDERED: DOCUSATE SODIUM 100 MG CAPSULE. PO PRN (22:15)
[2020-10-17] MEDS ORDERED: DEXTROSE 50% 25 GM / 50ML DISP.SYRIN. IV PRN (22:15)
[2020-10-17 22:25] LABS: BILIRUBIN,URINE NEGATIVE (NEG); CLARITY,URINE CLEAR; COLOR,URINE YELLOW; NITRITE,URINE NEGATIVE (NEG); PH,URINE 5.5 (<5.0-8.0); PROTEIN,URINE NEGATIVE (NEG-TRACE); UROBILINOGEN,URINE 0.2 mg/dL (0.2 mg/dL)
[2020-10-17 22:31] LABS: BACTERIA,URINE 0 /HPF (0-FEW); RBC,URINE 0 /HPF (0-2); WBC,URINE 0 /HPF (0-4)
[2020-10-17] MEDS: ATORVASTATIN CALCIUM 40 MG TABLET. PO SCH (22:46)
[2020-10-17] MEDS: ENOXAPARIN 40 MG/0.4 ML SYRINGE. SQ SCH (22:47)
[2020-10-17] MEDS: IV NORMAL SALINE 1000ML BAG 1,000 ML IV SCH (22:47)
[2020-10-17 23:06] LABS: CHOLESTEROL/HDL RATIO 3.9
[2020-10-18] VITALS (15 sets, daily range): BP systolic 96–146; BP diastolic 50–87
[2020-10-18] MEDS: INSULIN LISPRO 300 UNITS/3 ML VIAL. SQ SCH ×3 (08:00→17:00)
[2020-10-18 08:14] LABS: BASO % 1 % (0-3); EOS # 0.2 x10^3/uL (0.0-0.7); EOS % 3 % (0-3); HEMATOCRIT 36.2 % (36.0-47.0); HEMOGLOBIN 11.8 g/dL (12.0-15.5); LYMPH # 1.6 x10^3/uL (1.0-4.8); LYMPH % 22 % (24-48); MEAN CORPUSCULAR HEMOGLOBIN 28 pg (25-35); MEAN CORPUSCULAR HGB CONC 33 g/dL (31-37); MEAN CORPUSCULAR VOLUME 85 fL (79-100); MONO # 0.7 x10^3/uL (0.0-1.1); MONO % 10 % (0-9); NEUT % 66 % (31-73); PLATELET COUNT 265 x10^3/uL (140-400); RED BLOOD COUNT 4.25 x10^6/uL (3.50-5.40); RED CELL DISTRIBUTION WIDTH 14.5 % (11.5-14.5); WHITE BLOOD COUNT 7.6 x10^3/uL (4.0-11.0)
[2020-10-18 08:17] LABS: CALCIUM 8.2 mg/dL (8.5-10.1); CREATININE 0.6 mg/dL (0.6-1.0); GFR 113.1; PHOSPHORUS 2.8 mg/dL (2.6-4.7)
[2020-10-18] MEDS: PANTOPRAZOLE 40 MG TABLET.DR. PO SCH (09:00)
[2020-10-18] MEDS: ASPIRIN ENTERIC COATED 81 MG TABLET.DR. PO SCH (09:00)
[2020-10-18] MEDS: IV NORMAL SALINE 1000ML BAG 1,000 ML IV SCH ×2 (09:00→18:15)
--- NOTE | 2020-10-18 10:57 | PDOC ---
[facility] PROGRESS NOTE Date of Service DOS: DATE: 10/18/20 TIME: 10:49 Chief Complaint Chief Complaint CC: Chest pain Diabetes-Type II Diverticulitis ENDOMETRIOSIS Hysterectomy Tubal ligation History of Present Illness History of Present Illness 10/18 Pt seen and examined. Romeo RN and DW case management. Pt is awaiting a heart catheterization approval from cardiology. Pt still has chest tightness and pain. Pt still has SOA. Pt is calm and no acute distress. HPI: Patient is a 35-year-old female with past medical history of diabetes mellitus type 2, endometriosis and diverticulitis who presents with chest pain that started this morning that felt like heartburn and she had some associated shortness of breath. She also complained of some dizziness nausea. There was also pressure-like sensation and it did radiate to her right shoulder. She endorses some tingling in her both of her arms. Patient denies any recent travel or operation. Patient was vaccinated for COVID-19 already. Patient says she had the same chest pain earlier this month, she was admitted to hospital, her cardiac enzymes were normal. Patient was seen by cardiology, recommended outpatient stress test. Patient was discharged home, had stress test done at an outpatient setting, she could not tolerate the treadmill test. Patient then had a nuclear stress test done, it showed some area of abnormality. Correspondence Specialist recommended for outpatient cardiac catheterization procedure, scheduled on October 25. Patient was advised to come to ER if she start having chest pain again. Vitals/I&O Vitals/I&O: Vital Signs Date Time Temp Pulse Resp B/P (MAP) Pulse Ox O2 Delivery O2 Flow Rate FiO2 10/18/20 08:16 Room Air 10/18/20 07:00 97.8 71 18 104/54 (71) 96 97.8 Physical Exam General: Alert, Oriented X3, Cooperative, No acute distress Heart: Regular rate, Normal S1, Normal S2, No murmurs, Gallops Lungs: Clear Abdomen: Normal bowel sounds, Soft, No tenderness Extremities: No clubbing, No cyanosis, Normal pulses Skin: No rashes, No breakdown, No significant lesion Labs Labs: Laboratory Tests Test 10/17/20 18:15 10/17/20 22:00 10/17/20 22:35 10/18/20 02:00 White Blood Count 12.3 x10^3/uL (4.0-11.0) Red Blood Count 4.57 x10^6/uL (3.50-5.40) Hemoglobin 12.8 g/dL (12.0-15.5) Hematocrit 38.5 % (36.0-47.0) Mean Corpuscular Volume 84 fL (79-100) Mean Corpuscular Hemoglobin 28 pg (25-35) Mean Corpuscular Hemoglobin Concent 33 g/dL (31-37) Red Cell Distribution Width 14.2 % (11.5-14.5) Platelet Count 327 x10^3/uL (140-400) Neutrophils (%) (Auto) 67 % (31-73) Lymphocytes (%) (Auto) 24 % (24-48) Monocytes (%) (Auto) 7 % (0-9) Eosinophils (%) (Auto) 1 % (0-3) Basophils (%) (Auto) 1 % (0-3) Neutrophils # (Auto) 8.2 x10^3/uL (1.8-7.7) Lymphocytes # (Auto) 2.9 x10^3/uL (1.0-4.8) Monocytes # (Auto) 0.9 x10^3/uL (0.0-1.1) Eosinophils # (Auto) 0.2 x10^3/uL (0.0-0.7) Basophils # (Auto) 0.1 x10^3/uL (0.0-0.2) Sodium Level 140 mmol/L (136-145) Potassium Level 3.9 mmol/L (3.5-5.1) Chloride Level 104 mmol/L (98-107) Carbon Dioxide Level 22 mmol/L (21-32) Anion Gap 14 (6-14) Blood Urea Nitrogen 7 mg/dL (7-20) Creatinine 0.7 mg/dL (0.6-1.0) Estimated GFR (Cockcroft-Gault) 94.7 BUN/Creatinine Ratio 10 (6-20) Glucose Level 106 mg/dL (70-99) Calcium Level 9.2 mg/dL (8.5-10.1) Magnesium Level 1.8 mg/dL (1.8-2.4) Total Bilirubin 0.3 mg/dL (0.2-1.0) Aspartate Amino Transf (AST/SGOT) 13 U/L (15-37) Alanine Aminotransferase (ALT/SGPT) 24 U/L (14-59) Alkaline Phosphatase 108 U/L (46-116) Troponin I Quantitative < 0.017 ng/mL (0.000-0.055) < 0.017 ng/mL (0.000-0.055) JD-Awz-Z-Type Natriuretic Peptide 30 pg/mL (0-124) Total Protein 7.4 g/dL (6.4-8.2) Albumin 4.0 g/dL (3.4-5.0) Albumin/Globulin Ratio 1.2 (1.0-1.7) Lipase 42 U/L (73-393) Urine Color Yellow Urine Clarity Clear Urine pH 5.5 (<5.0-8.0) Urine Specific [place] >=1.030 (1.000-1.030) Urine Protein Negative mg/dL (NEG-TRACE) Urine Glucose (UA) Negative mg/dL (NEG) Urine Ketones (Stick) Negative mg/dL (NEG) Urine Blood Negative (NEG) Urine Nitrite Negative (NEG) Urine Bilirubin Negative (NEG) Urine Urobilinogen Dipstick 0.2 mg/dL (0.2 mg/dL) Urine Leukocyte Esterase Negative (NEG) Urine RBC 0 /HPF (0-2) Urine WBC 0 /HPF (0-4) Urine Squamous Epithelial Cells Few /LPF Urine Bacteria 0 /HPF (0-FEW) Urine Mucus Slight /LPF Triglycerides Level 142 mg/dL (0-150) Cholesterol Level 180 mg/dL (0-200) LDL Cholesterol, Calculated 106 mg/dL (0-100) VLDL Cholesterol, Calculated 28 mg/dL (0-40) Non-HDL Cholesterol Calculated 134 mg/dL (0-129) HDL Cholesterol 46 mg/dL (40-60) Cholesterol/HDL Ratio 3.9 Test 10/18/20 05:10 10/18/20 07:20 10/18/20 08:26 Troponin I Quantitative < 0.017 ng/mL (0.000-0.055) White Blood Count 7.6 x10^3/uL (4.0-11.0) Red Blood Count 4.25 x10^6/uL (3.50-5.40) Hemoglobin 11.8 g/dL (12.0-15.5) Hematocrit 36.2 % (36.0-47.0) Mean Corpuscular Volume 85 fL (79-100) Mean Corpuscular Hemoglobin 28 pg (25-35) Mean Corpuscular Hemoglobin Concent 33 g/dL (31-37) Red Cell Distribution Width 14.5 % (11.5-14.5) Platelet Count 265 x10^3/uL (140-400) Neutrophils (%) (Auto) 66 % (31-73) Lymphocytes (%) (Auto) 22 % (24-48) Monocytes (%) (Auto) 10 % (0-9) Eosinophils (%) (Auto) 3 % (0-3) Basophils (%) (Auto) 1 % (0-3) Neutrophils # (Auto) 5.0 x10^3/uL (1.8-7.7) Lymphocytes # (Auto) 1.6 x10^3/uL (1.0-4.8) Monocytes # (Auto) 0.7 x10^3/uL (0.0-1.1) Eosinophils # (Auto) 0.2 x10^3/uL (0.0-0.7) Basophils # (Auto) 0.0 x10^3/uL (0.0-0.2) Sodium Level 141 mmol/L (136-145) Potassium Level 4.0 mmol/L (3.5-5.1) Chloride Level 106 mmol/L (98-107) Carbon Dioxide Level 25 mmol/L (21-32) Anion Gap 10 (6-14) Blood Urea Nitrogen 6 mg/dL (7-20) Creatinine 0.6 mg/dL (0.6-1.0) Estimated GFR (Cockcroft-Gault) 113.1 Glucose Level 85 mg/dL (70-99) Calcium Level 8.2 mg/dL (8.5-10.1) Phosphorus Level 2.8 mg/dL (2.6-4.7) Magnesium Level 2.0 mg/dL (1.8-2.4) Glucose (Fingerstick) 92 mg/dL (70-99) Review of Systems Review of Systems: Denies abdominal pain. Denies Calf or leg pain b/l. Assessment and Plan Assessmemt and Plan Problems Medical Problems: (1) Chest pain Status: Acute Assessment: CC: Chest pain Diabetes-Type II Diverticulitis ENDOMETRIOSIS Hysterectomy Tubal ligation Plan: Awaiting Cardiology to schedule heart catheterization Continue Cardiac monitoring Serial enzymes Serial ECG Home Meds DVT prophylaxis Full Code Comment Review of Relevant I have reviewed the following items catia (where applicable) has been applied. Medications: Current Medications Medications (Trade) Dose Ordered Sig/Lexii Route PRN Reason Start Time Stop Time Status Last Admin Dose Admin Aspirin (Aspirin Chewable) 324 mg 1X ONCE PO 10/17/20 19:00 10/17/20 19:01 DC 10/17/20 18:35 Nitroglycerin (Nitrostat) 0.4 mg PRN Q5MIN PRN SL CHEST PAIN 10/17/20 18:30 10/17/20 18:34 Ondansetron HCl (Zofran) 4 mg PRN Q6HRS PRN IVP NAUSEA/VOMITING 10/17/20 22:15 10/17/20 22:47 Aspirin (Ecotrin) 81 mg [id number] PO 10/18/20 08:00 10/18/20 09:00 Sodium Chloride 1,000 ml @ 100 mls/hr Q10H IV 10/17/20 22:15 10/18/20 09:00 Enoxaparin Sodium (Lovenox 40mg Syringe) 40 mg Q24H SQ 10/17/20 22:15 10/17/20 22:47 Pantoprazole Sodium (Protonix) 40 mg DAILYAC PO 10/18/20 07:30 10/18/20 09:00 Atorvastatin Calcium (Lipitor) 40 mg QHS PO 10/17/20 22:30 10/17/20 22:46 Justifications for Admission Chest Pain Indications Serious Diagnosis?: Yes Justification for admission: Chest pain may be indicative of potentially serious diagnosis/diagnoses Please state condition(s) which will require inpatient level of care for further evaluation and management. Is patient at high risk?: Yes Justification for admission: Patient is high risk based on hemodynamic instability, CHF, abnormal EKG/ECG/cardiac biomarkers/physical exam findings in context of chest pain persisting despite parenteral analgesics & optimal anti-anginal therapy. Other Justification ALLEN ALBERT III DO Oct 18, 2020 10:57
--- NOTE | 2020-10-18 11:34 | NUR ---
SS following for discharge planning. SS reviewed pt chart and discussed with pt RN. Pt is from home and is currently on room air. Cardiology consulted. Discharge plan is to home when medically ready. SS will continue to follow for discharge planning.
--- NOTE | 2020-10-18 11:46 | PDOC2 ---
CLAY AVILA INSTALLERS MECHANICAL 10/18/20 1146: CARDIAC CONSULT DATE OF CONSULT Date of Consult DATE: 10/18/20 TIME: 11:26 REASON FOR CONSULT Reason for Consult: Chest pain REFERRING PHYSICIAN Referring Physician: Karl SOURCE Source: Chart review, Patient HISTORY OF PRESENT ILLNESS HISTORY OF PRESENT ILLNESS This is a pleasant 35 yo female admitted for complains of right chest tightness. She kept on having this symptom and also had some nausea and SOA. She recently had an abnormal stress test. Presently CP free. No known hx of CAD. No further syncope as she had this episode recently evaluated from recent admission. PAST MEDICAL HISTORY Past Medical History Cardiovascular: No pertinent hx Pulmonary: No pertinent hx CENTRAL NERVOUS SYSTEM: Other (No pertinent history) GI: No pertinent hx Heme/Onc: Anemia NOS Hepatobiliary: No pertinent hx Psych: No pertinent hx Musculoskeletal: Other (no pertinenthistory) Rheumatologic: No pertinent hx Infectious disease: No pertinent hx ENT: No pertinent hx Renal/: No pertinent hx Endocrine: Diabetes (pre) Dermatology: No pertinent hx PAST SURGICAL HISTORY Past Surgical History (x3), Hysterectomy FAMILY HISTORY Family History Coronary Artery Disease (father) SOCIAL HISTORY Social History Smoke: No ALCOHOL: none Drugs: None Lives: with Family CURRENT MEDICATIONS CURRENT MEDICATIONS Current Medications Medications (Trade) Dose Ordered Sig/Lexii Route PRN Reason Start Time Stop Time Status Last Admin Dose Admin Aspirin (Aspirin Chewable) 324 mg 1X ONCE PO 10/17/20 19:00 10/17/20 19:01 DC 10/17/20 18:35 Nitroglycerin (Nitrostat) 0.4 mg PRN Q5MIN PRN SL CHEST PAIN 10/17/20 18:30 10/17/20 18:34 Ondansetron HCl (Zofran) 4 mg PRN Q6HRS PRN IVP NAUSEA/VOMITING 10/17/20 22:15 10/17/20 22:47 Aspirin (Ecotrin) 81 mg DAILYWBKFT PO 10/18/20 08:00 10/18/20 09:00 Sodium Chloride 1,000 ml @ 100 mls/hr Q10H IV 10/17/20 22:15 10/18/20 09:00 Enoxaparin Sodium (Lovenox 40mg Syringe) 40 mg Q24H SQ 10/17/20 22:15 10/17/20 22:47 Pantoprazole Sodium (Protonix) 40 mg DAILYAC PO 10/18/20 07:30 10/18/20 09:00 Atorvastatin Calcium (Lipitor) 40 mg QHS PO 10/17/20 22:30 10/17/20 22:46 ALLERGIES ALLERGIES: Coded Allergies: No Known Drug Allergies (Unverified , 05/12/20) ROS Review of System 14 point ROS evaluated with pertinent positives noted per HPI PHYSICAL EXAM General: Alert, Oriented X3, Cooperative, No acute distress HEENT: Atraumatic, Mucous membr. moist/pink Lungs: Clear to auscultation, Normal air movement Heart: Regular rate (SR), Normal S1, Normal S2, No murmurs Abdomen: Soft, No tenderness, Other (obese) Extremities: No cyanosis, No edema Skin: No breakdown, No significant lesion Neuro: Normal speech, Sensation intact Psych/Mental Status: Mental status NL, Mood NL MUSCULOSKELETAL: Osteoarthritic changes both hands VITALS/I&O VITALS/I&O: Vital Signs Date Time Temp Pulse Resp B/P (MAP) Pulse Ox O2 Delivery O2 Flow Rate FiO2 10/18/20 11:00 98.1 69 18 109/50 (69) 98 Room Air 98.1 LABS Lab: Laboratory Tests Test 10/17/20 18:15 10/17/20 22:00 10/17/20 22:35 10/18/20 02:00 White Blood Count 12.3 x10^3/uL (4.0-11.0) H Red Blood Count 4.57 x10^6/uL (3.50-5.40) Hemoglobin 12.8 g/dL (12.0-15.5) Hematocrit 38.5 % (36.0-47.0) Mean Corpuscular Volume 84 fL (79-100) Mean Corpuscular Hemoglobin 28 pg (25-35) Mean Corpuscular Hemoglobin Concent 33 g/dL (31-37) Red Cell Distribution Width 14.2 % (11.5-14.5) Platelet Count 327 x10^3/uL (140-400) Neutrophils (%) (Auto) 67 % (31-73) Lymphocytes (%) (Auto) 24 % (24-48) Monocytes (%) (Auto) 7 % (0-9) Eosinophils (%) (Auto) 1 % (0-3) Basophils (%) (Auto) 1 % (0-3) Neutrophils # (Auto) 8.2 x10^3/uL (1.8-7.7) H Lymphocytes # (Auto) 2.9 x10^3/uL (1.0-4.8) Monocytes # (Auto) 0.9 x10^3/uL (0.0-1.1) Eosinophils # (Auto) 0.2 x10^3/uL (0.0-0.7) Basophils # (Auto) 0.1 x10^3/uL (0.0-0.2) Sodium Level 140 mmol/L (136-145) Potassium Level 3.9 mmol/L (3.5-5.1) Chloride Level 104 mmol/L (98-107) Carbon Dioxide Level 22 mmol/L (21-32) Anion Gap 14 (6-14) Blood Urea Nitrogen 7 mg/dL (7-20) Creatinine 0.7 mg/dL (0.6-1.0) Estimated GFR (Cockcroft-Gault) 94.7 BUN/Creatinine Ratio 10 (6-20) Glucose Level 106 mg/dL (70-99) H Calcium Level 9.2 mg/dL (8.5-10.1) Magnesium Level 1.8 mg/dL (1.8-2.4) Total Bilirubin 0.3 mg/dL (0.2-1.0) Aspartate Amino Transferase (AST) 13 U/L (15-37) L Alanine Aminotransferase (ALT) 24 U/L (14-59) Alkaline Phosphatase 108 U/L (46-116) Troponin I Quantitative < 0.017 ng/mL (0.000-0.055) < 0.017 ng/mL (0.000-0.055) JW-Xfp-W-Type Natriuretic Peptide 30 pg/mL (0-124) Total Protein 7.4 g/dL (6.4-8.2) Albumin 4.0 g/dL (3.4-5.0) Albumin/Globulin Ratio 1.2 (1.0-1.7) Lipase 42 U/L (73-393) L Urine Color Yellow Urine Clarity Clear Urine pH 5.5 (<5.0-8.0) Urine Specific Raymond >=1.030 (1.000-1.030) Urine Protein Negative mg/dL (NEG-TRACE) Urine Glucose (UA) Negative mg/dL (NEG) Urine Ketones (Stick) Negative mg/dL (NEG) Urine Blood Negative (NEG) Urine Nitrite Negative (NEG) Urine Bilirubin Negative (NEG) Urine Urobilinogen Dipstick 0.2 mg/dL (0.2 mg/dL) Urine Leukocyte Esterase Negative (NEG) Urine RBC 0 /HPF (0-2) Urine WBC 0 /HPF (0-4) Urine Squamous Epithelial Cells Few /LPF Urine Bacteria 0 /HPF (0-FEW) Urine Mucus Slight /LPF Triglycerides Level 142 mg/dL (0-150) Cholesterol Level 180 mg/dL (0-200) LDL Cholesterol, Calculated 106 mg/dL (0-100) H VLDL Cholesterol, Calculated 28 mg/dL (0-40) Non-HDL Cholesterol Calculated 134 mg/dL (0-129) H HDL Cholesterol 46 mg/dL (40-60) Cholesterol/HDL Ratio 3.9 Test 10/18/20 05:10 10/18/20 07:20 10/18/20 08:26 Troponin I Quantitative < 0.017 ng/mL (0.000-0.055) White Blood Count 7.6 x10^3/uL (4.0-11.0) Red Blood Count 4.25 x10^6/uL (3.50-5.40) Hemoglobin 11.8 g/dL (12.0-15.5) L Hematocrit 36.2 % (36.0-47.0) Mean Corpuscular Volume 85 fL (79-100) Mean Corpuscular Hemoglobin 28 pg (25-35) Mean Corpuscular Hemoglobin Concent 33 g/dL (31-37) Red Cell Distribution Width 14.5 % (11.5-14.5) Platelet Count 265 x10^3/uL (140-400) Neutrophils (%) (Auto) 66 % (31-73) Lymphocytes (%) (Auto) 22 % (24-48) L Monocytes (%) (Auto) 10 % (0-9) H Eosinophils (%) (Auto) 3 % (0-3) Basophils (%) (Auto) 1 % (0-3) Neutrophils # (Auto) 5.0 x10^3/uL (1.8-7.7) Lymphocytes # (Auto) 1.6 x10^3/uL (1.0-4.8) Monocytes # (Auto) 0.7 x10^3/uL (0.0-1.1) Eosinophils # (Auto) 0.2 x10^3/uL (0.0-0.7) Basophils # (Auto) 0.0 x10^3/uL (0.0-0.2) Sodium Level 141 mmol/L (136-145) Potassium Level 4.0 mmol/L (3.5-5.1) Chloride Level 106 mmol/L (98-107) Carbon Dioxide Level 25 mmol/L (21-32) Anion Gap 10 (6-14) Blood Urea Nitrogen 6 mg/dL (7-20) L Creatinine 0.6 mg/dL (0.6-1.0) Estimated GFR (Cockcroft-Gault) 113.1 Glucose Level 85 mg/dL (70-99) Calcium Level 8.2 mg/dL (8.5-10.1) L Phosphorus Level 2.8 mg/dL (2.6-4.7) Magnesium Level 2.0 mg/dL (1.8-2.4) Glucose (Fingerstick) 92 mg/dL (70-99) Laboratory Tests 10/17/20 18:15 10/18/20 07:20 Laboratory Tests 10/17/20 18:15 10/18/20 07:20 STRESS TEST STRESS TEST 1. The patient was unable to perform a treadmill stress test. 2. On Lexiscan stress testing there was no EKG evidence of stress-induced ischemia. 3. Nuclear imaging on a technical difficult study suggest a possible mild area of reversible ischemia in the anterior wall. 4. Left ventricular systolic function is normal with an ejection fraction of 67%. 5. Moderate to moderately low risk Lexiscan nuclear stress test. Electronically Approved : 10/07/2020 10:49:00 ASSESSMENT/PLAN ASSESSMENT/PLAN 1. Recurrent chest pain: UA features. recent MPI is abnormal as noted above concerning of ischemia 2. Recent syncope: possibly from arrhythmia. EF and WM was nml per previous TTE 3. Metabolic syndrome. 4. Obesity 5. Family hx of premature CAD 6. HLP Recommendations 1. LHC with possible PCI today, risks and benefits discussed and agreeable to proceed 2. ASA. 3. MCOT was returned last week and awaiting final report. 4. Secondary prevention measures ALONZO STEELE MD 10/18/202011: CARDIAC CONSULT ASSESSMENT/PLAN ASSESSMENT/PLAN Patient seen and examined. Agree with SENIOR MANUFACTURING SUPERVISOR's assessment and plan. CP with mixed features. Recent MPI showed ischemia Plan cardiac cath and possible PCI Plan for loop recorder implantation if MCOT negative to further evaluate recurrent syncope Thank you for your consultation CLAY AVILA APRN Oct 18, 2020 11:46 ALONZO STEELE MD Oct 18, 2020 20:12
[2020-10-18] MEDS ORDERED: MIDAZOLAM HCL/PF 2 MG/2 ML VIAL. ONE (15:04)
[2020-10-18] MEDS ORDERED: HEPARIN for IV BOLUS 10,000 UNIT/10 ML VIAL. ONE (15:04)
[2020-10-18] MEDS ORDERED: VERAPAMIL 5 MG/2 ML VIAL. ONE (15:04)
[2020-10-18] MEDS ORDERED: fentaNYL PF VIAL 100 MCG/2 ML VIAL ONE (15:04)
[2020-10-18] MEDS ORDERED: NITROGLYCERIN 200 MCG/2 ML SYRINGE FOR CATH/VASC LAB. ONE (15:05)
[2020-10-18] MEDS ORDERED: IODIXANOL 320 MG/ML 100 ML VIAL. ONE (15:07)
[2020-10-18] MEDS ORDERED: LIDOCAINE 1% PF 2 ML VIAL. ONE (15:07)
[2020-10-18] MEDS ORDERED: MIDAZOLAM HCL/PF 2 MG/2 ML VIAL. IV ONE (15:15)
[2020-10-18] MEDS ORDERED: VERAPAMIL 5 MG/2 ML VIAL. IART ONE (15:15)
[2020-10-18] MEDS ORDERED: LIDOCAINE 1% PF 2 ML VIAL. INJ ONE (15:15)
[2020-10-18] MEDS ORDERED: IODIXANOL 320 MG/ML 100 ML VIAL. IART ONE (15:15)
[2020-10-18] MEDS ORDERED: NITROGLYCERIN 200 MCG/2 ML SYRINGE FOR CATH/VASC LAB. IART ONE (15:15)
[2020-10-18] MEDS ORDERED: fentaNYL PF VIAL 100 MCG/2 ML VIAL IV ONE (15:15)
[2020-10-18] MEDS ORDERED: HEPARIN for IV BOLUS 10,000 UNIT/10 ML VIAL. IART ONE (15:15)
--- NOTE | 2020-10-18 15:44 | PDOC ---
MODERATE SEDATION ASSESSMENT RISKS/ALTERNATIVES Risks/Alternatives Risks and alternatives of this type of sedation and procedure discussed with: RISK/ALTERNATIVES: Patient H & P ON CHART H & P H & P on chart and reviewed for co-morbid conditions and appropriate labs. H&P ON CHART: Yes STATUS PREG STATUS ASSESSED: N/A MEDS/ALLERGIES REVIEWED Meds/Allergies Reviewed Medications and Allergies including time and route of recently administered narcotics and sedatives. MEDS/ALLERGIES REVIEWED: Yes ASA RATING ASA RATING: II AIRWAY ASSESSMENT Airway Assessment Airway patency, oral function limitations, presence of caps, crowns, dentures, partials, and ability to extend neck assessed. AIRWAY ASSESSMENT: Yes MALLAMPATI SCORE MALLAMPATI SCORE: II PRE-SEDATION ASSESSMENT PRE-SEDATION ASSESSMENT: Yes ALONZO STEELE MD Oct 18, 2020 15:44
[2020-10-18] MEDS ORDERED: IV 1/2 NORMAL SALINE 1,000 ML IV SCH (15:45)
--- NOTE | 2020-10-18 15:58 | CARD ---
MR#: [id number] Date of Study: 10/18/2020 Ordering Physician: CLAY AVILA, Referring Physician: CLAY AVILA, Tech: RT Adolfo(R) APPROVED REPORT Technologist: RT Adolfo(R) Nurse: Ekaterina Stewart RN Procedure(s) performed: Left heart catheterization and selective coronary angiography via right trans radial approach FL TIME: 1.9 MINS DOSE: 22 GYCM2 CONTRAST: 54 ML MODERATE SEDATION: 21 MINS INDICATION The indication(s) include : Chest pain concerning for unstable angina, positive stress test. [facility] Clinical Frailty Scale [facility] Clinical Frailty Scale: Managing Well Heart Failure Heart Failure: Yes If Yes, Newly Diagnosed: No If Yes, HF Type: Diastolic If Yes, NYHA Class: Class II CASE TECHNIQUE IV conscious sedation was used throughout procedure with appropriate monitoring and was performed in the presence of a registered nurse who was an independent trained observer other than the physician p erforming the procedure. During this case, Fluoroscopy and low osmolar contrast were used for imaging . Specimen(s) Removed: No Estimated Blood loss: 15 cc's. PROCEDURE NARRATIVE After explaining the risks, benefits and alternative options, informed consent was obtained from marce ent. Patient was brought to the cardiac Family Service Worker and right wrist was prepped and draped in the usual fashion after confirming a positive modified Sabino's test. Arterial access was obtained in the righ t radial artery and a 6 Surinamese sheath was inserted. 6 Surinamese Jos catheter was used to perform chey ective angiography of the left and right coronary arteries. LVEDP and transaortic gradients were dieter sured. Left ventriculography was not performed since recent 2D echo showed normal LV systolic functi on patient tolerated the procedure well. Hemostasis was achieved using TR band. There were no immed iate complications. The following findings were noted. FINDINGS 1. Hemodynamics: Left ventricular end-diastolic pressure of 11 mmHg. No pullback gradient across th e aortic valve. 2. Coronary angiography: a. The left main coronary artery arose from the left sinus of Valsalva, gave rise to the left anteri or descending and left circumflex arteries and did not show any significant stenosis. b. The left anterior descending artery did not show any significant stenosis. c. The left circumflex artery did not show any significant stenosis. d. The right coronary artery was a large and dominant vessel arising from the right sinus of Valsalv a that did not show any significant stenosis. Conclusion No significant coronary artery disease Signed by : Mack Smith, Electronically Approved : 10/18/2020 15:57:34
[2020-10-18] MEDS: ATORVASTATIN CALCIUM 40 MG TABLET. PO SCH (20:10)
[2020-10-18] MEDS: ENOXAPARIN 40 MG/0.4 ML SYRINGE. SQ SCH (21:35)
[2020-10-19 00:09] LABS: HEMOGLOBIN A1C 5.3 % (4.8-5.6)
[2020-10-19 02:23] VITALS: BP 112/59
[2020-10-19] MEDS: IV NORMAL SALINE 1000ML BAG 1,000 ML IV SCH (04:15)
[2020-10-19] MEDS: PANTOPRAZOLE 40 MG TABLET.DR. PO SCH (06:29)
[2020-10-19 07:00] VITALS: BP 112/62
[2020-10-19] MEDS: INSULIN LISPRO 300 UNITS/3 ML VIAL. SQ SCH ×2 (08:00→12:00)
--- NOTE | 2020-10-19 08:42 | PDOC ---
[employer] PROGRESS NOTE Date of Service DOS: DATE: 10/19/20 TIME: 08:37 Chief Complaint Chief Complaint CC: Chest pain SOA Diabetes-Type II Diverticulitis ENDOMETRIOSIS Hysterectomy Tubal ligation History of Present Illness History of Present Illness 10/19 Pt seen and examined. Romeo RN. Pt had heat catheterization yesterday and it did not show any significant. Pt is feeling better today and is ready to go home. 10/18 Pt seen and examined. Romeo RN and ROMEO case management. Pt is awaiting a heart catheterization approval from cardiology. Pt still has chest tightness and pain. Pt still has SOA. Pt is calm and no acute distress. HPI: Patient is a 35-year-old female with past medical history of diabetes mellitus type 2, endometriosis and diverticulitis who presents with chest pain that started this morning that felt like heartburn and she had some associated shortness of breath. She also complained of some dizziness nausea. There was also pressure-like sensation and it did radiate to her right shoulder. She endorses some tingling in her both of her arms. Patient denies any recent travel or operation. Patient was vaccinated for COVID-19 already. Patient says she had the same chest pain earlier this month, she was admitted to hospital, her cardiac enzymes were normal. Patient was seen by cardiology, recommended outpatient stress test. Patient was discharged home, had stress test done at an outpatient setting, she could not tolerate the treadmill test. Patient then had a nuclear stress test done, it showed some area of abnormality. Conductor Pullman recommended for outpatient cardiac catheterization procedure, scheduled on October 25. Patient was advised to come to ER if she start having chest pain again. Vitals/I&O Vitals/I&O: Vital Signs Date Time Temp Pulse Resp B/P (MAP) Pulse Ox O2 Delivery O2 Flow Rate FiO2 10/19/20 07:00 99.0 64 16 112/62 (79) 98 Room Air 99.0 10/18/20 15:44 2.0 I & O 10/18/20 10/18/20 10/19/20 15:00 23:00 07:00 Intake Total 0 ml 1450 ml 150 ml Balance 0 ml 1450 ml 150 ml Physical Exam General: Alert, Oriented X3, Cooperative, No acute distress Heart: Regular rate (SR), Normal S1, Normal S2, No murmurs Lungs: Clear Abdomen: Soft, No tenderness, Other (obese) Extremities: No cyanosis, No edema Skin: No breakdown, No significant lesion Labs Labs: Laboratory Tests Test 10/18/20 11:50 10/18/20 12:18 10/18/20 16:59 10/18/20 20:36 SARS-CoV-2 Antigen (Rapid) Negative (NEGATIVE) Glucose (Fingerstick) 82 mg/dL (70-99) 117 mg/dL (70-99) 139 mg/dL (70-99) Test 10/19/20 07:41 Glucose (Fingerstick) 101 mg/dL (70-99) Review of Systems Review of Systems: Denies abdominal pain. Denies calf pain b/l. Assessment and Plan Assessmemt and Plan Problems Medical Problems: (1) Chest pain Status: Acute Assessment: CC: Chest pain SOA Diabetes-Type II Diverticulitis ENDOMETRIOSIS Hysterectomy Tubal ligation Plan: Discharge today Continue Cardiac monitoring Serial enzymes Serial ECG Home Meds DVT prophylaxis Full Code Comment Review of Relevant I have reviewed the following items catia (where applicable) has been applied. Medications: Current Medications Medications (Trade) Dose Ordered Sig/Lexii Route PRN Reason Start Time Stop Time Status Last Admin Dose Admin Nitroglycerin (Nitroglycerin) 200 mcg 1X ONCE IART 10/18/20 15:15 10/18/20 15:16 DC 10/18/20 15:32 Verapamil HCl (Verapamil) 2.5 mg 1X ONCE IART 10/18/20 15:15 10/18/20 15:16 DC 10/18/20 15:32 Heparin Sodium (Porcine) (Heparin Sodium) 2,500 unit 1X ONCE IART 10/18/20 15:15 10/18/20 15:16 DC 10/18/20 15:32 Heparin Sodium/ Sodium Chloride (HEPARIN for ARTERIAL LINE FLUSH) 1,000 unit 1X ONCE IART 10/18/20 15:15 10/18/20 15:16 DC 10/18/20 15:15 Heparin Sodium/ Sodium Chloride (HEPARIN for ARTERIAL LINE FLUSH) 1,000 unit 1X ONCE IART 10/18/20 15:15 10/18/20 15:16 DC 10/18/20 15:15 Midazolam HCl (Versed) 2 mg 1X ONCE IV 10/18/20 15:15 10/18/20 15:16 DC 10/18/20 15:29 Fentanyl Citrate (Fentanyl 2ml Vial) 100 mcg 1X ONCE IV 10/18/20 15:15 10/18/20 15:16 DC 10/18/20 15:29 Iodixanol (Visipaque 320) 100 ml 1X ONCE IART 10/18/20 15:15 10/18/20 15:16 DC 10/18/20 15:39 Lidocaine HCl (Xylocaine-Mpf 1% 2ml Vial) 2 ml 1X ONCE INJ 10/18/20 15:15 10/18/20 15:16 DC 10/18/20 15:31 Justifications for Admission Chest Pain Indications Serious Diagnosis?: Yes Justification for admission: Chest pain may be indicative of potentially serious diagnosis/diagnoses Please state condition(s) which will require inpatient level of care for further evaluation and management. Is patient at high risk?: Yes Justification for admission: Patient is high risk based on hemodynamic instability, CHF, abnormal EKG/ECG/cardiac biomarkers/physical exam findings in context of chest pain persisting despite parenteral analgesics & optimal anti-anginal therapy. Other Justification ALLEN ALBERT III DO Oct 19, 2020 08:42
[2020-10-19] MEDS ORDERED: PANT40TA77 PO (08:53)
[2020-10-19] MEDS ORDERED: ATOR40TA59 PO (08:53)
[2020-10-19] MEDS ORDERED: buPROPion SR 100 MG TABLET.SA. PO SCH (09:00)
[2020-10-19] MEDS: ASPIRIN ENTERIC COATED 81 MG TABLET.DR. PO SCH (09:01)
--- NOTE | 2020-10-19 10:14 | NUR ---
SS following up with discharge planning. SS reviewed pt chart and discussed with pt RN. Pt is currently on room air. Discharge order on the chart for home with self care.
[2020-10-19 11:17] VITALS: BP 122/57
[2020-10-19 14:20] VITALS: BP 105/56
--- NOTE | 2020-10-19 14:47 | NUR ---
Discharge Note: [facility] Discharge instructions and discharge home medications reviewed with Patient and a copy given. All questions have been answered and understanding verbalized. The following instructions and handouts were given: discharge instructions, med list, post cath education, radial site education, CP education, hypercholesterolemia education. Discontinued lines and drains: Peripheral IV intact. Patient discharged to Home or Self Care with Self via Wheelchair at 1447.
--- NOTE | 2020-10-20 11:53 | DS ---
DATE OF DISCHARGE: 10/19/2020 ADMITTING DIAGNOSIS: Chest pain. DISCHARGE DIAGNOSIS: Atypical chest pain. CONSULTS: Cardiology. PROCEDURES: Cardiac catheterization, which was clean. HOSPITAL COURSE: The patient is a pleasant, middle-aged female who presented with chest pain. She was admitted. We did serial enzymes, serial EKGs. We consulted Cardiology. She was taken for cardiac catheterization, which was surprisingly clean. Yesterday, I saw and examined her. She is at her baseline, will be discharged home. DISPOSITION: Home. ACTIVITY: As tolerated. DIET: Low sodium. DISCHARGE MEDICATIONS: Please see the MRAD. TOTAL TIME: [address]: Hernan TID: [id number]
[2020-10-20] MEDS ORDERED: metFORMIN 500 MG TABLET PO SCH (17:00)
== END 2020-10-19 14:47 | disposition home or self-care (01) ==
LOC: ER 18:06 → 2 SOUTH 18:56 → ER 19:55
PROVIDERS: ADMIT Internal Medicine; ATTEND Internal Medicine
DX: R07.89 Other chest pain (principal); Z20.822 Contact with and (suspected) exposure to COVID-19; E11.9 Type 2 diabetes mellitus without complications; K57.92 Diverticulitis of intestine, part unspecified, without perforation or abscess without bleeding; E66.01 Morbid (severe) obesity due to excess calories; E88.81 Metabolic syndrome and other insulin resistance; E78.5 Hyperlipidemia, unspecified; Z98.891 History of uterine scar from previous surgery; Z90.710 Acquired absence of both cervix and uterus; Z98.51 Tubal ligation status; Z87.891 Personal history of nicotine dependence; Z79.82 Long term (current) use of aspirin; Z79.84 Long term (current) use of oral hypoglycemic drugs; Z68.37 Body mass index [BMI] 37.0-37.9, adult
CPT/HCPCS: 36415; 71045; 71275; 80048; 80053; 80061; 81001; 82962; 83036; 83690; 83735; 83880; 84100; 84484; 85025; 87426; 93005; 93458; 96361; 96372; 96374; 99152; 99285; C1769; C1894; G0378; J1644; J1650; J1815; J2250; J2405; J3010; J3490; J7030; Q9967; G0379

== ENCOUNTER → 2020-11-14 | Outpatient (CLI) | payer MEDICAID ==
[2020-10-19 14:20] VITALS: BP 105/56
[~2020-11-14] MED LIST changes: +ATOR40TA59 PO; +PANT40TA77 PO
--- NOTE | 2020-11-22 14:34 | CARD ---
MR#: [id number] Date of Study: 11/15/2020 Ordering Physician: ALONZO SMITH, Referring Physician: ALONZO SMITH, Tech: APPROVED REPORT PROCEDURE: Successful implantation of Medtronic Linq loop recorder INDICATIONS: Recurrent syncope of uncertain etiology PROCEDURE DETAILS: An informed consent was obtained from patient. Patient was brought to the procedure suite and her le ft chest and shoulder were prepped and draped in the usual fashion. 20 mL of 2% lidocaine was infilt rated into the skin and subcutaneous tissues for local anesthesia. An incision was made in the left third intercostal space 1 inch from midsternal line and using the introducer and the prior provided w ith the kit, a Medtronic Linq loop recorder serial number [id number] was placed in the subcutaneous tissue. Hemostasis was secured. Patient tolerated the procedure well. There were no immediate comp lications. CONCLUSION: Successful implantation of Medtronic Linq loop recorder for recurrent syncope of uncertain etiology. Signed by : Alonzo Smith, Electronically Approved : 11/22/2020 14:34:12
== END | disposition home or self-care (01) ==
LOC: LINQ 11:10
PROVIDERS: ATTEND Internal Medicine Cardiovascular Disease
DX: R55 Syncope and collapse (principal); I10 Essential (primary) hypertension; K21.9 Gastro-esophageal reflux disease without esophagitis; E11.9 Type 2 diabetes mellitus without complications; Z98.51 Tubal ligation status; Z90.710 Acquired absence of both cervix and uterus; Z98.890 Other specified postprocedural states; Z79.899 Other long term (current) drug therapy; Z79.82 Long term (current) use of aspirin; Z87.891 Personal history of nicotine dependence
CPT/HCPCS: 33285; C1764